=== PATIENT | female | born 1970 | race Caucasian/White ===

== ENCOUNTER → 2018-02-01 07:29 | Outpatient (CLI) | payer OTHER, SELFPAY ==
--- NOTE | 2018-02-01 07:37 | CT_ITS ---
STUDY: CT ABDOMEN AND PELVIS WITHOUT CONTRAST REASON FOR EXAM: Female, 47 years old. Right lower quadrant pain RADIATION DOSAGE (If Supplied By Facility): CTDIvol = ( 16.83 ) mGy, DLP = ( 862.06 ) mGycm TECHNIQUE: Transaxial images were obtained from the dome of the diaphragm to the symphysis pubis without oral contrast, and without intravenous contrast. Sagittal and coronal images were reconstructed. # of Images: 456 Individualized dose optimization techniques were used for this CT. COMPARISON: None. FINDINGS: The visualized lung bases are unremarkable. The visualized portions of the heart are within normal limits. Normal liver. Normal gallbladder and extrahepatic biliary system. Normal spleen. Normal pancreas. Normal bilateral adrenal glands. Bilateral kidney stones are noted the largest measures 7 mm. There is no hydronephrosis. Normal visualized stomach. Normal small intestine. Normal colon. There is non-visualization of the appendix. Normal abdominal aorta. Normal inferior vena cava. Normal retroperitoneum. Normal urinary bladder. Normal visualized uterus and ovaries. An IUD is seen in good position. There is a small umbilical hernia containing fat. Normal osseous structures. CT/Abdomen/Pelvis without Cont IMPRESSION: Bilateral kidney stones are noted the largest measures 7 mm. There is no hydronephrosis. There is a small umbilical hernia containing fat. Electronically Signed: Sandro Baca MD at 16:38 EDT Tel , Service support ,
== END ==
PROVIDERS: Family Provider Family Medicine; PCP Family Medicine; Referring Provider Urology; Visit Provider Urology
DX: N20.0 Calculus of kidney (principal); R10.31 Right lower quadrant pain
CPT/HCPCS: 74176

== ENCOUNTER 2018-03-12 07:54 | Day surgery (SDC) | payer OTHER, SELFPAY ==
[2018-03-12 08:12] VITALS: BP 108/65; PULSE 68; RESP 14; TEMP 36.8; O2SAT 95; BMI 26.9
[2018-03-12 08:31] LABS: Internal QC Validated? YES +Cl - CLEAR BKGD
[2018-03-12 08:32] LABS: Pregnancy, Urine Negative Negative
[2018-03-12] MEDS: Cefazolin 2 GM in 0.9% Normal Saline 100 ML IV (09:49)
--- NOTE | 2018-03-12 11:31 | OP.PN_ITS ---
Immediate Post-Op Note Date of Procedure: 03/12/18 Primary Surgeon/Physician: Aliya Green MD children's tutor nursery: Aliya Green Pre-Operative Diagnosis: left renal calculi, right flank pain Post-Operative Diagnosis: same Surgery/Procedure Performed:: cystoscopy, right retrograde pyelogram, left ureteroscopy, laser lithotripsy, left ureteral stent insertion. Description of Surgical Findings:: multiple left renal stones, hard. Estimated Blood Loss: 5cc Specimen's removed: none Type of Anesthesia:: General - Admit VTE Documentation VTE Present on Admission: Yes VTE Mechan Device Prophylaxis: SCD's VTE Pharm Prophylaxis ordered?: No Reason prophylaxis not ordered:: Treatment Not Indicated
--- NOTE | 2018-03-12 11:33 | DCINST_ITS ---
Discharge Diet: No Restrictions Discharge Activity: May not drive while taking narcotic pain medications., May Shower Call your doctor if your incision/area has: Increased Pain/ Swelling Call your doctor if you observe: Fever of 101 or Higher, Inability to urinate, Inability to have a bowel movement, Chest pain, Calf discomfort, Uncontrolled pain Allergies/Adverse Reactions: Allergies codeine Allergy (Verified 03/05/18 11:41) Other HALLUCINATION Gadolinium-MRI Contrast Medium [DYE] Allergy (Verified 03/05/18 11:41) Anaphylaxis shellfish derived Allergy (Verified 03/05/18 11:41) Anaphylaxis Medications to take at Discharge Cephalexin [Keflex] 500 mg PO Q12 3 Days #6 cap 03/12/18 Oxycodone HCl/Acetaminophen [Percocet 5/325] 1 - 2 tab PO Q6H PRN PRN 7 Days #30 tab 03/12/18 Phenazopyridine HCl [Pyridium] 200 mg PO TID PRN PRN 7 Days #30 tab 03/12/18 The following prescriptions were given: Oxycodone HCl/Acetaminophen [Percocet 5/325] 1 - 2 tab PO Q6H PRN PRN 7 Days #30 tab PRN Reason: Pain Cephalexin [Keflex] 500 mg PO Q12 3 Days #6 cap Phenazopyridine HCl [Pyridium] 200 mg PO TID PRN PRN 7 Days #30 tab PRN Reason: Bladder Spasms Primary Care Physician: Scottie Matthew MD [Primary Care Provider] - Test Results: Test results from this visit will be discussed in further detail at your follow- up appointment, if applicable. Please Follow Up With: Aliya Green MD When: 2 weeks for stent removal, call for appt Proposed Discharge Date: 03/12/18
[2018-03-12 11:40] VITALS: BP 108/65; BP 113/69; PULSE 54; RESP 18; TEMP 36.4; O2SAT 96
[2018-03-12 11:45] VITALS: BP 108/65; BP 97/46; PULSE 58; RESP 18; O2SAT 98
--- NOTE | 2018-03-12 11:53 | OP.PCM_ITS ---
Problem List (1) Renal calculus, left Status: Acute (2) Right flank pain Status: Acute Report of Operation Date of Procedure: 03/12/18 Pre-Operative Diagnosis: left renal calculi, right flank pain Post-Operative Diagnosis: same Surgery/Procedure Performed:: cystoscopy, right retrograde pyelogram, left ureteroscopy, laser lithotripsy, left ureteral stent insertion. Description of Surgical Findings:: multiple left renal stones, hard. log buncher: Aliya Green Type of Anesthesia:: General Specimen's removed: none Estimated Blood Loss (mL): 5cc Description of Procedure: The patient is a 47-year-old female with a few left renal calculi the largest being approximately 8 mm in size. She has previously failed extracorporal shockwave lithotripsy. After discussing all the risks benefits and alternatives, she agreed to proceed with ureteroscopy and laser lithotripsy with stent insertion. She is also having right flank discomfort. We decided to perform a retrograde pyelogram to rule out ureteral calculi as a source of her discomfort. Patient was taken to the operating room and placed on the operating room table. Anesthesia monitored the head, neck, airway, IV access, vital signs throughout the case. Once anesthesia was a probably administered the patient was placed in dorsal lithotomy position was prepped and draped in usual sterile fashion. A cystourethroscopy revealed no abnormalities. At this time the right ureteral orifice was intubated with a open ended ureteral catheter. A retrograde pyelogram was performed under fluoroscopic visualization and revealed no evidence of filling defect, obstruction and no hydronephrosis. The calyces were sharp and normal. Attention was then turned toward the left ureteral orifice were two 0.035 Glidewire were passed into the renal pelvis without difficulty. One was left as a safety wire and the other was used for passage of a ureteral re-access sheath. This was done under fluoroscopic visualization. The ureteroscope was then inserted through the sheath and the stones were identified in the middle pole calyces and were shocked into multiple small fragments too small to basket retrieved. The stone was very hard and difficult to break and I had to increase both the power and hertz settings. Following fragmentation of stones as much as possible, the ureteral access sheath was removed under direct visualization with the ureteroscope. A 6 Frisian 24 cm double-J stent was passed over the safety wire and positioning was confirmed with fluoroscopy. The bladder was then emptied and the patient was awakened and taken to the recovery room in good condition. Grafts/Implants Used: 6fr 24 cm ureteral stent - Complications none - Admit VTE Documentation VTE Present on Admission: Yes VTE Mechan Device Prophylaxis: SCD's VTE Pharm Prophylaxis ordered?: No Reason prophylaxis not ordered:: Treatment Not Indicated
[2018-03-12 12:00] VITALS: BP 108/65; BP 96/57; PULSE 57; RESP 18; O2SAT 98
[2018-03-12 12:17] VITALS: BP 107/79; BP 108/65; PULSE 53; RESP 18; TEMP 37.1; O2SAT 97
[2018-03-12 12:52] VITALS: BP 108/65; BP 110/72; PULSE 60; RESP 16; TEMP 36.9; O2SAT 98
--- OUTSIDE RECORDS SUMMARY | 2018-04-23 20:26 | XMS RPT_ITS ---
:1970 Author Organization OHIP Care Team Providers Name Role Phone Aliya Green Attending Unavailable Scottie Mosher Primary Care Unavailable Aliya Green Referring Unavailable Aliya Green Attending Unavailable Aliya Green Referring Unavailable Scottie Mosher Primary Care Unavailable Aliya Green Attending Unavailable Aliya Green Referring Unavailable Scottie Mosher Primary Care Unavailable SCOTTIE MOSHER Admitting Unavailable SCOTTIE MOSHER Attending Unavailable ANMOL MARIE JR Consulting Unavailable ANMOL MARIE JR Attending Unavailable SCOTTIE MOSHER Referring Unavailable ANMOL MARIE JR Admitting Unavailable ANMOL MARIE JR Attending Unavailable ANMOL MARIE JR Attending Unavailable SCOTTIE MOSHER Referring Unavailable MANUEL PAVON Referring Unavailable MANUEL PAVON Referring Unavailable RANCHO WAGGONER III Attending Unavailable MANUEL PAVON Attending Unavailable MANUEL PAVON Referring Unavailable MANUEL PAVON Attending Unavailable MANUEL PAVON Referring Unavailable MANUEL PAVON Attending Unavailable ANMOL MARIE Attending Unavailable SCOTTIE MOSHER Referring Unavailable [facility] Primary Care Unavailable ANMOL MARIE Admitting Unavailable ANMOL MARIE Attending Unavailable SCOTTIE MOSHER Primary Care Unavailable ANMOL MARIE Attending Unavailable SCOTTIE MOSHER Referring Unavailable SCOTTIE MOSHER Primary Care Unavailable ANMOL MARIE Attending Unavailable SCOTTIE MOSHER Referring Unavailable SCOTTIE MOSHER Primary Care Unavailable PROBLEMS PROBLEMS DATE TYPE CONDITION / CODE ATTENDING STATUS SOURCE 03/21/2018 Unknown N20.0 - Calculus Aliya Green Active [facility] N20.0(ICD-10) Hospital Repository 03/15/2018 Active Constipation, DAISY III, Active [facility] unspecified / RANCHO F Other [place] K59.00(ICD-10) Repository 10/18/2017 Active Encounter for NA Active [facility] screening Other [place] mammogram for Repository malignant neoplasm of breast / Z12.31(ICD-10) 10/18/2017 Active Unspecified NA Active [facility] ovarian cyst, Other [place] left side / Repository N83.202(ICD-10) 08/30/2017 Active Calculus of GANDALE JR, Active [facility] kidney / ANMOL GENE Other [place] N20.0(ICD-10) Repository 08/30/2017 Active Unspecified GANGEL JR, Active [facility] abdominal pain / ANMOL GENE Other [place] R10.9(ICD-10) Repository 08/30/2017 Admitting Unknown / ANMOL MARIE Active [facility] UNK(Unknown) [facility] System Repository 08/28/2017 Active Calculus of NA Active [facility] ureter / Other [place] N20.1(ICD-10) Repository 08/28/2017 Active Urinary tract NA Active [facility] infection, site Other [place] not specified / Repository N39.0(ICD-10) 07/03/2017 Active Unknown / MANUEL PAVON Active [facility] UNK(Unknown) J Main [place] Repository PROCEDURES PROCEDURES No Procedure Records FoundRESULTS RESULTS ABDOMEN SINGLE VIEW Observed: 03/21/2018 Status: F Source: [place] 3:39 PM [facility] REPOSITORY [facility] Imaging Services [address] [place] [address] Abdomen Single View MR#: [id number] Acct: [id number] Name: LYNN NIETO Rep #: [id number] : 1970 F 47 From: Dean Mccall MD PCP: Scottie Mosher MD Status: REG CLI Study: Abdomen Single View Date of Exam: 03/21/18 Exam# [id number] Ordering Dr: Aliya Green MD STUDY: X-RAY - ABDOMEN/PELVIS REASON FOR EXAM: Female, 47 years old. Left-sided stent. Urinary stone. TECHNIQUE: Single AP view of the abdomen / pelvis. COMPARISON: CT February 01, 2018 FINDINGS: Normal visualized lung bases. There is an unremarkable bowel gas pattern. There is no demonstrated free abdominal air. There is stent extending from the left renal pelvis to the urinary bladder. There are small, 0.1 to 0.2 cm, stones in the region of the kidneys. There is IUD in the pelvis. Normal visualized osseous structures. RAD/Abdomen Single View IMPRESSION: Left renal stones. Left sided stent. Electronically Signed: Dean Mccall MD at 15:43 EST , Service support , CC: Aliya Green MD; Scottie Mosher MD House Fellow: Signed ED NOTE Observed: 03/15/2018 Status: COMPLETED Source: [place] 9:05 AM [facility] REPOSITORY HNO ID: [id number] Author: Klauida Shaver) AL[place] DELIA Clements Service: (none) Author Type: Registered Nurse Type: ED Notes Filed: 03/15/2018 9:11 AM Note Text: Patient had a large bm after fleets-does not feel she needs mag citrate. XR ACUTE ABD SERIES Observed: 03/15/2018 Status: F Source: [place] 2V ABD+CXR 7:59 AM [facility] OTHER CAMPUS REPOSITORY * * *Final Report* * * DATE OF EXAM: Mar 15 2018 7:59AM MDX [id number] - XR ACUTE ABD SERIES 2V ABD+CXR / PROCEDURE REASON: Nausea, vomiting * * * * Physician Interpretation * * * * EXAMINATION / TECHNIQUE: XR ACUTE ABD SERIES 2V ABD+CXR HISTORY: NAUSEA \EandE\ VOMITING Nausea, vomiting . COMPARISON: 08/21/2017 RESULT: Cardiac silhouette normal in size. No focal consolidation, pleural effusion, or pneumothorax. Left ureteral stent is noted. Moderate diffuse colonic stool burden is identified. Nonobstructive bowel gas pattern. No evidence of free intraperitoneal air. Intrauterine device again noted. IMPRESSION: Moderate diffuse colonic stool burden. Nonobstructive bowel gas pattern. House Fellow: LYNDA Transcribe Date/Time: Mar 15 2018 8:02A Dictated by : SEBASTIAN CHAIREZ MD This examination was interpreted and the report reviewed and electronically signed by: SEBASTIAN CHAIREZ MD on Mar 15 2018 8:05AM EST [id number] ED PROV NOTE Observed: 03/15/2018 Status: COMPLETED Source: [place] 7:50 AM [facility] OTHER CAMPUS REPOSITORY HNO ID: [id number] Author: Rancho Waggoner III, MD Service: (none) Author Type: Physician Type: ED Provider Notes Filed: 03/15/2018 3:50 PM Note Text: ED Provider Note Patient Name: Lynn Nieto SERVICE DATE: 03/15/18 History Patient presents with: Constipation Abdominal Pain This is a 47-year-old female that presents emergency Department with complaint of constipation nausea and vomiting. She states she recently had ureteral stents placed on Sunday in the pain from her kidney stones is now improved though she now feels constipated. She states her last bowel movement was approximately 4 days ago she feels as if she has an urge to have a bowel movement but is unable to. She has not had a fever. She complains of dull cramping pain. She denies chest pain she denies fever. She has no difficulty urinating. PAST MEDICAL HISTORY Diagnosis Date - IUD (intrauterine device) in place 10/02/2017 Mirena- her 3rd - Kidney stone PAST SURGICAL HISTORY Procedure Laterality Date - APPENDECTOMY HX - LAPAROSCOPIC APPENDECTOMY during first - TOOTH EXTRACTION x4 wisdom teeth FAMILY HISTORY Problem Relation Age of Onset - No Family History No Family History female/colon/prostate/pancreatic CA Social History Social History Main Topics - Smoking status: Never Smoker - Smokeless tobacco: Never Used - Alcohol use No - Drug use: No - Sexual activity: Yes Partners: Male control/ protection: IUD ALLERGIES Allergen Reactions - Codeine Mental Status Change - Shellfish Containin* Hives Review of Systems Constitutional: Negative for chills, fatigue and fever. HENT: Negative for congestion, drooling, ear discharge, rhinorrhea, sneezing, sore throat and trouble swallowing. Eyes: Negative for pain and discharge. Respiratory: Negative for apnea, cough, shortness of breath, wheezing and stridor. Cardiovascular: Negative for chest pain and palpitations. Gastrointestinal: Positive for abdominal pain, constipation, nausea and vomiting. Negative for abdominal distention, blood in stool and diarrhea. Genitourinary: Negative for difficulty urinating, dysuria and hematuria. Musculoskeletal: Negative for arthralgias, back pain, myalgias, neck pain and neck stiffness. Skin: Negative for pallor, rash and wound. Neurological: Negative for dizziness, seizures, speech difficulty, light-headedness and numbness. Hematological: Negative for adenopathy. Psychiatric/Behavioral: Negative for agitation and confusion. Physical Exam BP 118/65 Pulse 96 Temp (Src) 98.2 (Oral) Resp 16 Wt 160 lb (72.6kg) SpO2 96% Physical Exam Constitutional: She appears well-developed and well-nourished. No distress. HENT: Head: Normocephalic and atraumatic. Mouth/Throat: No oropharyngeal exudate. Eyes: Pupils are equal, round, and reactive to light. Conjunctivae are normal. Right eye exhibits no discharge. Left eye exhibits no discharge. Neck: Normal range of motion. No JVD present. No tracheal deviation present. Cardiovascular: Normal rate, regular rhythm and normal heart sounds. Exam reveals no gallop and no friction rub. No murmur heard. Pulmonary/Chest: Effort normal. No stridor. No respiratory distress. She has no wheezes. She has no rales. Abdominal: Soft. Bowel sounds are normal. She exhibits no distension and no mass. There is no tenderness. There is no rebound and no guarding. Genitourinary: Rectum normal. Rectal exam shows no fissure. Musculoskeletal: Normal range of motion. She exhibits no edema or tenderness. Neurological: She is alert. No cranial nerve deficit. She exhibits normal muscle tone. Coordination normal. Skin: No rash noted. She is not diaphoretic. No erythema. No pallor. Psychiatric: She has a normal mood and affect. Her behavior is normal. Judgment and thought content normal. Nursing note and vitals reviewed. Diagnostic Testing ED Labs Ordered and Reviewed CBC + DIFF - Abnormal; Notable for the following: Result Value Ref Range Abs Neut (ANC) 8.13 (*) 1.45 - 7.50 k/uL All other components within normal limits MAGNESIUM BLD LIPASE BLD COMP METABOLIC PANEL Procedures ED Course / Clinical Impression Clinical Impressions as of Mar 15 1550 Constipation, unspecified constipation type MDM / Disposition / Plan CBC is unremarkable CMP reveals some mild hyperglycemia acute abdominal series reveals moderate diffuse colonic stool burden. The patient was given a fleets enema in emergency department with improvement after a large bowel movement. She states her pain has resolved she will be discharged home. The patient was DISCHARGED: Counseled patient regarding lab results AND radiology results AND suspected diagnosis AND need for follow- up. Discharged home with verbal and written instructions. They were instructed to return as needed for persistent or worsening symptoms or any new concerns. Condition at time of disposition: stable SIGNATURE: MD Rancho Burrows III, MD 03/15/181549 ED NOTE Observed: 03/15/2018 Status: COMPLETED Source: [place] 7:48 AM [facility] OTHER CAMPUS REPOSITORY HNO ID: [id number] Author: Klaudia (Rn) AL[place] DELIA Clements Service: (none) Author Type: Registered Nurse Type: ED Notes Filed: 03/15/2018 7:49 AM Note Text: Patient transported to [facility] with [facility]. CBC AND DIFFERENTIAL Collected: 03/15/2018 Status: F Source: [place] 7:10 AM CLINIC OTHER CAMPUS REPOSITORY TYPE CODE TESTS RESULT OUT OF REFERENCE UNITS RANGE LAB WBC 3.70-11.00 k/uL WBC 10.51 LAB RBC 3.90-5.20 m/uL RBC 4.33 LAB HGB 11.5-15.5 g/dL Hemoglobin 13.8 LAB HCT 36.0-46.0 % Hematocrit 41.5 LAB MCV 80.0-100.0 fL MCV 95.8 LAB MCH 26.0-34.0 pG MCH 31.9 LAB MCHC 30.5-36.0 g/dL MCHC 33.3 LAB RDWCV 11.5-15.0 % RDW-CV 12.5 LAB PLTCT 150-400 k/uL Platelet Count 205 LAB MPV 9.0-12.7 fL MPV 10.9 LAB ANEUT % Neut% 77.3 LAB AANEUT 1.45-7.50 k/uL Abs Neut High 8.13 LAB ALYMP % Lymph% 15.5 LAB AALYMP 1.00-4.00 k/uL Abs Lymph 1.63 LAB AMONO % Barren% 6.2 LAB AAMONO <0.87 k/uL Abs Barren 0.65 LAB AEOS % Eosin% 0.7 LAB AAEOS <0.46 k/uL Abs Eosin 0.07 LAB ABASO % Baso% 0.3 LAB AABASO <0.11 k/uL Abs Baso 0.03 Performed By: #### CBCDIF, LIPA, MG1 #### [facility] [address] [place] [phone] LIPASE Collected: 03/15/2018 Status: F Source: [place] 7:10 AM [facility] OTHER [place] REPOSITORY TYPE CODE TESTS RESULT OUT OF REFERENCE UNITS RANGE LAB LIPA 16-61 U/L Lipase 19 Performed By: #### CBCDIF, LIPA, MG1 #### [facility] [address] [phone] MAGNESIUM Collected: 03/15/2018 Status: F Source: [place] 7:10 AM [facility] OTHER [place] REPOSITORY TYPE CODE TESTS RESULT OUT OF REFERENCE UNITS RANGE LAB MG 1.7-2.3 mg/dL Magnesium 1.8 Performed By: #### CBCDIF, LIPA, MG1 #### [facility] [address] [place] [phone] COMP METABOLIC PANEL Collected: 03/15/2018 Status: F Source: [place] 7:10 AM [facility] OTHER [place] REPOSITORY TYPE CODE TESTS RESULT OUT OF REFERENCE UNITS RANGE LAB TP 6.3-8.0 g/dL Protein, Total 6.9 LAB ALB 3.9-4.9 g/dL Albumin 4.2 LAB CA 8.5-10.2 mg/dL Calcium, Total 9.3 LAB TBIL 0.2-1.3 mg/dL Bilirubin, Total 0.8 LAB ALKP 34-123 U/L Alkaline Phosphatase 45 LAB AST 13-35 U/L AST 14 LAB GLU 74-99 mg/dL Glucose High 107 Result Comment: The [place] [employer] Association (ADA) provides guidance for cutoff values for fasting glucose and random glucose. The ADA defines fasting as no caloric intake for at least 8 hours. Fas ting plasma glucose results between 100 to 125 mg/dL indicate increased risk for diabetes (prediabetes). Fasting plasma glucose results greater than or equal to 126 mg/dL meet the criteria for diagnosis of diabetes. In the absence of unequivocal hyperglycemia, results should be confirmed by repeat testing. In a patient with classic symptoms of hyperglycemia or hyperglycemic crisis, random plasma glucose results greater than or equal to 200 mg/dL meet the criteria for diagnosis of diabetes. Reference: Standards of Medical Care in Diabetes 2016, [place] [employer] Association. Diabetes Care. 2016.39(Suppl 1). LAB BUN 7-21 mg/dL BUN 15 LAB CRET 0.58-0.96 mg/dL Creatinine 0.77 LAB NA 136-144 mmol/L Sodium 139 LAB K 3.7-5.1 mmol/L Potassium 4.0 LAB CL 97-105 mmol/L Chloride 102 LAB CO2 22-30 mmol/L CO2 26 LAB AGAP 9-18 mmol/L Anion Gap 11 LAB ALT 7-38 U/L ALT 14 LAB GFRAA eGFR- Amer. >60 LAB GFRNAA . eGFR-All Other Races >60 Result Comment: eGFR (Estimated GFR) Units of measure: mL/min/1.73 meters squared eGFR is derived from the reexpressed MDRD Study equation using the following parameters: serum creatinine, age, gender and race. The creatinine assay has been calibrated to be traceable to IDMS. An eGFR <60 mL/min/1.73m2 for >3 months is consistent with chronic kidney disease. Refer to KDOQI guidelines for clinical interpretation. In patients with unstable renal function, e.g. those with acute kidney injury, the eGFR may not accurately reflect actual GFR. Performed By: #### [facility] #### [facility] [address] [facility] [phone] ED NOTE Observed: 03/15/2018 Status: COMPLETED Source: [place] 6:52 AM CLINIC OTHER CAMPUS REPOSITORY O ID: [id number] Author: Aj (Rn) ALMA DELIA More Service: (none) Author Type: Registered Nurse Type: ED Notes Filed: 03/15/2018 6:53 AM Note Text: Pt presents to ED after having stents for kidney stones placed on Sunday. Last BM was before the procedure. Pt sts increased ABD pain and urge to stool, but feels like body parts are coming out when she tries to push. OPERATIVE REPORT Observed: 03/12/2018 Status: F Source: [place] 11:53 AM [facility] REPOSITORY [facility] Medical Records Department [address] [place] [address] Operative Report 03/12/18 1147 MR#: [id number] Acct: [id number] Name: LYNN NIETO Rep #: [id number] : 1970 47 From: Aliya Green MD PCP: Scottie Mosher MD Status: REG [facility] Location: [place] [address] Problem List (1) Renal calculus, left Status: Acute (2) Right flank pain Status: Acute Report of Operation Date of Procedure: 03/12/18 Pre-Operative Diagnosis: left renal calculi, right flank pain Post-Operative Diagnosis: same Surgery/Procedure Performed:: cystoscopy, right retrograde pyelogram, left ureteroscopy, laser lithotripsy, left ureteral stent insertion. Description of Surgical Findings:: multiple left renal stones, hard. contact printer dry film: Aliya Green Type of Anesthesia:: General Specimen's removed: none Estimated Blood Loss (mL): 5cc Description of Procedure: The patient is a 47-year-old female with a few left renal calculi the largest being approximately 8 mm in size. She has previously failed extracorporal shockwave lithotripsy. After discussing all the risks benefits and alternatives, she agreed to proceed with ureteroscopy and laser lithotripsy with stent insertion. She is also having right flank discomfort. We decided to perform a retrograde pyelogram to rule out ureteral calculi as a source of her discomfort. Patient was taken to the operating room and placed on the operating room table. Anesthesia monitored the head, neck, airway, IV access, vital signs throughout the case. Once anesthesia was a probably administered the patient was placed in dorsal lithotomy position was prepped and draped in usual sterile fashion. A cystourethroscopy revealed no abnormalities. At this time the right ureteral orifice was intubated with a open ended ureteral catheter. A retrograde pyelogram was performed under fluoroscopic visualization and revealed no evidence of filling defect, obstruction and no hydronephrosis. The calyces were sharp and normal. Attention was then turned toward the left ureteral orifice were two 0.035 Glidewire were passed into the renal pelvis without difficulty. One was left as a safety wire and the other was used for passage of a ureteral re-access sheath. This was done under fluoroscopic visualization. The ureteroscope was then inserted through the sheath and the stones were identified in the middle pole calyces and were shocked into multiple small fragments too small to basket retrieved. The stone was very hard and difficult to break and I had to increase both the power and hertz settings. Following fragmentation of stones as much as possible, the ureteral access sheath was removed under direct visualization with the ureteroscope. A 6 Faroese 24 cm double-J stent was passed over the safety wire and positioning was confirmed with fluoroscopy. The bladder was then emptied and the patient was awakened and taken to the recovery room in good condition. Grafts/Implants Used: 6fr 24 cm ureteral stent - Complications none - Admit VTE Documentation VTE Present on Admission: Yes VTE Mechan Device Prophylaxis: SCD's VTE Pharm Prophylaxis ordered?: No Reason prophylaxis not ordered:: Treatment Not Indicated 03/12/18 1153 <Electronically signed by Aliya Green MD> Date Aliya Green MD CC: Aliya Green MD; Scottie Mosher MD Signed DISCHARGE INSTRUCTION Observed: 03/12/2018 Status: F Source: BHARGAV 11:33 AM [facility] REPOSITORY [facility] Medical Records Department [address] [place] [address] Instructions for Home/Discharge Instructions 03/12/18 1131 MR#: [id number] Acct: [id number] Name: LYNN NIETO Rep #: [id number] : 1970 47 From: Aliya Green MD PCP: Scottie Mosher MD Status: REG NEC Discharge Diet: No Restrictions Discharge Activity: May not drive while taking narcotic pain medications., May Shower Call your doctor if your incision/area has: Increased Pain/ Swelling Call your doctor if you observe: Fever of 101 or Higher, Inability to urinate, Inability to have a bowel movement, Chest pain, Calf discomfort, Uncontrolled pain Allergies/Adverse Reactions: Allergies codeine Allergy (Verified 03/05/18 11:41) Other HALLUCINATION Gadolinium-MRI Contrast Medium [DYE] Allergy (Verified 03/05/18 11:41) Anaphylaxis shellfish derived Allergy (Verified 03/05/18 11:41) Anaphylaxis Medications to take at Discharge Cephalexin [Keflex] 500 mg PO Q12 3 Days #6 cap 03/12/18 Oxycodone HCl/Acetaminophen [Percocet 5/325] 1 - 2 tab PO Q6H PRN PRN 7 Days #30 tab 03/12/18 Phenazopyridine HCl [Pyridium] 200 mg PO TID PRN PRN 7 Days #30 tab 03/12/18 The following prescriptions were given: Oxycodone HCl/Acetaminophen [Percocet 5/325] 1 - 2 tab PO Q6H PRN PRN 7 Days #30 tab PRN Reason: Pain Cephalexin [Keflex] 500 mg PO Q12 3 Days #6 cap Phenazopyridine HCl [Pyridium] 200 mg PO TID PRN PRN 7 Days #30 tab PRN Reason: Bladder Spasms Primary Care Physician: Scottie Mosher MD [Primary Care Provider] - Test Results: Test results from this visit will be discussed in further detail at your follow-up appointment, if applicable. Please Follow Up With: Aliya Green MD When: 2 weeks for stent removal, call for appt Proposed Discharge Date: 03/12/18 03/12/18 1133 <Electronically signed by Aliya Green MD> Date Aliya Green MD CC: Scottie Mosher MD ,URINE Collected: 03/12/2018 Status: F Source: BHARGAV 8:05 AM [facility] REPOSITORY TYPE CODE TESTS RESULT OUT OF REFERENCE UNITS RANGE LAB L400.8000 Negative Normal HCGUQUAL Negative Result Comment: Very dilute urine specimens, as indicated by a low specific gravity, may not contain cash applications representative levels of hCG. If is still suspected, a first morning urine specimen should be collected 48 hours later and tested. Performed By: #### [id number] #### [facility] [address] [place] [place], [address] ABDOMEN/PELVIS WITHOUT Observed: 02/01/2018 Status: F Source: BHARGAV CONT 7:38 AM [facility] REPOSITORY [facility] Imaging Services [address] [place] [address] Abdomen/Pelvis without Cont MR#: [id number] Acct: [id number] Name: LYNN NIETO Rep #: [id number] : 1970 F 47 From: Sandro Baca MD PCP: Scottie Mosher MD Status: REG CLI Study: Abdomen/Pelvis without Cont Date of Exam: 02/01/18 Exam# [id number] Ordering Dr: Aliya Green MD STUDY: CT ABDOMEN AND PELVIS WITHOUT CONTRAST REASON FOR EXAM: Female, 47 years old. Right lower quadrant pain RADIATION DOSAGE (If Supplied By Facility): CTDIvol = ( 16.83 ) mGy, DLP = ( 862.06 ) mGycm TECHNIQUE: Transaxial images were obtained from the dome of the diaphragm to the symphysis pubis without oral contrast, and without intravenous contrast. Sagittal and coronal images were reconstructed. # of Images: 456 Individualized dose optimization techniques were used for this CT. COMPARISON: None. FINDINGS: The visualized lung bases are unremarkable. The visualized portions of the heart are within normal limits. Normal liver. Normal gallbladder and extrahepatic biliary system. Normal spleen. Normal pancreas. Normal bilateral adrenal glands. Bilateral kidney stones are noted the largest measures 7 mm. There is no hydronephrosis. Normal visualized stomach. Normal small intestine. Normal colon. There is non-visualization of the appendix. Normal abdominal aorta. Normal inferior vena cava. Normal retroperitoneum. Normal urinary bladder. Normal visualized uterus and ovaries. An IUD is seen in good position. There is a small umbilical hernia containing fat. Normal osseous structures. CT/Abdomen/Pelvis without Cont IMPRESSION: Bilateral kidney stones are noted the largest measures 7 mm. There is no hydronephrosis. There is a small umbilical hernia containing fat. Electronically Signed: Sandro Baca MD at 16:38 EDT Tel , Service support , CC: Aliya Green MD; Scottie Mosher MD House Fellow: Signed PROGRESS Observed: 10/30/2017 Status: COMPLETED Source: [place] 10:29 AM [facility] REPOSITORY HNO ID: [id number] Author: Manuel Pavon MD Service: (none) Author Type: Physician Type: Progress Notes Filed: 10/31/2017 11:59 AM Note Text: Lynn Nieto presents today for IUD check. She had a Mirena placed on 10/02/17. She has had no complications since placement. Hasn't had sex; did try checking for strings- wasn't able to feel them. REVIEW OF SYSTEMS: GI: No nausea, vomiting, diarrhea or constipation : No history of dysuria, frequency or incontinence PHYSICAL EXAMINATION: BP 110/70 ABDOMEN:soft, non-tender, no masses, no hepatosplenomegaly and no lymphadenopathy EXTERNAL GENITALIA: Normal genitalia and Bartholins, Urethra, Sken'e normal CERVIX: multiparous and smooth, no lesions. IUD strings visible. UTERUS: normal size, mid-plane, regular, non-tender and freely mobile ADNEXA: negative for tenderness or masses IMPRESSION/PLAN: IUD correctly positioned. Patient counseled regarding monthly string check. Follow up for annual exam or sooner if needed. Manuel Pavon MD CNOV Observed: 10/30/2017 Status: COMPLETED Source: [place] 9:30 AM [facility] REPOSIT[facility] Office Visit (OBGMEM) LYNN NIETO ([id number]) 1970 F Date Time Provider Department 10/30/17 9:30 AM MANUEL PAVON [facility] During your visit today, we recorded the following information about you: Blood pressure 110/70 Manuel Pavon MD, MD 10/31/2017 11:59 AM Signed Lynn Nieto presents today for IUD check. She had a Mirena placed on 10/02/17. She has had no complications since placement. Hasn't had sex; did try checking for strings- wasn't able to feel them. REVIEW OF SYSTEMS: GI: No nausea, vomiting, diarrhea or constipation : No history of dysuria, frequency or incontinence PHYSICAL EXAMINATION: BP 110/70 ABDOMEN:soft, non-tender, no masses, no hepatosplenomegaly and no lymphadenopathy EXTERNAL GENITALIA: Normal genitalia and Bartholins, Urethra, Sken'e normal CERVIX: multiparous and smooth, no lesions. IUD strings visible. UTERUS: normal size, mid-plane, regular, non-tender and freely mobile ADNEXA: negative for tenderness or masses IMPRESSION/PLAN: IUD correctly positioned. Patient counseled regarding monthly string check. Follow up for annual exam or sooner if needed. Manuel Pavon MD Referring Provider: SELF [[id number]] Allergies As of Date: 10/30/2017 Noted Allergy Reaction CODEINE 11/21/2011 1 - Mental Status Change SHELLFISH CONTAINING PRODUCTS 08/21/2017 4 - Hives Date Reviewed: 10/30/2017 Reviewed by: Manuel Pavon MD - Fully Assessed Reason for Visit: Follow Up [171] Cmt: String Check Primary Visit Diagnosis:Surveillance of previously prescribed intrauterine contraceptive device [Z30.431] Prescriptions as of 10/30/2017 Sig: MIRENA INTRAUTERINE by INTRAUTERINE route. DUEXIS 800 MG-26.6 MG TABLET Problem List As Of Date 10/30/2017 Noted Resolved Pre-procedural examination [Z01.818] INVALID FOR*07/08/2012 IUD (intrauterine device) in place [Z97.5] More... Kidney stone on right side [N20.0] INVALID FOR* Renal stone [N20.0] INVALID FOR* More... Right flank pain [R10.9] INVALID FOR* Disposition: Return in 1 year (on 10/30/2018) for Annual Exam. Follow-up and Disposition History Recorded Encounter Status:Closed by MANUEL PAVON MD on 10/31/17 CNCO Observed: 10/19/2017 Status: COMPLETED Source: [place] 9:28 AM [facility] REPOSITORY HNO ID: [id number] Author: Mammography Coordinator Service: (none) Author Type: Physician Type: Letter Filed: 10/22/2017 11:32 PM Note Text: October 19, 2017 PID: [id number] Lynn Nieto [address] [place] [address] Dear Ms. Nieto, Your recent breast imaging examination performed on 10/18/2017 showed an area that we believe is probably benign (not cancer). You must have a referral/prescription from your physician when calling to schedule your appointment. A six month follow-up is recommended to ensure your breast health. Please call to schedule an appointment for these tests if you have not already done so. Your mammogram demonstrates that you have dense breast tissue, which could hide abnormalities. Dense breast tissue, in and of itself, is a relatively common condition. Therefore, this information is not provided to cause undue concern; rather, it is to raise your awareness and promote discussion with your health care provider regarding the presence of dense breast tissue in addition to other risk factors. Early detection of cancer is very important. We also understand recommendations regarding breast cancer screening are controversial. Please discuss with your primary care provider which strategy is best for you and whether a mammogram is right for you. Your breast images and report will be kept on file here as part of your permanent medical record and are available for your continuing care. Thank you for allowing us to help in meeting your health care needs. Sincerely, Dr. Ramey Interpreting Radiologist [facility] (# mo Follow-up) IMMANUEL SCREENING W JUNAID Observed: 10/18/2017 Status: F Source: [place] 3:18 PM [facility] REPOSITORY * * *Final Report* * * DATE OF EXAM: Oct 18 2017 3:18PM JUAN ANTONIO 0582 - [facility] SCREENING W JUNAID / PROCEDURE REASON: Z12.31-Encounter for screening mammogram for malignant neoplasm of breast * * * * Physician Interpretation * * * * #[id number] - [facility] SCREENING W JUNAID BILATERAL DIGITAL SCREENING MAMMOGRAM TOMOSYNTHESIS WITH CAD: 10/18/2017 HISTORY: Z12.31-Encounter For Screening Mammogram For Malignant Neoplasm Of Breast. RESULT: TECHNIQUE: The study was acquired using full field digital technology and interpreted from soft copy. Digital Breast Tomosynthesis (DBT) images were obtained and used to assist in the interpretation of this examination. Current study was also evaluated with a Computer Aided Detection (CAD). Comparison is made to exam dated: 08/06/2014 mammogram - [facility]. The tissue of both breasts is extremely dense, which lowers the sensitivity of mammography. There is a cluster of calcifications in the left breast at 11 o'clock anterior depth. Finding is seen only on tomography. There also is a cluster of calcifications in the left breast at 12 o'clock in the retroareolar region. Finding is seen only on tomography. No other significant masses, calcifications, or other findings are seen in either breast. IMPRESSION: PROBABLY BENIGN - SHORT TERM INTERVAL FOLLOW-UP RECOMMENDED The cluster of calcifications in the left breast at 11 o'clock anterior depth is probably benign. The cluster of calcifications in the left breast at 12 o'clock in the retroareolar region is probably benign. A follow-up left mammogram in 6 months is recommended to demonstrate stability. Juno jean/genia:10/19/2017 09:28:28 Cash Grain Farmer: Davida CASTRO)(Rohith), [facility] letter sent: # Mo FU Mammogram BI-RADS: 3 Probably benign finding - short term interval follow-up recommended House Fellow: [facility] Transcribe Date/Time: Oct 18 2017 3:07P Dictated by : JUNO RAMEY DO This examination was interpreted and the report reviewed and electronically signed by: JUNO RAMEY DO on Oct 19 2017 9:28AM EST [id number] US DOPPLER COMPLETE Observed: 10/18/2017 Status: F Source: [place] 3:13 PM [facility] OTHER [facility] REPOSITORY * * *Final Report* * * DATE OF EXAM: Oct 18 2017 3:13PM U 1033 - US DOPPLER COMPLETE / PROCEDURE REASON: N83.202-Unspecified ovarian cyst, left side * * * * Physician Interpretation * * * * EXAMINATION: TRANSVAGINAL AND LIMITED TRANSABDOMINAL PELVIC ULTRASOUND CLINICAL HISTORY: Unspecified ovarian cyst, left side TECHNIQUE: Sonography of the pelvis was performed by transvaginal and transabdominal (limited) techniques. Images were obtained and stored in a permanent archive. Duplex and color flow of the ovaries was performed. It was unremarkable. MQ: UFP_1 COMPARISON: None RESULT: Uterus size: 9.5 x 4.5 5.3 cm. IUD is noted. Position is unremarkable. -Orientation: Anteverted -Myometrium: Normal sonographic appearance. -Endometrial echo complex: 0.4 cm -Cervix: normal Right ovary: 2.5 x 1.4 x 1.7 cm Left ovary: 2.5 x 1.5 x 1.9 cm cm 2 cysts in the RIGHT ovary measuring 17 and 10 mm respectively. Pelvis free fluid: None. IMPRESSION: 1. IUD is noted. Position is unremarkable. 2. There are 2 simple cysts in the LEFT ovary House Fellow[facility] Transcribe Date/Time: Oct 19 2017 12:46P Dictated by : JUNO RAMEY DO This examination was interpreted and the report reviewed and electronically signed by: JUNO RAMEY DO on Oct 19 2017 12:49PM EST [id number] US FEMALE PELVIS Observed: 10/18/2017 Status: F Source: [place] TRANSVAG 3:13 PM [facility] OTHER [facility] REPOSITORY * * *Final Report* * * DATE OF EXAM: Oct 18 2017 3:13PM MDU 1060 - US FEMALE PELVIS TRANSVAG / PROCEDURE REASON: N83.202-Unspecified ovarian cyst, left side * * * * Physician Interpretation * * * * EXAMINATION: TRANSVAGINAL AND LIMITED TRANSABDOMINAL PELVIC ULTRASOUND CLINICAL HISTORY: Unspecified ovarian cyst, left side TECHNIQUE: Sonography of the pelvis was performed by transvaginal and transabdominal (limited) techniques. Images were obtained and stored in a permanent archive. Duplex and color flow of the ovaries was performed. It was unremarkable. MQ: UFP_1 COMPARISON: None RESULT: Uterus size: 9.5 x 4.5 5.3 cm. IUD is noted. Position is unremarkable. -Orientation: Anteverted -Myometrium: Normal sonographic appearance. -Endometrial echo complex: 0.4 cm -Cervix: normal Right ovary: 2.5 x 1.4 x 1.7 cm Left ovary: 2.5 x 1.5 x 1.9 cm cm 2 cysts in the RIGHT ovary measuring 17 and 10 mm respectively. Pelvis free fluid: None. IMPRESSION: 1. IUD is noted. Position is unremarkable. 2. There are 2 simple cysts in the LEFT ovary House Fellow: [facility] Transcribe Date/Time: Oct 19 2017 12:46P Dictated by : JUNO RAMEY DO This examination was interpreted and the report reviewed and electronically signed by: JUNO RAMEY DO on Oct 19 2017 12:49PM EST [id number] PROGRESS Observed: 10/02/2017 Status: COMPLETED Source: [place] 2:19 PM [facility] REPOSITORY HNO ID: [id number] Author: Manuel Pavon MD Service: (none) Author Type: Physician Type: Progress Notes Filed: 10/02/2017 11:34 PM Note Text: Lynn Nieto presents today for removal of IUD due to course of therapy completed; to be immediately followed by IUD insertion for contraception, dysmenorrhea, menstrual dysfunction. No LMP recorded. Patient is not currently having periods (Reason: IUD). Additionally she has been in the hospital recently for kidney stones - had CT's 08/20 AND 08/28- the first noted a ~5cm left ovarian cyst, the 2nd noted 'unremarkable pelvis'- will get U/S to ensure resolution GC/chlamydia: Not done: no risk factors and/or patient declines screening test: negative Side effects including irregular bleeding were discussed with the patient. She understands that it should be removed in 5 years or sooner if she desires a . IUD source: office provided IUD lot #: [id number] Exp date: 03/05 UNIVERSAL PROTOCOL / SAFETY CHECKLIST Procedure to be performed: Mirena removal AND reinsertion Sign in Communication: Completed Time Out: Team Confirms the Correct Patient, Correct Procedure, Correct Site and Site Marking, Correct Position (if applicable), Prep and Dry Time (if applicable). Time: 1410 Affirmation of Time Out: YES Sign Out Discussion: Completed Manuel Pavon MD Speculum placed in vagina, IUD string visualized and grasped with ring forceps. Removed intact without difficulty. The uterus sounded to 9 cm and the uterus is Midposition.. After prepping the cervix with betadine and using sterile technique, the Mirena IUD was inserted without difficulty and the string was cut to ~2-3cm from the external os of the cervix. Patient tolerated procedure well. PLAN: Patient was advised to observe for signs and symptoms of infection including but not limited to fever, malodorous vaginal discharge and/or pain. She was told to check the string monthly for accurate placement. Bleeding expectations were reviewed. Follow up in one month. Additionally get U/S to assess ovarian cyst Manuel Pavon MD CNOV Observed: 10/02/2017 Status: COMPLETED Source: [place] 1:30 PM [facility] REPOSITORY Office Visit (OBGMEM) LYNN NIETO ([id number]) 1970 F Date Time Provider Department 10/02/17 1:30 PM [facility] During your visit today, we recorded the following information about you: Blood pressure Weight 92/64 74.3 kg Florida Harrington MA 10/02/2017 1:43 PM Signed Patient presents with: IUD: Mirena replc [place] Pavon MD, MD 10/02/2017 11:34 PM Signed Lynn Nieto presents today for removal of IUD due to course of therapy completed; to be immediately followed by IUD insertion for contraception, dysmenorrhea, menstrual dysfunction. No LMP recorded. Patient is not currently having periods (Reason: IUD). Additionally she has been in the hospital recently for kidney stones - had CT's 08/20 AND 08/28- the first noted a ~5cm left ovarian cyst, the 2nd noted 'unremarkable pelvis'- will get U/S to ensure resolution GC/chlamydia: Not done: no risk factors and/or patient declines screening test: negative Side effects including irregular bleeding were discussed with the patient. She understands that it should be removed in 5 years or sooner if she desires a . IUD source: office provided IUD lot #: [id number] Exp date: 03/05 UNIVERSAL PROTOCOL / SAFETY CHECKLIST Procedure to be performed: Mirena removal AND reinsertion Sign in Communication: Completed Time Out: Team Confirms the Correct Patient, Correct Procedure, Correct Site and Site Marking, Correct Position (if applicable), Prep and Dry Time (if applicable). Time: 1410 Affirmation of Time Out: YES Sign Out Discussion: Completed Manuel Pavon MD Speculum placed in vagina, IUD string visualized and grasped with ring forceps. Removed intact without difficulty. The uterus sounded to 9 cm and the uterus is Midposition.. After prepping the cervix with betadine and using sterile technique, the Mirena IUD was inserted without difficulty and the string was cut to ~2-3cm from the external os of the cervix. Patient tolerated procedure well. PLAN: Patient was advised to observe for signs and symptoms of infection including but not limited to fever, malodorous vaginal discharge and/or pain. She was told to check the string monthly for accurate placement. Bleeding expectations were reviewed. Follow up in one month. Additionally get U/S to assess ovarian cyst MD Manuel Unger MD, 10/02/2017 2:19 PM Signed POST IUD INSTRUCTIONS You may have irregular bleeding during the first 3 months of use. You may have mild-severe cramping for the next 48 hours. You may use over the counter medication (Motrin, Tylenol) as needed. Your IUD must be removed or replaced in 3 years if you have a Shari, 5 years if you have a Mirena or Kyleena and 10 years if you have a Paragard. Call my office for signs/symptoms of infection such as severe cramping, fever, or unusual bleeding. Check for string placement as instructed by your doctor. If you have any additional questions, please contact the office. Referring Provider: MANUEL PAVON [[id number]] Allergies As of Date: 10/02/2017 Noted Allergy Reaction CODEINE 11/21/2011 1 - Mental Status Change SHELLFISH CONTAINING PRODUCTS 08/21/2017 4 - Hives Date Reviewed: 10/02/2017 Reviewed by: Manuel Pavon MD - Fully Assessed Reason for Visit: IUD [60] Cmt: Mirena replc Insertion Of IUD [291] IUD Removal [1950] Reason For Visit History Recorded Primary Visit Diagnosis:Encounter for IUD insertion [Z30.430] Other Visit Diagnoses: examination or test, unconfirmed [Z32.00] Encounter for IUD removal [Z30.432] Ovarian cyst, left [N83.202] Order(s):HCG QUAL UR B/O [[id number]] Order #: [id number] INSERT INTRAUTERINE DEVICE [[id number]] Order #: [id number] REMOVE INTRAUTERINE DEVICE [[id number]] Order #: [id number] [] levonorgestrel 20 mcg/24 hr (5 years) 1 Each intrauterine device (MIRENA)Disp: Rfl: US FEMALE PELVIS TRANSVAG [[id number]] Order #: [id number] FUTURE Problem List As Of Date 10/02/2017 Noted Resolved Pre-procedural examination [Z01.818] INVALID FOR*07/08/2012 IUD (intrauterine device) in place [Z97.5] More... Kidney stone on right side [N20.0] INVALID FOR* Renal stone [N20.0] INVALID FOR* More... Right flank pain [R10.9] INVALID FOR* Other instructions from your clinician: POST IUD INSTRUCTIONS You may have irregular bleeding during the first 3 months of use. You may have mild-severe cramping for the next 48 hours. You may use over the counter medication (Motrin, Tylenol) as needed. Your IUD must be removed or replaced in 3 years if you have a Shari, 5 years if you have a Mirena or Kyleena and 10 years if you have a Paragard. Call my office for signs/symptoms of infection such as severe cramping, fever, or unusual bleeding. Check for string placement as instructed by your doctor. If you have any additional questions, please contact the office. Visit Notes: >> [place] Miranda Oct 02, 2017 1:43 PM Status: Signed Patient presents with: IUD: Mirena replc [place] Harrington MA Prescriptions ordered this encounter Disp Refills Start End LEVONORGESTREL 20 MCG/24 HR (5 YEARS* 10/02/2017 10/02/2017 Route: INTRAUTERINE Medications Discontinued During This Encounter tamsulosin ER (FLOMAX) 0.4 mg cp24 7 ca* 0 08/28/2017 10/02/2017 Class: Print RX Route: ORAL Sig: Take 1 capsule by mouth daily at bedtime for 7 days. Disc: Course of therapy completed levonorgestrel (MIRENA) 20 mcg/24 ho* 1 Ea* 0 07/08/2012 10/02/2017 Class: In Office Sig: Use as directed after in office placement. Disc: Course of therapy completed Disposition: Return in 1 month (on 11/01/2017), or if symptoms worsen or fail to improve, for string check. Follow-up and Disposition History Recorded Encounter Status:Closed by MANUEL PAVON MD on 10/02/17 PROCEDURE Observed: 09/06/2017 Status: COMPLETED Source: [place] 9:33 AM [facility] OTHER [facility] REPOSITORY HNO ID: [id number] Author: Anmol Marie Jr. Service: (none) Author Type: Physician Type: Procedures Filed: 09/06/2017 9:34 AM Note Text: CYSTOSCOPY PROCEDURE NOTE: Lynn Nieto is a 47 year old female who presents with right side ureteral stent for a cystoscopy, right side ureteral stent removal Sp r eswl with take back for obstructing distal fragment Pt ID verified with patient: Yes Fire risk assessment done Procedure verified with patient: Yes Procedure confirmed with physician and supportive employment case manager: Yes Sign In: History and Physical Exam reviewed and is unchanged. Primary Diagnosis: Kidney Stones Informed Consent Discussed: Yes. Risks, benefits, alternatives and personnel discussed with patient who consents to proceed. Sign in Communication: Completed Time Out: Team Confirms the Correct Patient, Correct Procedure; cystoscopy right side ureteral stent removal Correct Site and Site Marking, Correct Position (if applicable). Fire Safety Check List Reviewed: Yes Affirmation of Time Out: Yes Sign Out: Sign Out Discussion: Completed Physician: Anmol Marie Jr, MD Pre procedure dx: right ureteral calculus Post procedure dx: same A urinalysis was performed revealing no evidence of infection. The benefits, risks, alternatives of the cystoscopy procedure and personnel were discussed with the patient. The verbal consent was obtained and the patient agrees to proceed. Female staff present for entire exam/procedure. Procedure: The patient was placed on the procedure table in the supine position and prepped and draped in the usual sterile fashion. 2% Lidocaine Jelly was placed per urethra as an anesthetic in the standard fashion. Once adequate local anesthesia was achieved, the tip of the flexible cystoscope was carefully placed into the urethra under direct visual guidance. The scope was negotiated per urethra with no evidence of stricture into the bladder. Careful long endoscopy was carried out. The posterior, superior and lateral carter and dome of the bladder were all well visualized and the scope was retroflexed upon itself. The findings were consistent with no evidence of bladder mucosal pathology. The right side ureteral stent was grabbed with graspers, the stent and the scope were removed from the patient. Female nurse present The patient tolerated the procedure without complications. Patient was given standard post-procedure instructions, and was directed to complete the course of oral antibiotics and increase oral fluid intake as directed. ASSESSMENT/PLAN: 6 months kub and 24 hour urine prior Stone prevention Anmol Marie Jr, MD CNOV Observed: 09/06/2017 Status: COMPLETED Source: [place] 8:30 AM [facility] OTHER [place] REPOSITORY Office Visit (AKURFL) LYNN NIETO ([id number]) 1970 F Date Time Provider Department 09/06/17 8:30 AM ANMOL MARIE JR [facility] During your visit today, we recorded the following information about you: Weight Height 70.8 kg 1.676 m Noelle Ara [facility] 09/06/2017 9:02 AM Signed Lynn Nieto has been off all blood thinners for 5 days. Allergies are ALLERGIES Allergen Reactions - Codeine Mental Status Change - Shellfish Containin* Hives Allergy to amoxicillin, betadine, cipro, latex or lidocaine? No Meds given prior to procedure: None Noelle Bullock [facility] Anmol Marie Jr, MD 09/06/2017 9:34 AM Signed CYSTOSCOPY PROCEDURE NOTE: Lynn Nieto is a 47 year old female who presents with right side ureteral stent for a cystoscopy, right side ureteral stent removal Sp r eswl with take back for obstructing distal fragment Pt ID verified with patient: Yes Fire risk assessment done Procedure verified with patient: Yes Procedure confirmed with physician and supportive employment case manager: Yes Sign In: History and Physical Exam reviewed and is unchanged. Primary Diagnosis: Kidney Stones Informed Consent Discussed: Yes. Risks, benefits, alternatives and personnel discussed with patient who consents to proceed. Sign in Communication: Completed Time Out: Team Confirms the Correct Patient, Correct Procedure; cystoscopy right side ureteral stent removal Correct Site and Site Marking, Correct Position (if applicable). Fire Safety Check List Reviewed: Yes Affirmation of Time Out: Yes Sign Out: Sign Out Discussion: Completed Physician: Anmol Marie Jr, MD Pre procedure dx: right ureteral calculus Post procedure dx: same A urinalysis was performed revealing no evidence of infection. The benefits, risks, alternatives of the cystoscopy procedure and personnel were discussed with the patient. The verbal consent was obtained and the patient agrees to proceed. Female staff present for entire exam/procedure. Procedure: The patient was placed on the procedure table in the supine position and prepped and draped in the usual sterile fashion. 2% Lidocaine Jelly was placed per urethra as an anesthetic in the standard fashion. Once adequate local anesthesia was achieved, the tip of the flexible cystoscope was carefully placed into the urethra under direct visual guidance. The scope was negotiated per urethra with no evidence of stricture into the bladder. Careful long endoscopy was carried out. The posterior, superior and lateral carter and dome of the bladder were all well visualized and the scope was retroflexed upon itself. The findings were consistent with no evidence of bladder mucosal pathology. The right side ureteral stent was grabbed with graspers, the stent and the scope were removed from the patient. Female nurse present The patient tolerated the procedure without complications. Patient was given standard post-procedure instructions, and was directed to complete the course of oral antibiotics and increase oral fluid intake as directed. ASSESSMENT/PLAN: 6 months kub and 24 hour urine prior Stone prevention MD Anmol Sher Jr, Jr, MD 09/06/2017 9:34 AM Signed Counseled patient on increasing fluids, avoiding salt, avoiding caffeine, avoiding large portions of animal fat/meats at one time and increasing citrates in diet. Referring Provider: SCOTTIE MOSHER [[id number]] Allergies As of Date: 09/06/2017 Noted Allergy Reaction CODEINE 11/21/2011 1 - Mental Status Change SHELLFISH CONTAINING PRODUCTS 08/21/2017 4 - Hives Date Reviewed: 09/06/2017 Reviewed by: Anmol Marie Jr. - Fully Assessed Reason for Visit: Stent Extraction [372] Primary Visit Diagnosis:Kidney stone on right side [N20.0] Order(s):UA DIP B/O [[id number]] Order #: [id number] CALCIUM 24 HR URINE [SQUCALCD] Order #: [id number] FUTURE MAGNESIUM 24 HOUR UR [SQUMAGD] Order #: [id number] FUTURE PHOSPHORUS 24 HR UR [SQUPHOSD] Order #: [id number] FUTURE URIC ACID 24 HR UR [SQUURICD] Order #: [id number] FUTURE POTASSIUM 24 HR UR [SQUKD] Order #: [id number] FUTURE CREATININE 24 HR UR [SQUCRD] Order #: [id number] FUTURE SODIUM 24 HR URINE [SQUNAD] Order #: [id number] FUTURE OXALATE 24 HR URINE [SQUOXALD] Order #: [id number] FUTURE CITRATE 24 HR URINE [SQUCITD] Order #: [id number] FUTURE XR ABDOMEN 1V SUPINE [[id number]] Order #: [id number] FUTURE Prescriptions as of 09/06/2017 Sig: TAMSULOSIN 0.4 MG CAPSULE Take 1 capsule by mouth daily* LEVONORGESTREL 20 MCG/24 HR (* Use as directed after in offi* Problem List As Of Date 09/06/2017 Noted Resolved Pre-procedural examination [Z01.818] INVALID FOR*07/08/2012 IUD (intrauterine device) in place [Z97.5] More... Kidney stone on right side [N20.0] INVALID FOR* Renal stone [N20.0] INVALID FOR* More... Right flank pain [R10.9] INVALID FOR* Other instructions from your clinician: Counseled patient on increasing fluids, avoiding salt, avoiding caffeine, avoiding large portions of animal fat/meats at one time and increasing citrates in diet. Visit Notes: >> Noelle Bullock CMA Gita September 06, 2017 8:44 AM Status: Signed Lynnrodolfo Nieto has been off all blood thinners for 5 days. Allergies are ALLERGIES Allergen Reactions - Codeine Mental Status Change - Shellfish Containin* Hives Allergy to amoxicillin, betadine, cipro, latex or lidocaine? No Meds given prior to procedure: None Noelle Bullock CMA Disposition: Return in about 6 months (around 03/09/2018). Follow-up and Disposition History Recorded Encounter Status:Closed by ANMOL MARIE MD on 09/06/17 ANES POST Observed: 08/31/2017 Status: COMPLETED Source: [place] 5:40 PM [facility] REPOSITORY HNO ID: [id number] Author: Carlos Coffman Service: Anesthesiology Author Type: Physician Type: Anesthesia PostOp Filed: 08/31/2017 6:03 PM Note Text: POST ANESTHESIA EVALUATION NOTE SERVICE DATE: 08/31/2017 SERVICE TIME: 6:03 PM : 1970 Vitals: 08/31/17 0759 08/31/17 1436 08/31/17 1545 08/31/17 1615 Temp: 36.2 ?C (97.2 ?F) 36.4 ?C (97.5 ?F) 36.5 ?C (97.7 ?F) 36.7 ?C (98.1 ?F) 08/31/17 1436 08/31/17 1545 08/31/17 1600 08/31/17 1615 BP: 114/67 111/68 117/57 117/67 08/31/17 1600 08/31/17 1615 08/31/17 1625 08/31/17 1630 Pulse: 72 83 76 70 08/31/17 1600 08/31/17 1615 08/31/17 1625 08/31/17 1630 Resp: 13 13 13 13 08/31/17 1600 08/31/17 1615 08/31/17 1625 08/31/17 1630 SpO2: 100% 100% 100% 100% Validated Vital Signs: Yes POST ANES STATUS: No apparent anesthetic complications. The patient is appropriately hydrated with stable respiratory and cardiovascular status. Patient has safe and adequate airway control. The patient has appropriate pain relief and no significant post operative nausea or vomiting. The patient has achieved baseline mental status. Further assessment by Anesthesia Service: None Other Remarks: SIGNATURE: Carlos Coffman MD PATIENT NAME: Lynn Nieto DATE: August 31, 2017 TIME: 6:03 PM PAGER/CONTACT #: [phone] NURSING PROG Observed: 08/31/2017 Status: COMPLETED Source: [place] 4:35 PM [facility] REPOSITORY HNO ID: [id number] Author: Dakota TaverasRn) ALMA DELIA Valero Service: (none) Author Type: Registered Nurse Type: Nursing Progress Note Filed: 08/31/2017 4:35 PM Note Text: Voided, minimal blood- back into bed off monitors NURSING PROG Observed: 08/31/2017 Status: COMPLETED Source: [place] 4:33 PM [facility] OTHER CAMPUS REPOSITORY HNO ID: [id number] Author: Dakota TaverasRn) ALMA DELIA Valero Service: (none) Author Type: Registered Nurse Type: Nursing Progress Note Filed: 08/31/2017 4:33 PM Note Text: Pt ambulated to the bathroom, steady gait NURSING PROG Observed: 08/31/2017 Status: COMPLETED Source: [place] 4:23 PM [facility] REPOSITORY HNO ID: [id number] Author: Dakota (Rn) ALMA DELIA Valero Service: (none) Author Type: Registered Nurse Type: Nursing Progress Note Filed: 08/31/2017 4:28 PM Note Text: Attempt report, RN not available CALCULI ANALYSIS Collected: 08/31/2017 Status: F Source: [facility] 3:45 PM HEALTH SYSTEM REPOSITORY TYPE CODE TESTS RESULT OUT OF REFERENCE UNITS RANGE LAB CALTX(LOINC ) Calculus Type Right renal LAB STO1X(LOINC ) Calculi SEE BELOW Analysis Result Comment: Calculus Type RIGHT RENAL Note (NOTE) Calculus Color: DARK BROWN Calculus Size & Weight: MULTIPLE PIECES, 0.0423 GRAMS Composition: CALCIUM OXALATE MONOHYDRATE - 70% CALCIUM OXALATE DIHYDRATE - 20% MINOR COMPONENTS - 10% This test was developed and its performance characteristics determined by the [facility] [place] ([facility]). It has not been cleared or approved by the FDA. [facility] is regulated under CLIA as qualified to perform high-complexity testing. This test is used for clinical purposes. It should not be regarded as investigational or for research. Performing Laboratory: [facility] [address] [place] [address] Performed By: #### STONX #### [address] [address] OPERATIVE NO Observed: 08/31/2017 Status: COMPLETED Source: [place] 3:42 PM [facility] REPOSITORY HNO ID: [id number] Author: Jigar Woodall Service: Urology Author Type: Resident Type: Operative Report Filed: 08/31/2017 3:44 PM Note Text: Attestation signed by Anmol Marie Jr. at 09/03/2017 8:11 AM ?I was present for the critical and gillespie portions of the surgery and I was immediately available to provide assistance Anmol Marie Jr, MD UROLOGY OPERATIVE REPORT PATIENT NAME: Lynn Nieto DATE OF : 1970 TODAY'S DATE: 08/31/2017 PreOp Dx right ureteral calculus PostOp Dx Same Operation Cystoscopy, retrograde pyelogram, Rightureteroscopy, laser lithotripsy, stone basket extraction ureteral stent placement Surgeon Anmol Marie MD Assist Jigar Woodall MD EBL Minimal Drains Right and 6fr X 24cmJJ Navas none Specimen right ureteral calculus Condition To PACU Lynn Nieto is a 47 year old female who presents with a Right calculus. After having a discussion on treatment options, risks and benefits, the patient wishes to proceed forward with surgical intervention Patient was brought to the operating room. A thorough time out was performed and everyone present was in agreement. Patient was placed on OR table. Anesthesia and lines were maintained by the anesthesia team. Patient was placed in the dorsal lithotomy position. Prepped and draped in usual fashion. Pressure points were padded. A cystourethroscope was inserted through the urethra and the bladder was inspected. A guide wire was advanced to the level of the kidney, confirmed on fluoroscopy. The 6.9fr semirigid ureteroscope was advanced alongside the wire. Care was taken to minimize injury to the ureteral orifice. The stone was able to be visualized. It was laser lithotripsied into numerous small passable fragments. Escape basket was used to extract all fragments from the ureter. One final pass of the ureteroscope did confirm there was no significant stone burden remaining. A Right and 6fr X 24cmJJ was advanced over the wire through the cystoscope under fluoroscopic visualization. Once in position the wire was removed. A good curl was noted in the kidney and the bladder. The bladder was emptied and patient awoken from anesthesia and transported to PACU in stable condition. Jigar Woodall MD 08/31/17 3:42 PM ABDOMEN 1 VIEW (IN Observed: 08/31/2017 Status: F Source: [facility]) 3:22 PM HEALTH SYSTEM REPOSITORY Performed at [facility] APPROVED BY: SHARONDA BURTON MD INTRAOPERATIVE FLUOROSCOPIC EXAMINATION; RETROGRADE UROGRAPHY DATE: 08/31/2017 15:09 COMPARISON: Abdominal x-ray examination performed on 08/30/2017. HISTORY: Calculus of kidney ENCOUNTER: Not applicable TECHNIQUE: Images from fluoroscopic examination of the right urinary collecting system during retrograde urography were submitted for interpretation. Fluoroscopy time: 2.4 minutes Fluoroscopy dose: 0.8 mGy RESULT: Examination is limited due to fluoroscopic technique. 2 separate fluoroscopic images were submitted for interpretation. Initial fluoroscopic image demonstrates placement of cystoscope overlying the region the bladder. Subsequent image demonstrates placement of a double-J right ureteral stent, the proximal aspect of the stent overlies expected region of the right renal pelvis. The distal aspect of the stent overlies expected region of the urinary bladder. No discrete opacification of the collecting system noted on the provided images. Again demonstrated is intrauterine device. IMPRESSION: Placement of right double-J ureteral stent, as described. Please refer to procedure notes for full details. ANES PREOP Observed: 08/31/2017 Status: COMPLETED Source: [place] 2:51 PM [facility] OTHER CAMPUS REPOSITORY O ID: [id number] Author: Nicola Mtz Service: Anesthesiology Author Type: Physician Type: Anesthesia PreOp Filed: 08/31/2017 2:54 PM Note Text: ANESTHESIOLOGY DAY OF SURGERY NOTE SERVICE DATE: 08/31/2017 SERVICE TIME: 2:51 PM : 1970 Procedure(s) (LRB): LASER CYSTOURETHROSCOPY W/ URETEROSCOPY AND/OR PYELOSCOPY W/ LITHOTRIPSY HOLMIUM (Right) Surgeon(s): Kevyn Priest Estimated body mass index is 25.18 kg/m? as calculated from the following: Height as of this encounter: 167.6 cm (5' 6). Weight as of this encounter: 70.8 kg (156 lb). Most recent hematocrit and potassium results: Hematocrit 41.1 08/30/2017 Potassium 4.2 08/30/2017 ANES DOS/PREOP NOTE: Vitals: 08/31/17 0000 08/31/17 0252 08/31/17 0759 08/31/17 1436 BP: 106/58 107/59 104/58 114/67 Pulse: 61 72 66 63 Resp: Temp: 36.3 ?C (97.3 ?F) 36.1 ?C (97 ?F) 36.2 ?C (97.2 ?F) 36.4 ?C (97.5 ?F) TempSrc: Temporal Artery Temporal Artery Temporal Artery Temporal Artery SpO2: 97% 98% 98% 98% Weight: Height: ACTIVE PROBLEM LIST IUD (Intrauterine Device) in Place Kidney Stone On Right Side Renal Stone Right Flank Pain PAST MEDICAL HISTORY Diagnosis Date - IUD (intrauterine device) in place 07/08/12 Mirena - Kidney stone PAST SURGICAL HISTORY Procedure Laterality Date - APPENDECTOMY HX - LAPAROSCOPIC APPENDECTOMY during first - TOOTH EXTRACTION x4 wisdom teeth FAMILY HISTORY Problem Relation Age of Onset - No Family History No Family History female/colon/prostate/pancreatic CA Social History: Social History Substance Use Topics - Smoking status: Never Smoker - Smokeless tobacco: Never Used - Alcohol use No No current facility-administered medications on file prior to encounter. Current Outpatient Prescriptions on File Prior to Encounter: ketorolac (TORADOL) 10 mg tablet Take 1 tablet by mouth every 6 hours as needed. cephALEXin (KEFLEX) 500 mg capsule Take 1 capsule by mouth twice daily for 7 days. tamsulosin ER (FLOMAX) 0.4 mg cp24 Take 1 capsule by mouth daily at bedtime for 7 days. oxyCODONE-acetaminophen (PERCOCET) 5-325 mg tablet Take 1 tablet by mouth every 6 hours as needed for Pain for up to 3 days. levonorgestrel (MIRENA) 20 mcg/24 hour (5 years) IUD Use as directed after in office placement. Current Facility-Administered Medications: [MAR Hold due to Transfer] NaCl 0.9% iv infusion 125 mL/hr INTRAVENOUS CONTINUOUS Cary (Res) Nabila Last Rate: 125 mL/hr at 08/30/172328 125 mL/hr at 08/30/172328 [MAR Hold due to Transfer] HYDROcodone 5 mg - acetaminophen 325 mg tablet (NORCO) 1-2 tablet ORAL q 6 H PRN Cary (Res) Nabila [MAR Hold due to Transfer] morphine 1-2 mg injection 1-2 mg INTRAVENOUS q 3 H PRN [place] (Res) Nabila [MAR Hold due to Transfer] ondansetron (PF) 4 mg injection (ZOFRAN) 4 mg INTRAVENOUS q 6 H PRN [place] (Res) Nabila [MAR Hold due to Transfer] docusate sodium 100 mg cap(s) (COLACE) 100 mg ORAL BID Cary (Res) [place] 100 mg at 08/30/172035 [MAR Hold due to Transfer] ketorolac 15 mg injection (TORADOL) 15 mg INTRAVENOUS q 6 H [place] (Res) [place] 15 mg at 08/31/17 1316 [MAR Hold due to Transfer] polyethylene glycol 3350 17 g packet (MIRALAX, GLYCOLAX) 17 g ORAL DAILY Cary (Res) [place]abil[place] 17 g at 08/30/17 1724 [MAR Hold due to Transfer] tamsulosin ER 0.4 mg cap(s) (FLOMAX) 0.4 mg ORAL DAILY Cary (Res) [place] 0.4 mg at 08/30/17 1725 Allergies: ALLERGIES Allergen Reactions - Codeine Mental Status Change - Shellfish Containin* Hives DOS EXAM: Adequate NPO Status: Yes Anesthetic Risks, Benefits, Alternatives, Personnel and Consent Discussed: Yes Patient agrees to proceed: Yes Previous Anesthesia: PONV, no PONV during lithotripsy on 08/20/2017 Airway Assessment: MP 2; Neck ROM: Full ROM without neurologic symptoms; Airway Evaluation: No significant abnormalities Symptoms of Sleep Apnea: None Dentition: Teeth intact Additional Physical Exam: Lungs: Patient health status unchanged since recent history and physical. See history and physical for exam findings. Cardiac: Patient health status unchanged since recent history and physical. See history and physical for exam findings. Additional Pertinent Findings: N/A Blood Products: Not anticipated for this procedure Anesthetic Plan: General Anesthetic Monitoring: Standard ASA Monitors Pain Management Plan: Parenteral or Oral ASA Class: 2 Other Medical Problems: Kidney stones Chronic Beta Safia medication administered within 24 hours: N/A I have interviewed and examined the patient. I have reviewed the medical record and/or the pre-anesthesia evaluation, pertinent labs, and test results. Significant changes in the patient's condition since the History and Physical, not otherwise documented in primary service progress notes: No This contains updated information obtained within 48 hours of Surgery/Procedure. 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 yes Advance Directive: Health Literacy: 1. How often do you need to have someone help you when you read instructions, pamphlets, or other written material from your doctor or pharmacy? Never - 1 2. How confident are you filling out medical forms by yourself? Quite a bit - 2 If Patient scores > 3 on either question, the following interventions were put into place: Patient did not score > 3 FUNCTIONAL AND COGNITIVE/BEHAVIORAL PRIOR TO ADMISSION: Baseline Mental Status: Alert AND Oriented, Person, Place , Time and Situation Functional Status: Independent Does Patient Currently Receive Any Community Services or Home Care? None Equipment Prior to Admission: None Has the Patient Been in a Residential Facility in the Past 30 days? No SOCIAL: Living Arrangement: Home Lives With: Spouse Financial Resources: Employed: Primary Contact: Extended Emergency Contact Information Primary Emergency Contact: GenaroKirby nuñez Address: [address] [place], [place] [id number] [facility] Mobile Relation: Spouse Supportive: Yes Other Important Patient Contacts: None Caregiver Assessment: Caregiver is ready, willing and able to meet the patient's needs as recommended by the inter-professional team? Yes Patient's transition needs and plan for meeting these needs: to be determined Does the patient have an acute stroke diagnosis, or has the patient had a stroke during this admission? No Medication Adherence: I am convinced of the importance of my prescription medication: Agree completely - 0 I worry that my prescription medication will do more harm than good to me Disagree completely - 0 I feel financially burdened by my [id number] expenses for my prescription medication: Disagree completely - 0 Patient is categorized as low risk < 2 Are you interested in bedside delivery of your medications? No Food Concerns: In the Last Month, Have You had Trouble Getting Food? No trouble getting food During the Last Month, Have You Worried Whether Your Food Would Run Out Before You Had Enough Money to Buy More? No Is the Patient Psychosocially Complex? No ASSESSMENT AND PLAN: Medical Needs: 2 or more chronic diseases Psychosocial Needs: None FREEDOM OF CHOICE EXPLAINED: N/A POTENTIAL TRANSITION PLANS Home Patient independent [employer] from home with spouse. +PCP. +Rx coverage. No DME. No AD - declines at this time. Anticipate d/c home when medically stable. SIGNATURE: Alisia Murphy RN PATIENT NAME: Lynn Nieto DATE: August 31, 2017 TIME: 1:29 PM PAGER/CONTACT #: [phone] ALLIED HEALTH Observed: 08/31/2017 Status: COMPLETED Source: [place] 11:02 AM CLINIC OTHER CAMPUS REPOSITORY HNO ID: [id number] Author: Opal TaverasRoad Gang SupervisorChaplain Hayder Service: Spiritual Care Author Type: Road Gang Supervisor Type: Allied Health Filed: 08/31/2017 11:03 AM Note Text: Spiritual Care Record ? Anointing/Matthews PATIENT NAME: Lynn Nieto DATE: August 31, 2017 NOTE: Patient was blessed by Fr. Lopez from N/A blum on (date): 08/31/17. Signature: Chaplain Elena Question? Please contact the Spiritual Care Department for assistance. This is an electronically created document. IF PRINTED, PLEASE DO NOT REMOVE FROM THE CHART OR MODIFY PRINTED COPY. PROGRESS Observed: 08/31/2017 Status: COMPLETED Source: [place] 7:23 AM CLINIC OTHER CAMPUS REPOSITORY HNO ID: [id number] Author: Cary Dahl Service: Urology Author Type: Resident Type: Progress Notes Filed: 08/31/2017 7:47 AM Note Text: Attestation signed by Anmol Marie Jr. at 08/31/2017 3:15 PM I saw and evaluated the patient. Discussed with the resident and agree with resident's findings and plan as documented in the resident's note. Anmol Marie Jr, MD UROLOGY PROGRESS NOTE PATIENT NAME: Lynn Nieto DATE OF : 1970 ADMISSION DATE: 08/30/2017 3:46 PM Subjective No acute events overnight. Pain controlled - given scheduled toradol afebrile Objective VS: BP 107/59 Pulse 72 Temp 36.1 ?C (97 ?F) (Temporal Artery) Resp 18 Ht 167.6 cm (5' 6) Wt 70.8 kg (156 lb) SpO2 98% BMI 25.18 kg/m? I AND O - 24hr: Intake/Output Summary (Last 24 hours) at 08/31/17 0193 Last data filed at 08/30/17 194 Gross per 24 hour Intake 360 ml Output 100 ml Net 260 ml Physical Exam: General: Neck: Resp: Abdomen: No acute distress Supple Normal effort Soft, non-tender, nondistended : No navas Labs and Imaging Studies LABS: BMP: Glucose (mg/dL) Date Value 08/30/2017 84 Potassium (mEq/L) Date Value 08/30/2017 4.2 Sodium (mEq/L) Date Value 08/30/2017 137 Chloride (mEq/L) Date Value 08/30/2017 107 CO2 (mEq/L) Date Value 08/30/2017 25 Creatinine (mg/dL) Date Value 08/30/2017 0.74 BUN (mg/dL) Date Value 08/30/2017 9 Anion Gap (no units) Date Value 08/30/2017 9 Calcium (mg/dL) Date Value 08/30/2017 8.8 CBC: Hemoglobin (g/dL) Date Value 08/28/2017 13.6 HGB (g/dL) Date Value 08/30/2017 13.6 Hematocrit (%) Date Value 08/30/2017 41.1 WBC (thou/cmm) Date Value 08/30/2017 7.90 Platelet Count (thou/cmm) Date Value 08/30/2017 250 Urinalysis: Specific [place], Ur Date Value Ref Range Status 08/30/2017 1.015 1.005 - 1.030 Final Glucose, Urine Date Value Ref Range Status 08/30/2017 NEGATIVE Negative mg/dL Final Bilirubin, Urine Date Value Ref Range Status 08/30/2017 NEGATIVE Negative Final Ketones, Urine Date Value Ref Range Status 08/30/2017 NEGATIVE Negative mg/dL Final Hemoglobin/Blood,Ur Date Value Ref Range Status 08/28/2017 Large (A) Negative Final Protein, Urine Date Value Ref Range Status 08/30/2017 NEGATIVE Negative mg/dL Final Urobilinogen, Urine Date Value Ref Range Status 08/30/2017 1.0 0.0 - 1.0 EU/dL Final Nitrites Date Value Ref Range Status 08/28/2017 Negative Negative Final Nitrites Urine Date Value Ref Range Status 08/30/2017 NEGATIVE Negative Final WBC, Urine Date Value Ref Range Status 08/30/2017 3.6 0.0 - 5.0 /hpf Final Urine Culture: No results found for: URCUL RADIOLOGY: Assessment and Plan ASSESSMENT: 47 year old female with bilateral renal stones, distal right ureteral calculi s/p ESWL PLAN: 1) continue NPO/ IVF 2) miralax 3) flomax 4) plan for OR this afternoon Cary Dahl MD Observed: 08/30/2017 Status: F Source: [facility] CULT URINE 8:41 PM HEALTH SYSTEM REPOSITORY Test performed at [facility] <10,000 CFU/ml gram negative bacilli cultured. No further identification or susceptibility testing will be performed. Plates will be held for 5 days. Performed By: #### C_URI #### [facility] [address] [address] URINALYSIS ROUTINE Collected: 08/30/2017 Status: F Source: [facility] 5:30 PM HEALTH SYSTEM REPOSITORY TYPE CODE TESTS RESULT OUT OF RANGE REFERENCE UNITS LAB COLOR(LOIN C) Urine Color YELLOW LAB APPUR(LOIN C) Urine Appearance CLEAR LAB GLUUR(LOIN Negative mg/dL C) Glucose Urine NEGATIVE LAB KETON(LOIN Negative mg/dL C) Ketone Urine NEGATIVE LAB HGBUR(LOIN Negative C) Abnormal Hemoglobin,Urin LARGE e LAB PROTU(LOIN Negative mg/dL C) Protein Urine NEGATIVE LAB NITRI(LOIN Negative C) Nitrites Urine NEGATIVE LAB BILIU(LOIN Negative C) Bilirubin Urine NEGATIVE LAB SPG(LOINC) 1.005-1.030 Specific 1.015 [place], Ur LAB PHUR(LOINC 5.0-8.0 ) pH,Urine 6.5 LAB UROBI(LOIN 0.0-1.0 EU/dL C) Urobilinogen,Ur 1.0 LAB LEUKO(LOIN Negative C) Abnormal Leukocytes TRACE Esterase LAB MUCUS(LOIN None C) Mucus Abnormal Threads FEW LAB RBCU1(LOIN 0.0-5.0 /hpf C) High RBC,Urine 31.0 LAB WBCU1(LOIN 0.0-5.0 /hpf C) WBC, Urine 3.6 LAB EPIT1(LOIN 0.0-5.0 /hpf C) Ep Cells Urine 3.3 LAB BACT1(LOIN None C) Bacteria Urine NONE LAB HYCA1(LOIN 0.0-1.0 /lpf C) Hyaline Cast 0.4 Performed By: #### URIN2 #### [facility] [address] [address] ABDOMEN 1 VIEW Observed: 08/30/2017 Status: F Source: [facility] 5:20 PM HEALTH SYSTEM REPOSITORY Performed at [facility] APPROVED BY: Everardo Larry MD EXAMINATION: ABDOMINAL X-RAY EXAM DATE: 08/30/2017 17:16 TECHNIQUE: Portable supine AP view was obtained. HISTORY: Left renal calculus. COMPARISON: CT abdomen/pelvis 08/20/2017 (via Epic). FINDINGS: Bowel gas pattern is nonobstructive. This exam does not evaluate for free air. Both kidneys are somewhat obscured. A 5 mm calculus projects at the inferior aspect of the left kidney. At le ast 5 renal calculi are seen at the mid aspect of the right kidney, the largest measuring approximately 4 mm. No definite additional calculi are seen. Multiple calcifications in the pelvis presumably reflect phleboliths. An intrauterine device is present. No acute osseous abnormality. IMPRESSION: Bilateral nephrolithiasis. HEMOGRAM Collected: 08/30/2017 Status: F Source: [facility] 5:00 PM HEALTH SYSTEM REPOSITORY TYPE CODE TESTS RESULT OUT OF REFERENCE UNITS RANGE LAB WBC(LOINC) 3.98-10.04 thou/cmm WBC 7.90 LAB RBC(LOINC) 3.93-5.22 mil/cmm RBC 4.21 LAB HGB(LOINC) 11.2-15.7 g/dL Hgb 13.6 LAB HCT(LOINC) 34.1-44.9 % Hct 41.1 LAB MCV(LOINC) 79.4-94.8 fl High MCV 97.6 LAB MCH(LOINC) 25.6-32.2 pg High MCH 32.3 LAB MCHC(LOINC) 31.6-34.8 % MCHC 33.1 LAB RDW(LOINC) 11.7-14.4 % RDW 12.5 LAB RDWSD(LOINC 36.4-46.3 fl ) RDW SD 45.2 LAB PLT(LOINC) 182-369 thou/cmm Platelet 250 LAB MPV(LOINC) 9.4-12.3 fl MPV 10.9 Performed By: #### CBC1 #### [place] [address] BASIC PANEL Collected: 08/30/2017 Status: F Source: [facility] 5:00 HEALTH SYSTEM REPOSITORY TYPE CODE TESTS RESULT OUT OF REFERENCE UNITS RANGE LAB NA(LOINC) 136-145 mEq/L Sodium Blood 137 LAB K(LOINC) 3.5-5.1 mEq/L Potassium Blood 4.2 LAB CL(LOINC) 98-107 mEq/L Chloride Blood 107 LAB CO2(LOINC) 21-32 mEq/L CO2 Blood 25 LAB GLU(LOINC) 70-99 mg/dL Glucose Blood 84 LAB BUN(LOINC) 7-18 mg/dL BUN Blood 9 LAB CREA(LOINC 0.51-0.95 mg/dL ) Creatinine Blood 0.74 LAB CA(LOINC) 8.5-10.1 mg/dL Calcium Blood 8.8 LAB ANGAP(LOIN 8-16 C) Anion Gap 9 Performed By: #### P8 #### [place] [id number] MDRD GFR Collected: 08/30/2017 Status: F Source: [facility] 5:00 [facility] SYSTEM REPOSITORY TYPE CODE TESTS RESULT OUT OF RANGE REFERENCE UNITS LAB GFRFN(LOINC >60mL/min/1.73m ) 2 eGFR >60 Result Comment: If the patient is , multiply the result by 1.210. Performed By: #### GFR #### [facility] [address] [place] [id number] HISTORY PHYSICAL Observed: 08/30/2017 Status: COMPLETED Source: [facility] 4:38 PM CLINIC OTHER CAMPUS REPOSITORY HNO ID: [id number] Author: Cary Dahl Service: Urology Author Type: Resident Type: HANDP Filed: 08/30/2017 4:46 PM Note Text: Attestation signed by Anmol Marie Jr. at 08/31/2017 3:15 PM I saw and evaluated the patient. Discussed with the resident and agree with resident's findings and plan as documented in the resident's note. Anmol Marie Jr, MD Urology History and Physical Date: 08/30/2017 Patient Name: Lynn Nieto Date of : 1970 Admit Date: 08/30/2017 Age: [age] year old PCP: Scottie Mosher MD Narrative: The patient is a 47 year old female with history of right ESWL 08/21/17. She started having ++ right flank pain this Sunday and it persisted. She saw Dr. Marie yesterday with plans for intervention next week but given her persistent pain, was direct admitted. She has had no fever/chills. She had gross hematuria after the procedure but it has improved. 08/28 she went to the ED and had a CT showing possible right distal stones. PAST MEDICAL HISTORY Diagnosis Date - IUD (intrauterine device) in place 3/25/13 Mirena - Kidney stone PAST SURGICAL HISTORY Procedure Laterality Date - APPENDECTOMY HX - LAPAROSCOPIC APPENDECTOMY during first - TOOTH EXTRACTION x4 wisdom teeth Family History Problem Relation Age of Onset - No Family History No Family History female/colon/prostate/pancreatic CA Outpatient Prescriptions Marked as Taking for the 08/30/17 encounter (Hospital Encounter): ketorolac (TORADOL) 10 mg tablet Take 1 tablet by mouth every 6 hours as needed. Disp: 25 tablet Rfl: 0 cephALEXin (KEFLEX) 500 mg capsule Take 1 capsule by mouth twice daily for 7 days. Disp: 14 capsule Rfl: 0 tamsulosin ER (FLOMAX) 0.4 mg cp24 Take 1 capsule by mouth daily at bedtime for 7 days. Disp: 7 capsule Rfl: 0 oxyCODONE-acetaminophen (PERCOCET) 5-325 mg tablet Take 1 tablet by mouth every 6 hours as needed for Pain for up to 3 days. Disp: 12 tablet Rfl: 0 levonorgestrel (MIRENA) 20 mcg/24 hour (5 years) IUD Use as directed after in office placement. Disp: 1 Each Rfl: 0 Medications NaCl 0.9% iv infusion (not administered) HYDROcodone 5 mg - acetaminophen 325 mg tablet (NORCO) (not administered) morphine 1-2 mg injection (not administered) ondansetron (PF) 4 mg injection (ZOFRAN) (not administered) docusate sodium 100 mg cap(s) (COLACE) (not administered) ketorolac 15 mg injection (TORADOL) (not administered) polyethylene glycol 3350 17 g packet (MIRALAX, GLYCOLAX) (not administered) tamsulosin ER 0.4 mg cap(s) (FLOMAX) (not administered) ALLERGIES Allergen Reactions - Codeine Mental Status Change - Shellfish Containin* Hives Social History: Social History Marital status: Spouse name: Years of education: Number of children: Social History Main Topics Smoking status: Never Smoker Smokeless tobacco: Never Used Alcohol use: No Drug use: No Sexual activity: Yes Partners with: Male control/protection: IUD ROS: Constitutional: negative for chills and fevers Respiratory: negative for hemoptysis and shortness of breath Cardiovascular: negative for dyspnea and syncope Gastrointestinal: negative for jaundice, nausea and vomiting Genitourinary:negative for dysuria and hematuria, +flank pain Hematologic/lymphatic: negative for bleeding and lymphadenopathy Integumentary: no new bruises or lesions Musculoskeletal:negative for muscle weakness or pain Neurological: negative for coordination problems and seizures All other systems negative Physical Exam: 08/30/17 1546 08/30/17 1550 08/30/17 1551 BP: 111/68 Pulse: 70 Resp: Temp: 36.7 ?C (98.1 ?F) TempSrc: Oral SpO2: 100% Weight: 70.8 kg (156 lb) Height: 167.6 cm (5' 6) General: Alert, in no acute distress Head: Normocephalic, atraumatic Neck: supple, trachea is midline, no obvious masses Respiratory: normal effort, no audible wheezes Cardiovascular: regular pulse and no cyanosis Musculoskeletal: moving all extremities, normal tone Skin: warm and dry Psych: normal mood and affect, oriented Abdomen: soft, non distended, non tender, no organomegaly, no hernias Labs: CBC: Recent Labs 08/28/17 1345 WBC 7.78 HCT 40.6 MCV 96.4 RBC 4.21 PLT 248 BMP: Recent Labs 08/28/17 1345 NA 141 K 3.7 CO2 27 BUN 15 CA 9.3 Coagulation: No results found for: INR, APTT Lactic acid: No components found for: LACTA Radiology: CT abd/pelvis: IMPRESSION: 1. Multiple bilateral renal calculi. On the right, largest: 4 mm. On the left, largest: 7 mm. 2. ? Mild fullness of left central renal collecting system, similar prior exam. Left parapelvic cysts again noted, similar to prior exam. 3. ?In region of distal right ureter, to the right of L5-S1, a calcification is noted suggestive of distal right ureteral calculus: 5 x 4 mm (2:11). This is not observed previously. 4. ?New tiny hiatal hernia. 5. Tiny left inguinal hernia containing fat. Assessment and Plan: 47 year old female with bilateral renal stones, distal right ureteral calculi s/p ESWL PLAN: 1) NPO at midnight 2) toradol, pain control 3) miralax 4) flomax 5) strain all urine 6) add on for procedure tomorrow. Cary Dahl MD 08/30/2017 4:39 PM HOSP Observed: 08/30/2017 Status: COMPLETED Source: [facility] 12:00 AM CLINIC OTHER CAMPUS REPOSITORY Patient:Lynn Nieto MRN: <[id number]> Height:5' 6(1.676 m) Weight:156 lb (70.761 kg) Outpatient Medications as of 08/31/17: ketorolac (TORADOL) 10 mg tablet cephALEXin (KEFLEX) 500 mg capsule tamsulosin ER (FLOMAX) 0.4 mg cp24 oxyCODONE-acetaminophen (PERCOCET) 5-325 mg tablet levonorgestrel (MIRENA) 20 mcg/24 hour (5 years) IUD Admission/Clinic Administered Medications as of 08/31/17: lactated ringers infusion fentaNYL 50 mcg/mL 50 mcg injection (SUBLIMAZE) HYDROmorphone 0.5 mg injection (DILAUDID) oxyCODONE IR 5 mg tab(s) (ROXICODONE) ondansetron (PF) 4 mg injection (ZOFRAN) meperidine (PF) 12.5 mg injection (DEMEROL) NaCl 0.9% iv infusion HYDROcodone 5 mg - acetaminophen 325 mg tablet (NORCO) morphine 1-2 mg injection ondansetron (PF) 4 mg injection (ZOFRAN) docusate sodium 100 mg cap(s) (COLACE) ketorolac 15 mg injection (TORADOL) polyethylene glycol 3350 17 g packet (MIRALAX, GLYCOLAX) tamsulosin ER 0.4 mg cap(s) (FLOMAX) Problem List: IUD (intrauterine device) in place [Z97.5] Kidney stone on right side [N20.0] Renal stone [N20.0] Right flank pain [R10.9] Allergies: Codeine Shellfish Containing Products Date Verified: 08/31/17 Lab Values Lab Value Units Date High Low POTA* 4.2 mEq/L 08/30/2017 5.1 3.5 NANO* 41.1 % 08/30/2017 44.9 34.1 Progress Notes (): Cary Dahl MD 08/30/2017 4:46 PM Cosign Needed Urology History and Physical Date: 08/30/2017 Patient Name: Lynn Nieto Date of : 1970 Admit Date: 08/30/2017 Age: [age] year old PCP: Scottie Mosher MD Narrative: The patient is a 47 year old female with history of right ESWL 08/21/17. She started having ++ right flank pain this Sunday and it persisted. She saw Dr. Marie yesterday with plans for intervention next week but given her persistent pain, was direct admitted. She has had no fever/chills. She had gross hematuria after the procedure but it has improved. 08/28 she went to the ED and had a CT showing possible right distal stones. PAST MEDICAL HISTORY Diagnosis Date - IUD (intrauterine device) in place 07/08/12 Mirena - Kidney stone PAST SURGICAL HISTORY Procedure Laterality Date - APPENDECTOMY HX - LAPAROSCOPIC APPENDECTOMY during first - TOOTH EXTRACTION x4 wisdom teeth Family History Problem Relation Age of Onset - No Family History No Family History female/colon/prostate/pancreatic CA Outpatient Prescriptions Marked as Taking for the 08/30/17 encounter (Hospital Encounter): ketorolac (TORADOL) 10 mg tablet Take 1 tablet by mouth every 6 hours as needed. Disp: 25 tablet Rfl: 0 cephALEXin (KEFLEX) 500 mg capsule Take 1 capsule by mouth twice daily for 7 days. Disp: 14 capsule Rfl: 0 tamsulosin ER (FLOMAX) 0.4 mg cp24 Take 1 capsule by mouth daily at bedtime for 7 days. Disp: 7 capsule Rfl: 0 oxyCODONE-acetaminophen (PERCOCET) 5-325 mg tablet Take 1 tablet by mouth every 6 hours as needed for Pain for up to 3 days. Disp: 12 tablet Rfl: 0 levonorgestrel (MIRENA) 20 mcg/24 hour (5 years) IUD Use as directed after in office placement. Disp: 1 Each Rfl: 0 Medications NaCl 0.9% iv infusion (not administered) HYDROcodone 5 mg - acetaminophen 325 mg tablet (NORCO) (not administered) morphine 1-2 mg injection (not administered) ondansetron (PF) 4 mg injection (ZOFRAN) (not administered) docusate sodium 100 mg cap(s) (COLACE) (not administered) ketorolac 15 mg injection (TORADOL) (not administered) polyethylene glycol 3350 17 g packet (MIRALAX, GLYCOLAX) (not administered) tamsulosin ER 0.4 mg cap(s) (FLOMAX) (not administered) ALLERGIES Allergen Reactions - Codeine Mental Status Change - Shellfish Containin* Hives Social History: Social History Marital status: Spouse name: Years of education: Number of children: Social History Main Topics Smoking status: Never Smoker Smokeless tobacco: Never Used Alcohol use: No Drug use: No Sexual activity: Yes Partners with: Male control/protection: IUD ROS: Constitutional: negative for chills and fevers Respiratory: negative for hemoptysis and shortness of breath Cardiovascular: negative for dyspnea and syncope Gastrointestinal: negative for jaundice, nausea and vomiting Genitourinary:negative for dysuria and hematuria, +flank pain Hematologic/lymphatic: negative for bleeding and lymphadenopathy Integumentary: no new bruises or lesions Musculoskeletal:negative for muscle weakness or pain Neurological: negative for coordination problems and seizures All other systems negative Physical Exam: 08/30/17 1546 08/30/17 1550 08/30/17 1551 BP: 111/68 Pulse: 70 Resp: Temp: 36.7 ?C (98.1 ?F) TempSrc: Oral SpO2: 100% Weight: 70.8 kg (156 lb) Height: 167.6 cm (5' 6) General: Alert, in no acute distress Head: Normocephalic, atraumatic Neck: supple, trachea is midline, no obvious masses Respiratory: normal effort, no audible wheezes Cardiovascular: regular pulse and no cyanosis Musculoskeletal: moving all extremities, normal tone Skin: warm and dry Psych: normal mood and affect, oriented Abdomen: soft, non distended, non tender, no organomegaly, no hernias Labs: CBC: Recent Labs 08/28/17 1345 WBC 7.78 HCT 40.6 MCV 96.4 RBC 4.21 PLT 248 BMP: Recent Labs 08/28/17 1345 NA 141 K 3.7 CO2 27 BUN 15 CA 9.3 Coagulation: No results found for: INR, APTT Lactic acid: No components found for: LACTA Radiology: CT abd/pelvis: IMPRESSION: 1. Multiple bilateral renal calculi. On the right, largest: 4 mm. On the left, largest: 7 mm. 2. ? Mild fullness of left central renal collecting system, similar prior exam. Left parapelvic cysts again noted, similar to prior exam. 3. ?In region of distal right ureter, to the right of L5-S1, a calcification is noted suggestive of distal right ureteral calculus: 5 x 4 mm (2:11). This is not observed previously. 4. ?New tiny hiatal hernia. 5. Tiny left inguinal hernia containing fat. Assessment and Plan: 47 year old female with bilateral renal stones, distal right ureteral calculi s/p ESWL PLAN: 1) NPO at midnight 2) toradol, pain control 3) miralax 4) flomax 5) strain all urine 6) add on for procedure tomorrow. Cary Dahl MD 08/30/2017 4:39 PM Cary Dahl MD 08/31/2017 7:47 AM Cosign Needed UROLOGY PROGRESS NOTE PATIENT NAME: Lynn Nieto DATE OF : 1970 ADMISSION DATE: 08/30/2017 3:46 PM Subjective No acute events overnight. Pain controlled - given scheduled toradol afebrile Objective VS: BP 107/59 Pulse 72 Temp 36.1 ?C (97 ?F) (Temporal Artery) Resp 18 Ht 167.6 cm (5' 6) Wt 70.8 kg (156 lb) SpO2 98% BMI 25.18 kg/m? I AND O - 24hr: Intake/Output Summary (Last 24 hours) at 08/31/17 0723 Last data filed at 08/30/17 1948 Gross per 24 hour Intake 360 ml Output 100 ml Net 260 ml Physical Exam: General: Neck: Resp: Abdomen: No acute distress Supple Normal effort Soft, non-tender, nondistended : No navas Labs and Imaging Studies LABS: BMP: Glucose (mg/dL) Date Value 08/30/2017 84 Potassium (mEq/L) Date Value 08/30/2017 4.2 Sodium (mEq/L) Date Value 08/30/2017 137 Chloride (mEq/L) Date Value 08/30/2017 107 CO2 (mEq/L) Date Value 08/30/2017 25 Creatinine (mg/dL) Date Value 08/30/2017 0.74 BUN (mg/dL) Date Value 08/30/2017 9 Anion Gap (no units) Date Value 08/30/2017 9 Calcium (mg/dL) Date Value 08/30/2017 8.8 CBC: Hemoglobin (g/dL) Date Value 08/28/2017 13.6 HGB (g/dL) Date Value 08/30/2017 13.6 Hematocrit (%) Date Value 08/30/2017 41.1 WBC (thou/cmm) Date Value 08/30/2017 7.90 Platelet Count (thou/cmm) Date Value 08/30/2017 250 Urinalysis: Specific [place], Ur Date Value Ref Range Status 08/30/2017 1.015 1.005 - 1.030 Final Glucose, Urine Date Value Ref Range Status 08/30/2017 NEGATIVE Negative mg/dL Final Bilirubin, Urine Date Value Ref Range Status 08/30/2017 NEGATIVE Negative Final Ketones, Urine Date Value Ref Range Status 08/30/2017 NEGATIVE Negative mg/dL Final Hemoglobin/Blood,Ur Date Value Ref Range Status 08/28/2017 Large (A) Negative Final Protein, Urine Date Value Ref Range Status 08/30/2017 NEGATIVE Negative mg/dL Final Urobilinogen, Urine Date Value Ref Range Status 08/30/2017 1.0 0.0 - 1.0 EU/dL Final Nitrites Date Value Ref Range Status 08/28/2017 Negative Negative Final Nitrites Urine Date Value Ref Range Status 08/30/2017 NEGATIVE Negative Final WBC, Urine Date Value Ref Range Status 08/30/2017 3.6 0.0 - 5.0 /hpf Final Urine Culture: No results found for: URCUL RADIOLOGY: Assessment and Plan ASSESSMENT: 47 year old female with bilateral renal stones, distal right ureteral calculi s/p ESWL PLAN: 1) continue NPO/ IVF 2) miralax 3) flomax 4) plan for OR this afternoon Cary Dahl MD Previous Version Chaplain Parker Chaplain 08/31/2017 11:03 AM Signed Spiritual Care Record ? Anointing/[place] PATIENT NAME: Lynn Nieto DATE: August 31, 2017 NOTE: Patient was blessed by Fr. Lopez from [facility] [place] on (date): 08/31/17. Signature: Chaplain Elena Question? Please contact the Spiritual Care Department for assistance. This is an electronically created document. IF PRINTED, PLEASE DO NOT REMOVE FROM THE CHART OR MODIFY PRINTED COPY. 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 yes Advance Directive: Health Literacy: 1. How often do you need to have someone help you when you read instructions, pamphlets, or other written material from your doctor or pharmacy? Never - 1 2. How confident are you filling out medical forms by yourself? Quite a bit - 2 If Patient scores > 3 on either question, the following interventions were put into place: Patient did not score > 3 FUNCTIONAL AND COGNITIVE/BEHAVIORAL PRIOR TO ADMISSION: Baseline Mental Status: Alert AND Oriented, Person, Place , Time and Situation Functional Status: Independent Does Patient Currently Receive Any Community Services or Home Care? None Equipment Prior to Admission: None Has the Patient Been in a Residential Facility in the Past 30 days? No SOCIAL: Living Arrangement: Home Lives With: Spouse Financial Resources: Employed: Primary Contact: Extended Emergency Contact Information Primary Emergency Contact: Kirby Nieto Address: [address] [place] [id number] [place] Mobile Relation: Spouse Supportive: Yes Other Important Patient Contacts: None Caregiver Assessment: Caregiver is ready, willing and able to meet the patient's needs as recommended by the inter-professional team? Yes Patient's transition needs and plan for meeting these needs: to be determined Does the patient have an acute stroke diagnosis, or has the patient had a stroke during this admission? No Medication Adherence: I am convinced of the importance of my prescription medication: Agree completely - 0 I worry that my prescription medication will do more harm than good to me Disagree completely - 0 I feel financially burdened by my [id number] expenses for my prescription medication: Disagree completely - 0 Patient is categorized as low risk < 2 Are you interested in bedside delivery of your medications? No Food Concerns: In the Last Month, Have You had Trouble Getting Food? No trouble getting food During the Last Month, Have You Worried Whether Your Food Would Run Out Before You Had Enough Money to Buy More? No Is the Patient Psychosocially Complex? No ASSESSMENT AND PLAN: Medical Needs: 2 or more chronic diseases Psychosocial Needs: None FREEDOM OF CHOICE EXPLAINED: N/A POTENTIAL TRANSITION PLANS Home Patient independent [employer] from home with spouse. +PCP. +Rx coverage. No DME. No AD - declines at this time. Anticipate d/c home when medically stable. SIGNATURE: Alisia Murphy RN PATIENT NAME: Lynn Nieto DATE: August 31, 2017 TIME: 1:29 PM PAGER/CONTACT #: [phone] Nicola Mtz MD 08/31/2017 2:54 PM Signed ANESTHESIOLOGY DAY OF SURGERY NOTE SERVICE DATE: 08/31/2017 SERVICE TIME: 2:51 PM : 1970 Procedure(s) (LRB): LASER CYSTOURETHROSCOPY W/ URETEROSCOPY AND/OR PYELOSCOPY W/ LITHOTRIPSY HOLMIUM (Right) Surgeon(s): Kevyn Priest Estimated body mass index is 25.18 kg/m? as calculated from the following: Height as of this encounter: 167.6 cm (5' 6). Weight as of this encounter: 70.8 kg (156 lb). Most recent hematocrit and potassium results: Hematocrit 41.1 08/30/2017 Potassium 4.2 08/30/2017 ANES DOS/PREOP NOTE: Vitals: 08/31/17 0000 08/31/17 0252 08/31/17 0759 08/31/17 1436 BP: 106/58 107/59 104/58 114/67 Pulse: 61 72 66 63 Resp: Temp: 36.3 ?C (97.3 ?F) 36.1 ?C (97 ?F) 36.2 ?C (97.2 ?F) 36.4 ?C (97.5 ?F) TempSrc: Temporal Artery Temporal Artery Temporal Artery Temporal Artery SpO2: 97% 98% 98% 98% Weight: Height: ACTIVE PROBLEM LIST IUD (Intrauterine Device) in Place Kidney Stone On Right Side Renal Stone Right Flank Pain PAST MEDICAL HISTORY Diagnosis Date - IUD (intrauterine device) in place 07/08/12 Mirena - Kidney stone PAST SURGICAL HISTORY Procedure Laterality Date - APPENDECTOMY HX - LAPAROSCOPIC APPENDECTOMY during first - TOOTH EXTRACTION x4 wisdom teeth FAMILY HISTORY Problem Relation Age of Onset - No Family History No Family History female/colon/prostate/pancreatic CA Social History: Social History Substance Use Topics - Smoking status: Never Smoker - Smokeless tobacco: Never Used - Alcohol use No No current facility-administered medications on file prior to encounter. Current Outpatient Prescriptions on File Prior to Encounter: ketorolac (TORADOL) 10 mg tablet Take 1 tablet by mouth every 6 hours as needed. cephALEXin (KEFLEX) 500 mg capsule Take 1 capsule by mouth twice daily for 7 days. tamsulosin ER (FLOMAX) 0.4 mg cp24 Take 1 capsule by mouth daily at bedtime for 7 days. oxyCODONE-acetaminophen (PERCOCET) 5-325 mg tablet Take 1 tablet by mouth every 6 hours as needed for Pain for up to 3 days. levonorgestrel (MIRENA) 20 mcg/24 hour (5 years) IUD Use as directed after in office placement. Current Facility-Administered Medications: [MAR Hold due to Transfer] NaCl 0.9% iv infusion 125 mL/hr INTRAVENOUS CONTINUOUS Cary (Res) [place] Last Rate: 125 mL/hr at 08/30/172328 125 mL/hr at 08/30/172328 [MAR Hold due to Transfer] HYDROcodone 5 mg - acetaminophen 325 mg tablet (NORCO) 1-2 tablet ORAL q 6 H PRN Cary (Res) [place] [MAR Hold due to Transfer] morphine 1-2 mg injection 1-2 mg INTRAVENOUS q 3 H PRN Cary (Res) [place] [MAR Hold due to Transfer] ondansetron (PF) 4 mg injection (ZOFRAN) 4 mg INTRAVENOUS q 6 H PRN Cary (Res) [place] [MAR Hold due to Transfer] docusate sodium 100 mg cap(s) (COLACE) 100 mg ORAL BID Cary (Res) [place] 100 mg at 08/30/17 2036 [MAR Hold due to Transfer] ketorolac 15 mg injection (TORADOL) 15 mg INTRAVENOUS q 6 H Cary (Res) [place] 15 mg at 08/31/17 1316 [MAR Hold due to Transfer] polyethylene glycol 3350 17 g packet (MIRALAX, GLYCOLAX) 17 g ORAL DAILY Cary (Res) [place] 17 g at 08/30/17 1724 [MAR Hold due to Transfer] tamsulosin ER 0.4 mg cap(s) (FLOMAX) 0.4 mg ORAL DAILY Cary (Res) [place] 0.4 mg at 08/30/17 1725 Allergies: ALLERGIES Allergen Reactions - Codeine Mental Status Change - Shellfish Containin* Hives DOS EXAM: Adequate NPO Status: Yes Anesthetic Risks, Benefits, Alternatives, Personnel and Consent Discussed: Yes Patient agrees to proceed: Yes Previous Anesthesia: PONV, no PONV during lithotripsy on 08/20/2017 Airway Assessment: MP 2; Neck ROM: Full ROM without neurologic symptoms; Airway Evaluation: No significant abnormalities Symptoms of Sleep Apnea: None Dentition: Teeth intact Additional Physical Exam: Lungs: Patient health status unchanged since recent history and physical. See history and physical for exam findings. Cardiac: Patient health status unchanged since recent history and physical. See history and physical for exam findings. Additional Pertinent Findings: N/A Blood Products: Not anticipated for this procedure Anesthetic Plan: General Anesthetic Monitoring: Standard ASA Monitors Pain Management Plan: Parenteral or Oral ASA Class: 2 Other Medical Problems: Kidney stones Chronic Beta Safia medication administered within 24 hours: N/A I have interviewed and examined the patient. I have reviewed the medical record and/or the pre-anesthesia evaluation, pertinent labs, and test results. Significant changes in the patient's condition since the History and Physical, not otherwise documented in primary service progress notes: No This contains updated information obtained within 48 hours of Surgery/Procedure. SIGNATURE: Nicola Mtz MD PATIENT NAME: Lynn Nieto DATE: August 31, 2017 TIME: 2:51 PM CSN: [id number] Progress Notes ([facility]): Anmol Marie Jr, MD 08/29/2017 5:01 PM Signed NEW PATIENT HISTORY AND PHYSICAL EXAM PATIENT INFO: Lynn Nieto 47 year old REFERRING PROVIDER: SCOTTIE MOSHER PCP: Scottie Mosher MD HPI Lynn Nieto is a 47 year old female sp r eswl. Distal fragment 4-5mm. significatn pain. No fever. Review of Systems Constitutional: Negative. Respiratory: Negative. Cardiovascular: Negative. Gastrointestinal: Negative. Genitourinary: Negative. Skin: Negative. Neurological: Negative. Psychiatric/Behavioral: Negative. LAB: Creatinine Date Value Ref Range Status 08/28/2017 0.86 0.58 - 0.96 mg/dL Final No results found for: PSA Glucose, Urine (mg/dL) Date Value 08/28/2017 Negative Bilirubin, Urine (no units) Date Value 08/28/2017 Negative Ketones, Urine (no units) Date Value 08/28/2017 Negative Specific [place], Ur (no units) Date Value 08/28/2017 1.020 Hemoglobin/Blood,Ur ( ) Date Value 08/28/2017 Large pH, Urine (no units) Date Value 08/28/2017 6.0 Protein, Urine (mg/dL) Date Value 08/28/2017 Trace Nitrites (no units) Date Value 08/28/2017 Negative WBC, Urine (/HPF) Date Value 08/28/2017 5-10 MEDICATIONS: ketorolac (TORADOL) 10 mg tablet Take 1 tablet by mouth every 6 hours as needed. cephALEXin (KEFLEX) 500 mg capsule Take 1 capsule by mouth twice daily for 7 days. tamsulosin ER (FLOMAX) 0.4 mg cp24 Take 1 capsule by mouth daily at bedtime for 7 days. oxyCODONE-acetaminophen (PERCOCET) 5-325 mg tablet Take 1 tablet by mouth every 6 hours as needed for Pain for up to 3 days. levonorgestrel (MIRENA) 20 mcg/24 hour (5 years) IUD Use as directed after in office placement. HISTORIES PAST MEDICAL HISTORY Diagnosis Date - IUD (intrauterine device) in place 07/08/12 Mirena - Kidney stone FAMILY HISTORY Problem Relation Age of Onset - No Family History No Family History female/colon/prostate/pancreatic CA SOCIAL HISTORY Social History Substance Use Topics - Smoking status: Never Smoker - Smokeless tobacco: Never Used - Alcohol use No PHYSICAL EXAMINATION Ht 167.6 cm (5' 6) Wt 70.8 kg (156 lb) BMI 25.18 kg/m? General appearance: Well appearing, alert, in no acute distress, well-hydrated, well nourished Skin: Skin color, texture, turgor normal, no suspicious rashes or lesions Respiratory:+ effort Cardiovascular: Not examined GI: Normal abdominal exam, Abdomen soft, non-tender. No masses, organomegaly Musculoskeletal: normal ROM Neuro: No gross neurologic defecits Genitourinary: not examined ASSESSMENT: (N20.0) Kidney stone on right side (primary encounter diagnosis) PLAN: Cystoscopy, pyelogram, right laser lithotripsy, right ureteral stent placement All r/b/a of surgery discussed, infection, bleeding, damage to nearby structures, repeat surgery, stent pain/symptoms, , heart attack, stroke, deep vein thrombosis, pulmonary embolus. Patient verbalized understanding and agrees to proceed. Anmol Marie Jr, MD PROGRESS Observed: 08/29/2017 Status: COMPLETED Source: [place] 4:36 PM [facility]IN[facility] OTHER CAMPUS REPOSITORY HNO ID: [id number] Author: Anmol Marie Jr. Service: (none) Author Type: Physician Type: Progress Notes Filed: 08/29/2017 5:01 PM Note Text: NEW PATIENT HISTORY AND PHYSICAL EXAM PATIENT INFO: Lynn Nieto 47 year old REFERRING PROVIDER: SCOTTIE MOSHER PCP: Scottie Mosher MD HPI Lynn Nieto is a 47 year old female sp r eswl. Distal fragment 4-5mm. significatn pain. No fever. Review of Systems Constitutional: Negative. Respiratory: Negative. Cardiovascular: Negative. Gastrointestinal: Negative. Genitourinary: Negative. Skin: Negative. Neurological: Negative. Psychiatric/Behavioral: Negative. LAB: Creatinine Date Value Ref Range Status 08/28/2017 0.86 0.58 - 0.96 mg/dL Final No results found for: PSA Glucose, Urine (mg/dL) Date Value 08/28/2017 Negative Bilirubin, Urine (no units) Date Value 08/28/2017 Negative Ketones, Urine (no units) Date Value 08/28/2017 Negative Specific [place], Ur (no units) Date Value 08/28/2017 1.020 Hemoglobin/Blood,Ur ( ) Date Value 08/28/2017 Large pH, Urine (no units) Date Value 08/28/2017 6.0 Protein, Urine (mg/dL) Date Value 08/28/2017 Trace Nitrites (no units) Date Value 08/28/2017 Negative WBC, Urine (/HPF) Date Value 08/28/2017 5-10 MEDICATIONS: ketorolac (TORADOL) 10 mg tablet Take 1 tablet by mouth every 6 hours as needed. cephALEXin (KEFLEX) 500 mg capsule Take 1 capsule by mouth twice daily for 7 days. tamsulosin ER (FLOMAX) 0.4 mg cp24 Take 1 capsule by mouth daily at bedtime for 7 days. oxyCODONE-acetaminophen (PERCOCET) 5-325 mg tablet Take 1 tablet by mouth every 6 hours as needed for Pain for up to 3 days. levonorgestrel (MIRENA) 20 mcg/24 hour (5 years) IUD Use as directed after in office placement. HISTORIES PAST MEDICAL HISTORY Diagnosis Date - IUD (intrauterine device) in place 07/08/12 Mirena - Kidney stone FAMILY HISTORY Problem Relation Age of Onset - No Family History No Family History female/colon/prostate/pancreatic CA SOCIAL HISTORY Social History Substance Use Topics - Smoking status: Never Smoker - Smokeless tobacco: Never Used - Alcohol use No PHYSICAL EXAMINATION Ht 167.6 cm (5' 6) Wt 70.8 kg (156 lb) BMI 25.18 kg/m? General appearance: Well appearing, alert, in no acute distress, well-hydrated, well nourished Skin: Skin color, texture, turgor normal, no suspicious rashes or lesions Respiratory:+ effort Cardiovascular: Not examined GI: Normal abdominal exam, Abdomen soft, non-tender. No masses, organomegaly Musculoskeletal: normal ROM Neuro: No gross neurologic defecits Genitourinary: not examined ASSESSMENT: (N20.0) Kidney stone on right side (primary encounter diagnosis) PLAN: Cystoscopy, pyelogram, right laser lithotripsy, right ureteral stent placement All r/b/a of surgery discussed, infection, bleeding, damage to nearby structures, repeat surgery, stent pain/symptoms, , heart attack, stroke, deep vein thrombosis, pulmonary embolus. Patient verbalized understanding and agrees to proceed. Anmol Marie Jr, MD CNOV Observed: 08/29/2017 Status: COMPLETED Source: [place] 3:45 PM [facility] OTHER CAMPUS REPOSITORY Office Visit (AKURFL) LYNN NIETO ([id number]) 1970 F Date Time Provider Department 08/29/17 3:45 PM ANMOL MARIE JR AKMARGARITO During your visit today, we recorded the following information about you: Weight Height 70.8 kg 1.676 m Anmol Marie Jr, MD 08/29/2017 5:01 PM Signed NEW PATIENT HISTORY AND PHYSICAL EXAM PATIENT INFO: Lynn Lamjoaquin 47 year old REFERRING PROVIDER: SCOTTIE MOSHER PCP: Scottie Mosher MD HPI Lynn Nieto is a 47 year old female sp r eswl. Distal fragment 4-5mm. significatn pain. No fever. Review of Systems Constitutional: Negative. Respiratory: Negative. Cardiovascular: Negative. Gastrointestinal: Negative. Genitourinary: Negative. Skin: Negative. Neurological: Negative. Psychiatric/Behavioral: Negative. LAB: Creatinine Date Value Ref Range Status 08/28/2017 0.86 0.58 - 0.96 mg/dL Final No results found for: PSA Glucose, Urine (mg/dL) Date Value 08/28/2017 Negative Bilirubin, Urine (no units) Date Value 08/28/2017 Negative Ketones, Urine (no units) Date Value 08/28/2017 Negative Specific [place], Ur (no units) Date Value 08/28/2017 1.020 Hemoglobin/Blood,Ur ( ) Date Value 08/28/2017 Large pH, Urine (no units) Date Value 08/28/2017 6.0 Protein, Urine (mg/dL) Date Value 08/28/2017 Trace Nitrites (no units) Date Value 08/28/2017 Negative WBC, Urine (/HPF) Date Value 08/28/2017 5-10 MEDICATIONS: ketorolac (TORADOL) 10 mg tablet Take 1 tablet by mouth every 6 hours as needed. cephALEXin (KEFLEX) 500 mg capsule Take 1 capsule by mouth twice daily for 7 days. tamsulosin ER (FLOMAX) 0.4 mg cp24 Take 1 capsule by mouth daily at bedtime for 7 days. oxyCODONE-acetaminophen (PERCOCET) 5-325 mg tablet Take 1 tablet by mouth every 6 hours as needed for Pain for up to 3 days. levonorgestrel (MIRENA) 20 mcg/24 hour (5 years) IUD Use as directed after in office placement. HISTORIES PAST MEDICAL HISTORY Diagnosis Date - IUD (intrauterine device) in place 07/08/12 Mirena - Kidney stone FAMILY HISTORY Problem Relation Age of Onset - No Family History No Family History female/colon/prostate/pancreatic CA SOCIAL HISTORY Social History Substance Use Topics - Smoking status: Never Smoker - Smokeless tobacco: Never Used - Alcohol use No PHYSICAL EXAMINATION Ht 167.6 cm (5' 6) Wt 70.8 kg (156 lb) BMI 25.18 kg/m? General appearance: Well appearing, alert, in no acute distress, well-hydrated, well nourished Skin: Skin color, texture, turgor normal, no suspicious rashes or lesions Respiratory:+ effort Cardiovascular: Not examined GI: Normal abdominal exam, Abdomen soft, non-tender. No masses, organomegaly Musculoskeletal: normal ROM Neuro: No gross neurologic defecits Genitourinary: not examined ASSESSMENT: (N20.0) Kidney stone on right side (primary encounter diagnosis) PLAN: Cystoscopy, pyelogram, right laser lithotripsy, right ureteral stent placement All r/b/a of surgery discussed, infection, bleeding, damage to nearby structures, repeat surgery, stent pain/symptoms, , heart attack, stroke, deep vein thrombosis, pulmonary embolus. Patient verbalized understanding and agrees to proceed. Anmol Marie Jr, MD Referring Provider: SCOTTIE MOSHER [[id number]] Allergies As of Date: 08/29/2017 Noted Allergy Reaction CODEINE 11/21/2011 1 - Mental Status Change SHELLFISH CONTAINING PRODUCTS 08/21/2017 4 - Hives Date Reviewed: 08/29/2017 Reviewed by: Anmol Marie Jr. - Fully Assessed Reason for Visit: Kidney Stones [52107] Cmt: right sided flank pain Primary Visit Diagnosis:Kidney stone on right side [N20.0] Order(s): DIP B/O [[id number]] Order #: [id number] ketorolac (TORADOL) 10 mg tabletTake 1 tablet by mouth every 6 hours as needed.Disp: 25 tabletRfl: 0 Prescriptions as of 08/29/2017 Sig: KETOROLAC 10 MG TABLET Take 1 tablet by mouth every * CEPHALEXIN 500 MG CAPSULE Take 1 capsule by mouth twice* TAMSULOSIN 0.4 MG CAPSULE Take 1 capsule by mouth daily* OXYCODONE-ACETAMINOPHEN 5 MG-* Take 1 tablet by mouth every * LEVONORGESTREL 20 MCG/24 HR (* Use as directed after in offi* Problem List As Of Date 08/29/2017 Noted Resolved Pre-procedural examination [Z01.818] INVALID FOR*07/08/2012 IUD (intrauterine device) in place [Z97.5] More... Kidney stone on right side [N20.0] INVALID FOR* Prescriptions ordered this encounter Disp Refills Start End KETOROLAC 10 MG TABLET 25 t* 0 08/29/2017 09/28/2017 Route: ORAL Sig: Take 1 tablet by mouth every 6 hours as needed. Disposition: Return in about 1 week (around 09/05/2017). Follow-up and Disposition History Recorded Encounter Status:Closed by ANMOL MARIE MD on 08/29/17 ED NOTE Observed: 08/28/2017 Status: COMPLETED Source: [place] 4:08 PM [facility] REPOSITORY HNO ID: [id number] Author: Radha (Rn) ALMA DELIA Villasenor Service: (none) Author Type: Registered Nurse Type: ED Notes Filed: 08/28/2017 4:09 PM Note Text: Discharge instructions reviewed, verbalized understanding. Patient discharged with all belongings. CT FLANK WO IVCON Observed: 08/28/2017 Status: F Source: [place] 2:43 PM [facility] REPOSITORY * * *Final Report* * * DATE OF EXAM: Aug 28 2017 2:43PM [facility] 0529 - CT FLANK WO IVCON / PROCEDURE REASON: Flank pain, stone disease suspected * * * * Physician Interpretation * * * * EXAMINATION: CT ABDOMEN AND PELVIS WITHOUT IV CONTRAST (Renal stone protocol): 08-28-17 CLINICAL HISTORY: 37-year-old female with flank pain. Hematuria. History given of lithotripsy last week. TECHNIQUE: Non-contrast imaging of the abdomen and pelvis was performed through the urinary tract. Study performed without intravenous or oral contrast to evaluate for urinary tract calculus. MQ: [id number] Contrast: IV contrast: None Oral contrast: None CT Radiation dose: Integrated dose-length product (DLP) for this visit = 505 mGy*cm. CT Dose Reduction Employed: mAs-kVp adjusted based on patient size-age COMPARISON: Abdomen: 08-21-17 CT abdomen/pelvis without IV contrast: 08-20-17 RESULTS: Limitations: None. Lower thorax: Mild atelectasis within lung bases. No pleural fluid. Liver: Unremarkable. Biliary: Gallbladder unremarkable. No biliary ductal dilatation. Pancreas: Unremarkable. No pancreatic ductal dilatation. Spleen: Unremarkable. Spleen not enlarged. Adrenal glands: Unremarkable. Kidneys: Approximately four right renal calculi are noted within lower right kidney. Largest: 4 mm. Approximately six left renal calculi are noted. Largest within lateral mid left kidney: 7 x 3 mm. Mild fullness of left central renal collecting system, similar prior exam. Left parapelvic cysts again noted, similar to prior exam. No perinephric stranding or fluid. Distal ureters difficult to trace. No ureteral dilatation. In region of distal right ureter, to the right L5-S1, a calcification is noted suggestive of distal right ureteral calculus: 5 x 4 mm (2:11). This is not observed previously. Phleboliths within both sides of pelvis again noted, which appears separate from horse of distal ureters. Vasculature: Vascular calcifications noted. No aneurysm of abdominal aorta. Lymph nodes: No enlarged lymph nodes noted on this unenhanced exam. Pelvis: Bladder unremarkable and without wall thickening or calculi. IUD again noted within central uterine body. Otherwise, uterus and adnexa unremarkable. GI tract: New tiny hiatal hernia. Bowel and appendix unremarkable. No significant bowel dilatation or inflammatory change. Mesentery/Peritoneum: No free fluid or free air. No extraluminal fluid or gas collections. Bones/Soft Tissues: Degenerative change of spine, without focal skeletal abnormality. Tiny left inguinal hernia containing fat again noted. IMPRESSION: 1. Multiple bilateral renal calculi. On the right, largest: 4 mm. On the left, largest: 7 mm. 2. Mild fullness of left central renal collecting system, similar prior exam. Left parapelvic cysts again noted, similar to prior exam. 3. In region of distal right ureter, to the right of L5-S1, a calcification is noted suggestive of distal right ureteral calculus: 5 x 4 mm (2:11). This is not observed previously. 4. New tiny hiatal hernia. 5. Tiny left inguinal hernia containing fat. [facility] Transcribe Date/Time: Aug 28 2017 2:55P Dictated by : CHELSEA NEWMAN MD This examination was interpreted and the report reviewed and electronically signed by: CHELSEA NEWMAN MD on Aug 28 2017 3:13PM EST [id number] ED NOTE Observed: 08/28/2017 Status: COMPLETED Source: [place] 2:38 PM [facility]IN[facility] OTHER CAMPUS REPOSITORY HNO ID: [id number] Author: Katy (Rn) ALMA DELIA Barnes Service: (none) Author Type: Registered Nurse Type: ED Notes Filed: 08/28/2017 2:38 PM Note Text: Patient transported to tn with Tech. CBC AND DIFFERENTIAL Collected: 08/28/2017 Status: F Source: [place] 1:45 PM CLINIC OTHER CAMPUS REPOSITORY TYPE CODE TESTS RESULT OUT OF REFERENCE UNITS RANGE LAB WBC 3.70-11.00 k/uL WBC 7.78 LAB RBC 3.90-5.20 m/uL RBC 4.21 LAB HGB 11.5-15.5 g/dL Hemoglobin 13.6 LAB HCT 36.0-46.0 % Hematocrit 40.6 LAB MCV 80.0-100.0 fL MCV 96.4 LAB MCH 26.0-34.0 pG MCH 32.3 LAB MCHC 30.5-36.0 g/dL MCHC 33.5 LAB RDWCV 11.5-15.0 % RDW-CV 13.0 LAB PLTCT 150-400 k/uL Platelet Count 248 LAB MPV 9.0-12.7 fL MPV 11.1 LAB ANEUT % Neut% 70.9 LAB AANEUT 1.45-7.50 k/uL Abs Neut 5.52 LAB ALYMP % Lymph% 22.1 LAB AALYMP 1.00-4.00 k/uL Abs Lymph 1.72 LAB AMONO % Barren% 5.8 LAB AAMONO <0.87 k/uL Abs Barren 0.45 LAB AEOS % Eosin% 0.8 LAB AAEOS <0.46 k/uL Abs Eosin 0.06 LAB ABASO % Baso% 0.4 LAB AABASO <0.11 k/uL Abs Baso 0.03 Performed By: #### CBCDIF, CMP #### [facility] [address] [place] [address] COMP METABOLIC PANEL Collected: 08/28/2017 Status: F Source: [place] 1:45 PM [facility] OTHER CAMPUS REPOSITORY TYPE CODE TESTS RESULT OUT OF REFERENCE UNITS RANGE LAB TP 6.3-8.0 g/dL Protein, Total 7.2 LAB ALB 3.9-4.9 g/dL Albumin 4.3 LAB CA 8.5-10.2 mg/dL Calcium, Total 9.3 LAB TBIL 0.2-1.3 mg/dL Bilirubin, Total 0.6 LAB ALKP 32-117 U/L Alkaline Phosphatase 45 LAB AST 13-35 U/L Low AST 12 LAB GLU 74-99 mg/dL Glucose 93 Result Comment: The [place] [employer] (ADA) provides guidance for cutoff values for fasting glucose and random glucose. The ADA defines fasting as no caloric intake for at least 8 hours. Fas ting plasma glucose results between 100 to 125 mg/dL indicate increased risk for diabetes (prediabetes). Fasting plasma glucose results greater than or equal to 126 mg/dL meet the criteria for diagnosis of diabetes. In the absence of unequivocal hyperglycemia, results should be confirmed by repeat testing. In a patient with classic symptoms of hyperglycemia or hyperglycemic crisis, random plasma glucose results greater than or equal to 200 mg/dL meet the criteria for diagnosis of diabetes. Reference: Standards of Medical Care in Diabetes 2016, [place] [employer]. Diabetes Care. 2016.39(Suppl 1). LAB BUN 7-21 mg/dL BUN 15 LAB CRET 0.58-0.96 mg/dL Creatinine 0.86 LAB NA 136-144 mmol/L Sodium 141 LAB K 3.7-5.1 mmol/L Potassium 3.7 LAB CL 97-105 mmol/L Chloride 104 LAB CO2 22-30 mmol/L CO2 27 LAB AGAP 9-18 mmol/L Anion Gap 10 LAB ALT 7-38 U/L ALT 14 LAB GFRAA eGFR- Amer. >60 LAB GFRNAA . eGFR-All Other Races >60 Result Comment: eGFR (Estimated GFR) Units of measure: mL/min/1.73 meters squared eGFR is derived from the reexpressed MDRD Study equation using the following parameters: serum creatinine, age, gender and race. The creatinine assay has been calibrated to be traceable to IDMS. An eGFR <60 mL/min/1.73m2 for >3 months is consistent with chronic kidney disease. Refer to KDOQI guidelines for clinical interpretation. In patients with unstable renal function, e.g. those with acute kidney injury, the eGFR may not accurately reflect actual GFR. Performed By: #### CBCDIF, CMP #### [facility] [address] [place] [address] HCG QUAL, URINE Collected: 08/28/2017 Status: F Source: [place] 1:45 PM [facility] OTHER CAMPUS REPOSITORY TYPE CODE TESTS RESULT OUT OF REFERENCE UNITS RANGE LAB UHCG Negative HCG Qual, Negative Urine Result Comment: False positives and false negatives are rare but have been described. Clinical correlation of the findings is recommended. Performed By: #### UHCG #### [facility] [address] [place] [address] URINALYSIS Collected: 08/28/2017 Status: F Source: [place] 1:45 PM [facility] OTHER CAMPUS REPOSITORY TYPE CODE TESTS RESULT OUT OF RANGE REFERENCE UNITS LAB UCOL Yellow Color Yellow LAB [facility] Clear Clarity Abnormal Slightly Hazy Alert LAB UGLUC Negative mg/dL Glucose, Urine Negative LAB UBIL Negative Bilirubin, Urine Negative LAB UKET Negative Ketones, Urine Negative LAB USPG 1.001-1.029 Specific [place], Ur 1.020 LAB UHGB Negative Abnormal Hemoglobin/Blood, Large Alert Ur LAB UPH 5.0-8.0 pH 6.0 LAB UPROT Negative mg/dL Protein, Abnormal Urine Trace Alert LAB UUROB 0.2-1.0 Urobilinogen 0.2 LAB UNITR Negative Nitrites Negative LAB ULKEST Negative Leukest Abnormal Trace Alert Performed By: #### UA, UAMIC #### [facility] [address] [place] [address] URINE MICROSCOPIC Collected: 08/28/2017 Status: F Source: [place] (FOR LAB USE ONLY) 1:45 PM [facility] OTHER CAMPUS REPOSITORY TYPE CODE TESTS RESULT OUT OF RANGE REFERENCE UNITS LAB UWBC 0-5 /HPF Abnormal Alert WBC 5-10 LAB URBC 0-3 /HPF Abnormal Alert RBC 10-30 LAB UCAST 0 /LPF Cast SEE COMMENT Result Comment: 0 LAB UBACT 0 /HPF Abnormal Bacteria Alert Occasional LAB UEPI /HPF SEE Epithelial Cells COMMENT Result Comment: 5-10 Squamous Epithelial Cells Performed By: #### UA, UAMIC #### [facility] [address] [place] [address] Observed: 08/28/2017 Status: F Source: [place] URINE CULTURE 1:45 PM [facility] OTHER [place] REPOSITORY Sp. Request/Comment: - Specimen received in preservative Culture Result - 10,000 - <50,000 CFU/ml Three or more organisms, no one type predominant, suggesting contamination during collection. Recollect if clinically indicated. Performed By: #### URCUL #### [facility] [address] [facility] [phone] [facility] [address] [place] [address] ED PROV NOTE Observed: 08/28/2017 Status: COMPLETED Source: [place] 1:02 PM [facility]IN[facility] OTHER CAMPUS REPOSITORY HNO ID: [id number] Author: Betzaida Palacio) Renate Service: (none) Author Type: Physician Corporation Secretary Type: ED Provider Notes Filed: 08/28/2017 4:01 PM Note Text: ED Provider Note Patient Name: Lynn Nieto SERVICE DATE: 08/28/17 History Patient presents with: Flank Pain: R side Groin Pain Nausea 47-year-old female presents emergency department with right mid abdominal pain and right flank pain radiating down to the right following which started a pressing one hour prior to arrival. Patient states she had lithotripsy performed 1 week ago for right-sided kidney stones. She states she was doing well up until today. She has been urinating normally. There has been no fevers or chills. She denies nausea or vomiting. She states pain is colicky and sharp and stabbing. She is unable to pinpoint any aggravating or alleviating factors. She states urine is normal in color. PAST MEDICAL HISTORY Diagnosis Date - IUD (intrauterine device) in place 07/08/12 Mirena - Kidney stone PAST SURGICAL HISTORY Procedure Laterality Date - APPENDECTOMY HX - LAPAROSCOPIC APPENDECTOMY during first - TOOTH EXTRACTION x4 wisdom teeth FAMILY HISTORY Problem Relation Age of Onset - No Family History No Family History female/colon/prostate/pancreatic CA Social History Social History Main Topics - Smoking status: Never Smoker - Smokeless tobacco: Never Used - Alcohol use No - Drug use: No - Sexual activity: Yes Partners: Male control/ protection: IUD ALLERGIES Allergen Reactions - Codeine Mental Status Change - Shellfish Containin* Hives Review of Systems Constitutional: Negative. Respiratory: Negative. Negative for apnea, cough, choking, chest tightness, shortness of breath, wheezing and stridor. Cardiovascular: Negative. Negative for chest pain, palpitations and leg swelling. Gastrointestinal: Positive for abdominal pain. Negative for nausea and vomiting. Genitourinary: Positive for flank pain. Skin: Negative. All other systems reviewed and are negative. Physical Exam BP 121/62 Pulse 59 Resp 16 Ht 5' 6 (1.68m) Wt 156 lb (70.8kg) SpO2 98% BMI 25.19 kg/(m2). Physical Exam Constitutional: Vital signs are normal. She appears well-developed and well-nourished. She is cooperative. Non-toxic appearance. She does not have a sickly appearance. She does not appear ill. Cardiovascular: Normal rate, regular rhythm and normal heart sounds. Exam reveals no gallop and no friction rub. No murmur heard. Pulmonary/Chest: Effort normal and breath sounds normal. No respiratory distress. She has no wheezes. She has no rales. She exhibits no tenderness. Abdominal: Soft. Normal appearance and bowel sounds are normal. There is no hepatosplenomegaly. There is tenderness. There is CVA tenderness. There is no rigidity, no rebound, no guarding, no tenderness at McBurney's point and negative Cannon's sign. No hernia. Right-sided CVA tenderness appreciated no left CVA tenderness present. Skin: Skin is warm and dry. Capillary refill takes less than 2 seconds. Nursing note and vitals reviewed. Diagnostic Testing ED Labs Ordered and Reviewed - No data to display Results for orders placed or performed during the hospital encounter of 08/28/17 COMP METABOLIC PANEL Result Value Ref Range Protein, Total 7.2 6.3 - 8.0 g/dL Albumin 4.3 3.9 - 4.9 g/dL Calcium 9.3 8.5 - 10.2 mg/dL Bilirubin, Total 0.6 0.2 - 1.3 mg/dL Alkaline Phosphatase 45 32 - 117 U/L AST 12 (L) 13 - 35 U/L Glucose 93 74 - 99 mg/dL BUN 15 7 - 21 mg/dL Creatinine 0.86 0.58 - 0.96 mg/dL Sodium 141 136 - 144 mmol/L Potassium 3.7 3.7 - 5.1 mmol/L Chloride 104 97 - 105 mmol/L CO2 27 22 - 30 mmol/L Anion Gap 10 9 - 18 mmol/L ALT 14 7 - 38 U/L eGFR- >60 eGFR-All Other Races >60 . CBC + DIFF Result Value Ref Range WBC 7.78 3.70 - 11.00 k/uL RBC 4.21 3.90 - 5.20 m/uL Hemoglobin 13.6 11.5 - 15.5 g/dL Hematocrit 40.6 36.0 - 46.0 % MCV 96.4 80.0 - 100.0 fL MCH 32.3 26.0 - 34.0 pG MCHC 33.5 30.5 - 36.0 g/dL RDW-CV 13.0 11.5 - 15.0 % Platelet Count 248 150 - 400 k/uL MPV 11.1 9.0 - 12.7 fL Neut% 70.9 % Abs Neut (ANC) 5.52 1.45 - 7.50 k/uL Lymph% 22.1 % Abs Lymph 1.72 1.00 - 4.00 k/uL Barren% 5.8 % Abs Barren 0.45 <0.87 k/uL Eosin% 0.8 % Abs Eosin 0.06 <0.46 k/uL Baso% 0.4 % Abs Baso 0.03 <0.11 k/uL URINALYSIS Result Value Ref Range Color Yellow Yellow Appearance (U) Slightly Hazy (A) Clear Glucose, Urine Negative Negative mg/dL Bilirubin, Urine Negative Negative Ketones, Urine Negative Negative Specific [place], Ur 1.020 1.001 - 1.029 Hemoglobin/Blood,Ur Large (A) Negative pH, Urine 6.0 5.0 - 8.0 Protein, Urine Trace (A) Negative mg/dL Urobilinogen 0.2 0.2 - 1.0 Nitrites Negative Negative Leukest Trace (A) Negative HCG QUAL UR Result Value Ref Range HCG Qualitative, Urine Negative Negative URINE MICROSCOPIC Result Value Ref Range WBC, Urine 5-10 (A) 0 - 5 /HPF RBC, Urine 10-30 (A) 0 - 3 /HPF Cast SEE COMMENT 0 /LPF Bacteria Occasional (A) 0 /HPF Epithelial Cells SEE COMMENT /HPF CT FLANK WO IVCON Final Result IMPRESSION: 1. Multiple bilateral renal calculi. On the right, largest: 4 mm. On the left, largest: 7 mm. 2. Mild fullness of left central renal collecting system, similar prior exam. Left parapelvic cysts again noted, similar to prior exam. 3. In region of distal right ureter, to the right of L5- S1, a calcification is noted suggestive of distal right ureteral calculus: 5 x 4 mm (2:11). This is not observed previously. 4. New tiny hiatal hernia. 5. Tiny left inguinal hernia containing fat. House Fellow: LYNDA Transcribe Date/Time: Aug 28 2017 2:55P Dictated by : CHELSEA NEWMAN MD This examination was interpreted and the report reviewed and electronically signed by: CHELSEA NEWMAN MD on Aug 28 2017 3:13PM EST Procedures Medical Decision Making MDM An IV was started of normal saline and patient was given 1 L wide open. She was given Toradol 15 mg IV and noted complete resolution of the pain following the IV Toradol. CBC shows a normal white blood cell count of 7.7 and a hemoglobin is normal at 13.6 hematocrit normal 40.6 platelet count normal at 248 with a normal differential. CMP is within normal limits BUN is 15 and creatinine 0.86 with a normal sodium at 141 and normal potassium at 3.7. Urinalysis shows elevated white blood cells at 5-10 and 10-30 red blood cells with occasional bacteria. This appears consistent with urinary tract infection. Urine culture is pending. She was given Keflex by mouth to cover for possible UTI and culture results. Urine hCG is negative. CT flank without IV contrast was ordered and shows bilateral renal calculi with mild fullness of the left central collecting system which is similar to his prior exam. There is a distal right ureteral calculus measuring 5 x 4 mm. There is also a new tiny hiatal hernia and a tiny left inguinal hernia containing fat. Due to patient's recent lithotripsy, I contacted her urologist Dr. Marie and spoke with him regarding her results today. At this point I see no indication for admission. She is afebrile, with normal vital signs, normal white blood cell count and normal BUN and creatinine. We'll cover for UTI with Keflex pending culture results and Dr. Marie is agreeable to this plan and will follow her in the office this week for follow-up appointment. She was also prescribed Flomax and Percocet for pain. She remains pain-free following the Toradol and did not require any additional pain medication throughout her stay in the emergency department. I discussed possible admission but patient is agreeable to go home and will return if symptoms worsen in anyway or new symptoms develop. We discussed in detail signs and symptoms of pyelonephritis or worsening infection and she assures me she will return if any of these do occur. ED Course / Clinical Impression Clinical Impressions as of Aug 28 1554 Right ureteral stone Acute UTI Plan The patient was DISCHARGED: Counseled patient regarding lab results AND radiology results AND suspected diagnosis AND need for follow- up. Discharged home with verbal and written instructions. They were instructed to return as needed for persistent or worsening symptoms or any new concerns. Given a prescription for the following medication(s): keflex, percocet, flomax Condition at time of disposition: stable SIGNATURE: AIDEE Bell (Pa) 08/28/17 1601 ED NOTE Observed: 08/28/2017 Status: COMPLETED Source: [place] 12:45 PM CLINIC OTHER CAMPUS REPOSITORY [facility] ID: [id number] Author: Manuel (Rn) ALMA DELIA Hardin Service: Nursing Author Type: Registered Nurse Type: ED Notes Filed: 08/28/2017 12:49 PM Note Text: Pt presents to ED for c/o R flank pain. Started today at work. Lithotripsy performed 08/[address] Joshi on R side for kidney stones. CNDS Observed: 08/22/2017 Status: COMPLETED Source: [place] 2:37 PM [facility] OTHER [place] REPOSITORY HNO ID: [id number] Author: Scottie Mosher Service: Family Practice Author Type: Physician Type: Discharge Summaries Filed: 08/26/2017 8:21 AM Note Text: DISCHARGE SUMMARY PATIENT NAME: Lynn Nieto Admission Information Admission Information ADMIT DATE: 08/20/2017 DISCHARGE DATE: 08/22/2017 MY DOCTORS AND MEDICAL TEAM: My Main Hospital Doctor: Scottie Mosher Primary Care Provider: Scottie Mosher My Medical Team Members: Treatment Team: Attending Provider: Scottie Mosher Consulting: Anmol Marie Jr. MY CONDITION AT DISCHARGE: Stable REASON I WAS IN THE HOSPITAL: kidney stone SUMMARY OF WHAT HAPPENED WHILE I WAS IN THE HOSPITAL: You presented to the ER with a 9 mm kidney stone. You needed ESW, and now you are passing the stones. OTHER PROBLEMS/DIAGNOSIS: Active Problems: Kidney stone on right side OPERATIONS PERFORMED WHILE IN THE HOSPITAL: None IMPORTANT TEST/PROCEDURES: Extra corpral shock wave treatment TEST RESULTS NOT AVAILABLE AT THIS TIME: No pending results Discharge Disposition Discharge Disposition: Home With Self Care Activity When You Leave the Hospital Resume pre-hospital activity Diet Instructions Resume your pre-hospital diet Call Your Doctor If Your temperature is greater than 101F Follow Up Appointments Follow-Up Appointment When: In 1 week Patient/Parents to call for appointment?: Yes Scottie Mosher [phone] [address] PCP Requested Referral FOLLOW-UP APPOINTMENTS ALREADY SCHEDULED WITH A [facility] PROVIDER: Future Appointments Date Time Provider Department Center 09/11/2017 1:30 PM Manuel Pavon MD [facility] DISCHARGE MEDICATION: Discharge Medication List as of 08/22/2017 2:12 PM CONTINUE these medications which have NOT CHANGED levonorgestrel (MIRENA) 20 mcg/24 hour (5 years) IUD Use as directed after in office placement. In Office, Disp-1 Each, R-0 Dx: 1. Encounter for IUD insertion oxyCODONE-acetaminophen (PERCOCET) 5-325 mg tablet Take 1 tablet by mouth every 6 hours as needed for Pain for up to 5 days. Print RX, Disp-20 tablet, R-0 Dx: 1. Kidney stone TIME OF CARE: Discharge Management: I personally spent less than 30 minutes involved in the discharge management of this patient. SIGNATURE: Scottie Mosher MD PAGER/CONTACT #: DATE: August 26, 2017 TIME: 8:20 AM CASE MANAGEM Observed: 08/22/2017 Status: COMPLETED Source: [place] 12:43 PM CLINIC OTHER CAMPUS REPOSITORY [facility]NO ID: [id number] Author: Henrietta Tucker (Rn), RN Service: Case Management Author Type: Registered Nurse Type: Care Mgt Progress Note Filed: 08/22/2017 12:45 PM Note Text: CARE MANAGEMENT DISCHARGE NOTE SERVICE DATE: 08/22/2017 SERVICE TIME: 12:43 PM LOS: 1 day Admission Date: 08/20/2017 DISCHARGE ARRANGEMENT (list agency and phone number) Home CAREGIVER ASSESSMENT: Caregiver is ready, willing and able to meet the patient's needs as recommended by the inter-professional team? No Caregiver Needed Patient's transition needs and plan for meeting these needs: Home with self care. Does the patient have an acute stroke diagnosis, or has the patient had a stroke during this admission? No HANDOFF COMMUNICATION: Primary Care Physician: Scottie Mosher MD Summary of Care to Dr. Mosher TRANSPORTATION ARRANGEMENTS: Car via family ADDITIONAL CONTACT RESOURCES: N/A Needs Prior to Discharge: None;Ready for Discharge Discharge today to home with no skilled needs. Family to transport. SIGNATURE: Henrietta Tucker RN PATIENT NAME: Lynn Nieto DATE: August 22, 2017 TIME: 12:43 PM PAGER/CONTACT #: [phone] CONSULT PROG Observed: 08/22/2017 Status: COMPLETED Source: [place] 12:17 PM CLINIC OTHER CAMPUS REPOSITORY HNO ID: [id number] Author: Den Little V Service: Urology Author Type: Physician Type: Consult Progress Note Filed: 08/22/2017 12:18 PM Note Text: doing well post op. ok for discharge. followup with dr. marie PROGRESS Observed: 08/22/2017 Status: COMPLETED Source: [place] 8:07 AM [facility] OTHER [place] REPOSITORY HNO ID: [id number] Author: Scottie Mosher Service: Family Practice Author Type: Physician Type: Progress Notes Filed: 08/22/2017 8:08 AM Note Text: INPATIENT PROGRESS NOTES Patient Name: Lynn Nieto DATE of SERVICE: 08/22/2017 TIME of SERVICE: 8:07 AM PRIMARY SERVICE: Family Practice INTERVAL HPI: feels like she got kicked in the kidney, eating Blood in th urine ASSESSMENT AND PLAN: Urology to see Likely home today MEDICATIONS: Current hospital medications: morphine 4 mg injection 4 mg INTRAVENOUS q 3 H PRN ketorolac 30 mg injection (TORADOL) 30 mg INTRAVENOUS q 6 H PRN NaCl 0.9% iv infusion 100 mL/hr INTRAVENOUS CONTINUOUS aluminum-magnesium hydroxide-simethicone 200-200-20 mg/5 mL 30 mL (MAALOX,MYLANTA,MAG-AL PLUS) 30 mL ORAL q 6 H PRN ondansetron orally disintegrating 4 mg tab(s) (ZOFRAN ODT) 4 mg ORAL q 6 H PRN ondansetron (PF) 4 mg injection (ZOFRAN) 4 mg INTRAVENOUS q 6 H PRN magnesium hydroxide 400 mg/5 mL 30 mL (MOM) 30 mL ORAL DAILY PRN tamsulosin ER 0.4 mg cap(s) (FLOMAX) 0.4 mg ORAL BID Patient Vitals for the past 48 hrs: BP Temp Temp src Pulse Resp SpO2 Height Weight 08/22/17 0722 102/55 36.5 ?C (97.7 ?F) Oral 68 18 95 % - - 08/22/17 0349 90/51 36.9 ?C (98.4 ?F) Oral (!) 57 18 96 % - - 08/21/17 2338 97/52 36.9 ?C (98.4 ?F) Oral 60 18 95 % - - 08/21/17 1942 97/55 37.1 ?C (98.8 ?F) Oral (!) 57 18 95 % - - 08/21/17 1704 108/59 37.2 ?C (99 ?F) Oral 63 18 100 % - - 08/21/17 1654 106/55 37.2 ?C (99 ?F) Temporal Art 70 16 97 % - - 08/21/17 1645 100/55 - - 62 16 97 % - - 08/21/17 1630 104/56 - - (!) 55 16 96 % - - 08/21/17 1615 107/59 - - 60 16 98 % - - 08/21/17 1600 105/61 - - 62 16 97 % - - 08/21/17 1545 105/63 - - 76 16 98 % - - 08/21/17 1530 117/65 - - 71 14 95 % - - 08/21/17 1528 118/66 37.3 ?C (99.1 ?F) Temporal Art 60 14 95 % - - 08/21/17 1133 108/56 36.6 ?C (97.9 ?F) Oral (!) 56 18 100 % - - 08/21/17 0735 111/60 36.6 ?C (97.9 ?F) Oral (!) 53 18 100 % - - 08/21/17 0344 98/60 - - - - - - - 08/21/17 0329 91/59 36.3 ?C (97.3 ?F) Oral 70 16 97 % - - 08/21/17 0117 114/65 36.3 ?C (97.3 ?F) Oral (!) 50 18 100 % - - 08/21/17 0026 102/51 - - (!) 52 16 96 % - - 08/20/17 2309 102/55 - - 57 18 98 % - - 08/20/17 2214 125/61 - - 60 16 98 % - - 08/20/178 118/58 36.6 ?C (97.8 ?F) Oral 68 16 98 % 167.6 cm (5' 6) 70.3 kg (155 lb) PHYSICAL EXAM: GENERAL: alert, no distress, cooperative SKIN: No rashes or lesions. OROPHARYNX: Oropharynx normal. NECK: no jugulovenous distention, supple LUNGS: Lungs clear to auscultation. CARDIAC: normal S1 and S2; no rubs, murmurs, or gallops ABDOMEN: Abdomen soft, non-tender. BS normal. No masses or organomegaly. EXTREMETIES: No deformities, cyanosis, edema, clubbing or skin discoloration. NEURO: Alert, oriented X 3, Gait normal. Motor and Sensation grossly intact., DATA: CBC: Recent Labs 08/22/17 0516 WBC 9.85 RBC 4.11 HB 13.2 HCT 39.8 PLT 180 MCV 96.8 MCH 32.1 MPV 11.6 Coags: No results for input(s): INR, APTT in the last 24 hours. Invalid input(s): PT CMP: Recent Labs 08/22/17 0516 NA 139 K 4.4 CHLOR 105 CO2 23 BUN 14 CREAT 0.73 GLUC 117* TPROT 5.7* CA 8.3* TBILI 0.4 ALKPHOS 38 ALT 12 AST 15 ANION 11 Cardiac Enzymes: No results for input(s): CK, MB, CKMB, TROPT in the last 24 hours. Liver Function, Amylase, Lipase: Recent Labs 08/22/17 0516 TPROT 5.7* ALB 3.5* ALT 12 AST 15 ALKPHOS 38 TBILI 0.4 ABG's: No results for input(s): PH, PCO2, PO2, BE, HCO3, CO2CT, O2HB, COHB, MHGB, TEMP, PHTC, PCO2T, PO2T, O2AD in the last 24 hours. MG/PHOS: No results for input(s): MG, P in the last 24 hours. SIGNATURE: Scottie Mosher MD DATE: August 22, 2017 TIME: 8:07 AM CBC Collected: 08/22/2017 Status: F Source: [facility] [facility] 5:16 AM CLINIC OTHER CAMPUS REPOSITORY TYPE CODE TESTS RESULT OUT OF REFERENCE UNITS RANGE LAB WBC 3.70-11.00 k/uL WBC 9.85 LAB RBC 3.90-5.20 m/uL RBC 4.11 LAB HGB 11.5-15.5 g/dL Hemoglobin 13.2 LAB HCT 36.0-46.0 % Hematocrit 39.8 LAB MCV 80.0-100.0 fL MCV 96.8 LAB MCH 26.0-34.0 pG MCH 32.1 LAB MCHC 30.5-36.0 g/dL MCHC 33.2 LAB RDWCV 11.5-15.0 % RDW-CV 12.4 LAB PLTCT 150-400 k/uL Platelet Count 180 LAB MPV 9.0-12.7 fL MPV 11.6 Performed By: #### CBC, CMP #### [facility] [address] [facility] [phone] COMP METABOLIC PANEL Collected: 08/22/2017 Status: F Source: [place] 5:16 AM CLINIC OTHER CAMPUS REPOSITORY TYPE CODE TESTS RESULT OUT OF REFERENCE UNITS RANGE LAB TP 6.3-8.0 g/dL Low Protein, Total 5.7 LAB ALB 3.9-4.9 g/dL Low Albumin 3.5 LAB CA 8.5-10.2 mg/dL Low Calcium, Total 8.3 LAB TBIL 0.2-1.3 mg/dL Bilirubin, Total 0.4 LAB ALKP 32-117 U/L Alkaline Phosphatase 38 LAB AST 13-35 U/L AST 15 LAB GLU 74-99 mg/dL Glucose High 117 Result Comment: The [place] [employer] (ADA) provides guidance for cutoff values for fasting glucose and random glucose. The ADA defines fasting as no caloric intake for at least 8 hours. Fas ting plasma glucose results between 100 to 125 mg/dL indicate increased risk for diabetes (prediabetes). Fasting plasma glucose results greater than or equal to 126 mg/dL meet the criteria for diagnosis of diabetes. In the absence of unequivocal hyperglycemia, results should be confirmed by repeat testing. In a patient with classic symptoms of hyperglycemia or hyperglycemic crisis, random plasma glucose results greater than or equal to 200 mg/dL meet the criteria for diagnosis of diabetes. Reference: Standards of Medical Care in Diabetes 2016, [place] [employer] Association. Diabetes Care. 2016.39(Suppl 1). LAB BUN 7-21 mg/dL BUN 14 LAB CRET 0.58-0.96 mg/dL Creatinine 0.73 LAB NA 136-144 mmol/L Sodium 139 LAB K 3.7-5.1 mmol/L Potassium 4.4 LAB CL 97-105 mmol/L Chloride 105 LAB CO2 22-30 mmol/L CO2 23 LAB AGAP 9-18 mmol/L Anion Gap 11 LAB ALT 7-38 U/L ALT 12 LAB GFRAA eGFR- Amer. >60 LAB GFRNAA . eGFR-All Other Races >60 Result Comment: eGFR (Estimated GFR) Units of measure: mL/min/1.73 meters squared eGFR is derived from the reexpressed MDRD Study equation using the following parameters: serum creatinine, age, gender and race. The creatinine assay has been calibrated to be traceable to IDMS. An eGFR <60 mL/min/1.73m2 for >3 months is consistent with chronic kidney disease. Refer to KDOQI guidelines for clinical interpretation. In patients with unstable renal function, e.g. those with acute kidney injury, the eGFR may not accurately reflect actual GFR. Performed By: #### CBC, CMP #### [facility] [address] [place] [address] NURSING PROG Observed: 08/21/2017 Status: COMPLETED Source: [place] 7:00 PM CLINIC OTHER CAMPUS REPOSITORY [facility] ID: [id number] Author: Jasmin Dias (Rn), RN Service: (none) Author Type: Registered Nurse Type: Nursing Progress Note Filed: 08/22/2017 4:35 AM Note Text: Nursing Progress Note Patient Name: Lynn Nieto Patient Location: [place] [id number] Daily Note: 1900: Assumed pt care. Bedside report received from ALMA DELIA Russell. Pt sleeping comfortably in bed. Respirations even and unlabored. Safety measures maintained. 2000: Pt assessment completed. See NPR. Pt rates pain at a 2 on a 0-10 scale, stating it feels like someone kicked me in the kidney. Pain interventions declined. Administered evening dose of flomax. No further needs noted at this time. Safety maintained. 2100: Pt observed asleep in bed. Safety maintained. 2300: Pt observed asleep in bed. Safety maintained. 0120: Pt observed asleep in bed. Safety maintained. 0300: Pt observed asleep in bed. Safety maintained. 0416: New bag of IV fluids hung for pt. Pain assessed. Pt rated pain as a 0/10. No further needs noted. Safety maintained. This note was completed by: Jasmin Dias RN CASE MGT INIT Observed: 08/21/2017 Status: COMPLETED [facility] CLINIC OTHER CAMPUS REPOSITORY [facility] ID: [id number] Author: Leonora Del Cid (Rn), RN Service: Care Management Author Type: Registered Nurse Type: Care Mgt Initial Assessment Filed: 08/21/2017 4:44 PM Note Text: CARE MANAGEMENT: ASSESSMENT AND DISCHARGE PLAN SERVICE DATE: 08/21/2017 SERVICE TIME: 11:15 am PRIMARY CARE PHYSICIAN: Scottie Mosher - confirmed with patient. 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 No Advance Directive: Current Advance Directive: None Diamond Picker Assisted with AD Completion: No Unable to Assist Due To:: Other: See Comment (Pt declining to complete at this time, nor does she want any information about it.) Health Literacy: 1. How often do you need to have someone help you when you read instructions, pamphlets, or other written material from your doctor or pharmacy? Never - 1 2. How confident are you filling out medical forms by yourself? Extremely - 1 If Patient scores > 3 on either question, the following interventions were put into place: Patient did not score > 3 FUNCTIONAL AND COGNITIVE/BEHAVIORAL PRIOR TO ADMISSION: Baseline Mental Status: Alert AND Oriented, Person, Place , Time and Situation Functional Status: Independent Does Patient Currently Receive Any Community Services or Home Care? None Equipment Prior to Admission: None Has the Patient Been in a Residential Facility in the Past 30 days? 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 Yes Patient's transition needs and plan for meeting these needs: Returning to home with supportive family and follow-up appointment(s) with physician(s). Does the patient have an acute stroke diagnosis, or has the patient had a stroke during this admission? No Medication Adherence: I am convinced of the importance of my prescription medication: Agree completely - 0 I worry that my prescription medication will do more harm than good to me Disagree completely - 0 I feel financially burdened by my [id number] expenses for my prescription medication: Disagree completely - 0 Patient is categorized as low risk < 2 Are you interested in bedside delivery of your medications? Yes Food Concerns: In the Last Month, Have You had Trouble Getting Food? No trouble getting food During the Last Month, Have You Worried Whether Your Food Would Run Out Before You Had Enough Money to Buy More? No Is the Patient Psychosocially Complex? No ASSESSMENT AND PLAN: Medical Needs: None Psychosocial Needs: None FREEDOM OF CHOICE EXPLAINED: N/A POTENTIAL TRANSITION PLANS Home Reviewed Electronic Loving Record prior to meeting patient at bedside. Introduced self and explained role. Discussed discharge planning goals. Patient states she has had 12 - 13 other kidney stones in the past. She has been seen by the urologist today, and the lithotrypsy equipment is here today. She is planning to have the procedure today. Patient states goal is to return home with no skilled services anticipated, being transported by family. Please page CM should further needs arise. SIGNATURE: KANE Knowles, RN, ACM-RN PATIENT NAME: Lynn Nieto DATE: August 21, 2017 TIME: 4:39 PM PAGER/CONTACT #: [phone] ANES POST Observed: 08/21/2017 Status: COMPLETED Source: [place] 3:58 PM [facility] REPOSITORY HNO ID: [id number] Author: Scottie Madden Service: Anesthesiology Author Type: Anesthesiologist Type: Anesthesia PostOp Filed: 08/21/2017 3:58 PM Note Text: POST ANESTHESIA EVALUATION NOTE SERVICE DATE: 08/21/2017 SERVICE TIME: 15.38 : 1970 Vitals: 08/21/17 0329 08/21/17 0735 08/21/17 1133 08/21/17 1528 Temp: 36.3 ?C (97.3 ?F) 36.6 ?C (97.9 ?F) 36.6 ?C (97.9 ?F) 37.3 ?C (99.1 ?F) 08/21/17 1133 08/21/17 1528 08/21/17 1530 08/21/17 1545 BP: 108/56 118/66 117/65 105/63 08/21/17 1133 08/21/17 1528 08/21/17 1530 08/21/17 1545 Pulse: (!) 56 60 71 76 08/21/17 1133 08/21/17 1528 08/21/17 1530 08/21/17 1545 Resp: 18 14 14 16 08/21/17 1133 08/21/17 1528 08/21/17 1530 08/21/17 1545 SpO2: 100% 95% 95% 98% Validated Vital Signs: Yes POST ANES STATUS: No apparent anesthetic complications. The patient is appropriately hydrated with stable respiratory and cardiovascular status. Patient has safe and adequate airway control. The patient has appropriate pain relief and no significant post operative nausea or vomiting. The patient has achieved baseline mental status. Further assessment by Anesthesia Service: None Other Remarks: SIGNATURE: Scottie Madden MD PATIENT NAME: Lynn Nieto DATE: August 21, 2017 TIME: 3:58 PM PAGER/CONTACT #: anesthesia BRIEF OP NOT Observed: 08/21/2017 Status: COMPLETED Source: [place] 3:22 PM [facility] REPOSITORY [facility]NO ID: [id number] Author: Anmol Marie Jr. Service: (none) Author Type: Physician Type: Brief Op Note Filed: 08/21/2017 3:23 PM Note Text: BRIEF OPERATIVE / PROCEDURE NOTE LOG ID: * No surgery found * Surgery/Procedure Date: * No surgery found * Incision/Procedure Start Time: Incision Close/Procedure End Time: Surgeon(s)/Proceduralist(s) and Corporation Secretary(s): * Surgery not found * * Surgery not found * Procedure(s): r eswl Anesthesia: * No surgery found * Findings: as dx suggests Estimated Blood Loss: 0 ml Specimens: None Complications: None Pre-Op/Pre-Procedure Diagnosis: r renal calculus Post-Op/Post-Procedure Diagnosis: * No surgery found * same SIGNATURE: Anmol Marie Jr, MD PATIENT NAME: lynn nieto DATE: August 21, 2017 TIME: 330 PAGER/CONTACT #: [phone] ANES PREOP Observed: 08/21/2017 Status: COMPLETED Source: [place] 2:30 PM CLINIC OTHER CAMPUS REPOSITORY [facility] ID: [id number] Author: Jose Alberto Loredo Service: (none) Author Type: Nurse Assistant Corporate Controller Type: Anesthesia PreOp Filed: 08/21/2017 2:32 PM Note Text: ANESTHESIOLOGY PREOPERATIVE ASSESSMENT SERVICE DATE: 08/21/2017 SERVICE TIME: 2:31 PM : 1970 Surgeon(s): Anmol Marie Jr. Procedure(s) (LRB): EXTRACORPOREAL SHOCKWAVE LITHOTRIPSY UNILATERAL (Right) Estimated body mass index is 25.02 kg/m? as calculated from the following: Height as of this encounter: 167.6 cm (5' 6). Weight as of this encounter: 70.3 kg (155 lb). MOST RECENT HEMATOCRIT AND POTASSIUM RESULTS: Hematocrit 44.4 08/20/2017 Potassium 3.7 08/20/2017 ANES DOS/PREOP NOTE: Vitals: 08/21/17 0329 08/21/17 0344 08/21/17 0735 08/21/17 1133 BP: 91/59 98/60 111/60 108/56 Pulse: 70 (!) 53 (!) 56 Resp: Temp: 36.3 ?C (97.3 ?F) 36.6 ?C (97.9 ?F) 36.6 ?C (97.9 ?F) TempSrc: Oral Oral Oral SpO2: 97% 100% 100% Weight: Height: Active Problem List: Not available in Epic; refer to paper chart Past Medical/Surgical History: Not availble in Epic; refer to paper chart Family History: Not availble in Epic; refer to paper chart Social History: Not availble in Epic; refer to paper chart H AND P/Review of Systems: Not available in Epic; refer to paper chart No current facility-administered medications on file prior to encounter. Current Outpatient Prescriptions on File Prior to Encounter: levonorgestrel (MIRENA) 20 mcg/24 hour (5 years) IUD Use as directed after in office placement. Current Facility-Administered Medications: [MAR Hold due to Transfer] morphine 4 mg injection 4 mg INTRAVENOUS q 3 H PRN Scottie Mosher 4 mg at 08/21/17 0925 [MAR Hold due to Transfer] ketorolac 30 mg injection (TORADOL) 30 mg INTRAVENOUS q 6 H PRN Scottie Mosher [MAR Hold due to Transfer] NaCl 0.9% iv infusion 100 mL/hr INTRAVENOUS CONTINUOUS Scottie Mosher Last Rate: 100 mL/hr at 08/21/17 0216 100 mL/hr at 08/21/17 0216 [MAR Hold due to Transfer] aluminum-magnesium hydroxide-simethicone 200-200-20 mg/5 mL 30 mL (MAALOX,MYLANTA,MAG-AL PLUS) 30 mL ORAL q 6 H PRN Scottie Mosher [MAR Hold due to Transfer] ondansetron orally disintegrating 4 mg tab(s) (ZOFRAN ODT) 4 mg ORAL q 6 H PRN Scottie Mosher Or [MAR Hold due to Transfer] ondansetron (PF) 4 mg injection (ZOFRAN) 4 mg INTRAVENOUS q 6 H PRN Scottie Mosher 4 mg at 08/21/17 0804 [MAR Hold due to Transfer] magnesium hydroxide 400 mg/5 mL 30 mL (MOM) 30 mL ORAL DAILY PRN Scottie Mosher [MAR Hold due to Transfer] tamsulosin ER 0.4 mg cap(s) (FLOMAX) 0.4 mg ORAL BID Scottie Mosher Allergies: ALLERGIES Allergen Reactions - Codeine Mental Status Change - Shellfish Containin* Hives REVIEW OF SYSTEMS: Review of Systems: ASSET MANAGEMENT LEAD: no history of ASSET MANAGEMENT LEAD disease RESP: no history of pulmonary disease CARD: no history of cardiac disease GI: no history of GI disease RENAL: no history of renal disease ENDO: no history of endocrine disease HEME: no history of hematologic disease RHEUM: no history of rheumatologic disease PSYCHIATRIC: no history of psychiatric disease ANESTHESIOLOGY REVIEW: Airway Assessment: MP 2; Neck ROM: Full ROM without neurologic symptoms; Airway Evaluation: No significant abnormalities Symptoms of Sleep Apnea: None Intubation History: No previous history of difficult intubation Dentition: Teeth intact ADDITIONAL PHYSICAL EXAM: Lungs: Patient health status unchanged since recent history and physical. See history and physical for exam findings. Cardiac: Patient health status unchanged since recent history and physical. See history and physical for exam findings. Additional Pertinent Findings: N/A ADVERSE ANESTHESIA EVENT: No history of adverse event FAMILY HIISTORY OF ANESTHESIA: No known issues BLOOD PRODUCTS: Not anticipated for this procedure OTHER MEDICAL PROBLEMS: None I have interviewed and examined the patient. I have reviewed the medical record and/or the pre-anesthesia evaluation, pertinent labs, and test results. Significant changes in the patient's condition since the History and Physical, not otherwise documented in primary service progress notes: No Anesthetic risks, benefits, alternatives, personnel and consent discussed: Yes ANES REVIEW: This contains updated information obtained within 48 hours of Surgery/Procedure. SIGNATURE: Jose Alberto Loredo APRN.APPLICATION COORDINATOR PATIENT NAME: Lynn Nieto DATE: August 21, 2017 TIME: 2:31 PM PAGER/CONTACT #: [phone] NURSING PROG Observed: 08/21/2017 Status: COMPLETED Source: [place] 2:23 PM [facility] REPOSITORY HNO ID: [id number] Author: Celina DavisRn), RN Service: (none) Author Type: Registered Nurse Type: Nursing Progress Note Filed: 08/21/2017 2:29 PM Note Text: @ 1400 Pt received to [facility], via cart. in attendance. Side rails upAND call lehman in reach - warm blankets for comfort. @ 1412 C/o nausea - medicated with Zofran. NURSING PROG Observed: 08/21/2017 Status: COMPLETED Source: [place] 1:42 PM [facility] REPOSITORY HNO ID: [id number] Author: Yvonne CastRn), RN Service: (none) Author Type: Registered Nurse Type: Nursing Progress Note Filed: 08/21/2017 1:43 PM Note Text: Nursing Progress Note Patient Name: Lynn Nieto Patient Location: [facility] [place]-0203/[id number] Daily Note: 1340: Ambulatory called and stated being moved ahead for surgery. Pt made aware and requests security to come up and get jewlery. Pt states okay to update Kirby and both of her parents. Report Called to [facility] This note was completed by: Yvonne Cast RN XR ABDOMEN 1V SUPINE Observed: 08/21/2017 Status: F Source: [place] 8:54 AM [facility] REPOSITORY * * *Final Report* * * DATE OF EXAM: Aug 21 2017 8:54AM MDX [id number] - XR ABDOMEN 1V SUPINE / PROCEDURE REASON: Kidney stone * * * * Physician Interpretation * * * * ABDOMEN, 1 VIEW. CLINICAL INFORMATION: Nephrolithiasis TECHNIQUE: Supine abdomen, 2 image(s) COMPARISON: CT 08/20/2017 RESULT: Bilateral nephrolithiasis is present, largest a 7 mm RIGHT interpolar calculus. No definite ureteral calculi. Pelvic phleboliths are present. IUD in the pelvis. No dilated bowel loops or acute skeletal abnormalities. IMPRESSION: BILATERAL NEPHROLITHIASIS House Fellow: LYNDA Transcribe Date/Time: Aug 21 2017 8:58A Dictated by : JIGAR RIVERS MD This examination was interpreted and the report reviewed and electronically signed by: JIGAR RIVERS MD on Aug 21 2017 9:00AM EST [id number] CONSULT Observed: 08/21/2017 Status: COMPLETED Source: [place] 8:23 AM [facility] REPOSITORY HNO ID: [id number] Author: Anmol Marie Jr. Service: (none) Author Type: Physician Type: Consults Filed: 08/21/2017 8:26 AM Note Text: CONSULT PROGRESS NOTE SERVICE DATE: 08/21/2017 SERVICE TIME: 8:24 AM CONSULTING SERVICE: Urology ASSESSMENT 1. Right Renal Calculus PLAN 1. Right ESWL All r/b/a of surgery discussed, infection, bleeding, damage to nearby structures, repeat surgery, stent placement, steinstrasse, kidney damage, surgery failure, , heart attack, stroke, deep vein thrombosis, pulmonary embolus. Patient verbalized understanding and agrees to proceed. 2. Urine cx pending 3. kub pending SUBJECTIVE INTERVAL HPI: 47 yo F with history of urolithiasis. Presents with acute onset r flank pain and n/v. No fever. Ct scan showed 9mm r renal calculus obstructing R upper pole calyx. No ureteral stone identified. MEDICATIONS: Current hospital medications: morphine 4 mg injection 4 mg INTRAVENOUS q 3 H PRN ketorolac 30 mg injection (TORADOL) 30 mg INTRAVENOUS q 6 H PRN NaCl 0.9% iv infusion 100 mL/hr INTRAVENOUS CONTINUOUS aluminum-magnesium hydroxide-simethicone 200-200-20 mg/5 mL 30 mL (MAALOX,MYLANTA,MAG-AL PLUS) 30 mL ORAL q 6 H PRN ondansetron orally disintegrating 4 mg tab(s) (ZOFRAN ODT) 4 mg ORAL q 6 H PRN ondansetron (PF) 4 mg injection (ZOFRAN) 4 mg INTRAVENOUS q 6 H PRN magnesium hydroxide 400 mg/5 mL 30 mL (MOM) 30 mL ORAL DAILY PRN tamsulosin ER 0.4 mg cap(s) (FLOMAX) 0.4 mg ORAL BID OBJECTIVE PHYSICAL EXAM: Patient Vitals for the past 24 hrs: BP Temp Temp src Pulse Resp SpO2 Height Weight 08/21/17 0735 111/60 36.6 ?C (97.9 ?F) Oral (!) 53 18 100 % - - 08/21/17 0344 98/60 - - - - - - - 08/21/17 0329 91/59 36.3 ?C (97.3 ?F) Oral 70 16 97 % - - 08/21/17 0117 114/65 36.3 ?C (97.3 ?F) Oral (!) 50 18 100 % - - 08/21/17 0026 102/51 - - (!) 52 16 96 % - - 08/20/17 2309 102/55 - - 57 18 98 % - - 08/20/17 2214 125/61 - - 60 16 98 % - - 08/20/17 2138 118/58 36.6 ?C (97.8 ?F) Oral 68 16 98 % 167.6 cm (5' 6) 70.3 kg (155 lb) Body mass index is 25.02 kg/m?. GENERAL: Alert, no distress, cooperative ABDOMEN: Abdomen soft, non-tender. BS normal. No masses or organomegaly. GENITALIA FEMALE: no navas DATA: Diagnostic tests reviewed for today's visit: Most recent labs No results found for: PSA Glucose (mg/dL) Date Value 08/20/2017 86 BUN (mg/dL) Date Value 08/20/2017 21 Creatinine (mg/dL) Date Value 08/20/2017 0.84 Sodium (mmol/L) Date Value 08/20/2017 140 Potassium (mmol/L) Date Value 08/20/2017 3.7 Chloride (mmol/L) Date Value 08/20/2017 102 CO2 (mmol/L) Date Value 08/20/2017 26 Protein, Total (g/dL) Date Value 08/20/2017 7.7 Albumin (g/dL) Date Value 08/20/2017 4.6 Calcium (mg/dL) Date Value 08/20/2017 9.4 Alkaline Phosphatase (U/L) Date Value 08/20/2017 47 Bilirubin, Total (mg/dL) Date Value 08/20/2017 0.3 AST (U/L) Date Value 08/20/2017 14 ALT (U/L) Date Value 08/20/[address] a/p 1. ?There is focal obstruction in the upper pole of the right kidney secondary to a 9 mm calculus within the upper right kidney. 2. ?Bilateral nephrolithiasis. 3. ?Stable probable or pelvic cyst in the lower pole of the left kidney. SIGNATURE: Anmol Marie Jr, MD PATIENT NAME: Lynn Nieto DATE: August 21, 2017 TIME: 8:24 AM PAGER: [phone] HISTORY PHYSICAL Observed: 08/21/2017 Status: COMPLETED Source: [place] 6:33 AM [facility] OTHER CAMPUS REPOSITORY O ID: [id number] Author: Scottie Mosher Service: Family Practice Author Type: Physician Type: HANDP Filed: 08/21/2017 7:03 AM Note Text: HISTORY AND PHYSICAL EXAMINATION - INTERNAL MEDICINE PATIENT NAME: Lynn Nieto SERVICE DATE: 08/21/2017 SERVICE TIME: 6:33 AM PRIMARY CARE PHYSICIAN: Scottie Mosher ASSESSMENT AND PLAN Active Problems: Kidney stone on right side POA: Yes Assessment AND Plan: will have urology consult with 9mm stone For now iv pain meds and ivf with flowmax even though 9mm is likely not to pass SUBJECTIVE CHIEF COMPLAINT: Right flank pain HISTORY OF PRESENT ILLNESS: Ms. Nieto is a 47 year old female who presents with right-sided flank pain consistent with previous kidney stones. States that she had done quite a while without a kidney stone however she notes when she drinks a lot of tea she tends to have more of them. States she's been drinking more tea recently started developing right-sided flank pain. Denies any urinary symptoms but states her symptoms recently started. Denies any abdominal pain. States she's had some nausea without vomiting. Denies any diarrhea or constipation. HAS 9MM RIGHT SIDED stone. PAST MEDICAL HISTORY: PAST MEDICAL HISTORY Diagnosis Date - IUD (intrauterine device) in place 07/08/12 Mirena - Kidney stone PAST SURGICAL HISTORY: PAST SURGICAL HISTORY Procedure Laterality Date - APPENDECTOMY HX - LAPAROSCOPIC APPENDECTOMY during first - TOOTH EXTRACTION x4 wisdom teeth FAMILY HISTORY: FAMILY HISTORY Problem Relation Age of Onset - No Family History No Family History female/colon/prostate/pancreatic CA SOCIAL HISTORY: Social History Substance Use Topics - Smoking status: Never Smoker - Smokeless tobacco: Never Used - Alcohol use No MEDICATIONS: Prescriptions Prior to Admission: levonorgestrel (MIRENA) 20 mcg/24 hour (5 years) IUD Use as directed after in office placement. Disp: 1 Each Rfl: 0 ALLERGIES: ALLERGIES Allergen Reactions - Codeine Mental Status Change - Shellfish Containin* Hives COMPLETE REVIEW OF SYSTEMS: GENERAL: No weight loss, malaise or fevers HEENT: Negative for frequent or significant headaches, No changes in hearing or vision, no nose bleeds or other nasal problems NECK: Negative for lumps, goiter, pain and significant neck swelling RESPIRATORY: Negative for cough, wheezing or shortness of breath. CARDIOVASCULAR: Negative for chest pain, leg swelling or palpitations. GI: Negative for abdominal discomfort, blood in stools or black stools or change in bowel habits : No history of dysuria, frequency or incontinence, +flank pain MUSCULOSKELETAL: Negative for joint pain or swelling, back pain or muscle pain. SKIN: Negative for lesions, rash, and itching. PSYCH: Negative for sleep disturbance, mood disorder and recent psychosocial stressors. HEMATOLOGY/LYMPHOLOGY Negative for prolonged bleeding, bruising easily or swollen nodes. ENDOCRINE: Negative for cold or heat intolerance, polyuria, polydipsia and goiter. NEURO: No history of headaches, syncope, paralysis, seizures or tremors OBJECTIVE PHYSICAL EXAM: Patient Vitals for the past 24 hrs: BP Temp Temp src Pulse Resp SpO2 Height Weight 08/21/17 0344 98/60 - - - - - - - 08/21/17 0329 91/59 36.3 ?C (97.3 ?F) Oral 70 16 97 % - - 08/21/17 0117 114/65 36.3 ?C (97.3 ?F) Oral (!) 50 18 100 % - - 08/21/17 0026 102/51 - - (!) 52 16 96 % - - 08/20/17 2309 102/55 - - 57 18 98 % - - 08/20/17 2214 125/61 - - 60 16 98 % - - 08/20/17 2138 118/58 36.6 ?C (97.8 ?F) Oral 68 16 98 % 167.6 cm (5' 6) 70.3 kg (155 lb) Body mass index is 25.02 kg/m?. PHYSICAL EXAMINATION: General appearance: well appearing, alert, in no acute distress, well-hydrated, well nourished Skin: skin color, texture, turgor normal, no suspicious rashes or lesions Eyes: Anicteric sclera. Pupils are equally round and reactive to light. Extraocular movements are intact. Ears: external ears normal, canals clear, TM's normal Oropharynx: lips, mucosa, and tongue normal, teeth and gums normal, oropharynx normal Neck: Supple, no adenopathy; thyroid symmetric, normal size, no bruits Back: no pain to palpation over spine or costovertebral angles, Lungs: clear to auscultation, no wheezing or rhonchi Heart: RRR without murmur, gallop, or rubs. No ectopy Abdomen: Normal abdominal exam, Abdomen soft, non-tender. Bowel sounds normal. No masses, organomegaly Extremities: Extremities normal. No deformities, edema, or skin discoloration. Good capillary refill. Musculoskeletal: Spine range of motion normal. Muscular strength intact Peripheral pulses: Normal Neuro: Gait normal. Reflexes normal and symmetric. Sensation grossly intact. DATA: CBC, Coags, BMP, Mg, Phos Recent Labs 08/20/17 2135 WBC 10.38 HB 14.8 HCT 44.4 PLT 200 NA 140 K 3.7 CHLOR 102 CO2 26 BUN 21 CREAT 0.84 GLUC 86 CA 9.4 Liver Function, Amylase, AND Lipase Recent Labs 08/20/17 2135 TPROT 7.7 ALB 4.6 ALT 11 AST 14 ALKPHOS 47 TBILI 0.3 LIPASE 36 Cardiac Enzymes ABGs SIGNATURE: Scottie Mosher MD DATE: August 21, 2017 TIME: 6:33 AM NURSING PROG Observed: 08/21/2017 Status: COMPLETED Source: [place] 2:00 AM [facility] REPOSITORY HNO ID: [id number] Author: Anatoliy TorresRn), RN Service: Nursing Author Type: Registered Nurse Type: Nursing Progress Note Filed: 08/21/2017 2:01 AM Note Text: Nursing Progress Note Patient Name: Lynn Nieto Patient Location: [facility]/[id number] Mosher called r/t admission orders, new orders received, LIP aware of HR 50. This note was completed by: Anatoliy Torres RN ED NOTE Observed: 08/21/2017 Status: COMPLETED Source: [place] 12:28 AM [facility] REPOSITORY HNO ID: [id number] Author: Rupali Taylor (Rn), RN Service: (none) Author Type: Registered Nurse Type: ED Notes Filed: 08/21/2017 12:31 AM Note Text: ellyn Cheatham RN aware of bed assignment. OPERATIVE NO Observed: 08/21/2017 Status: COMPLETED Source: [place] 12:00 AM [facility] REPOSITORY HNO ID: [id number] Author: Anmol Marie Jr. Service: (none) Author Type: Physician Type: Operative Report Filed: 08/24/2017 8:11 AM Note Text: [facility]- Operative Report LYNN NIETO : 1970 AGE: 47 SEX: F ACCTNUM: [id number] [facility]: [facility] LOCATION: [facility] [place][note 2] ATTENDING PHYSICIAN: SCOTTIE MOSHER M.D. DATE OF PROCEDURE: 08/21/2017 SURGEON: Anmol Marie M.D. MORTGAGE LOAN PROCESSOR: NONE ANESTHESIA: General. PREOPERATIVE DIAGNOSIS(ES): Right renal calculus. POSTOPERATIVE DIAGNOSIS(ES): Same. NAME OF OPERATION: Right extracorporeal shockwave lithotripsy. INDICATIONS: The patient is a 47-year-old female with a history of urolithiasis, had right flank pain. CT scan showed a right 1-cm stone obstructing the right upper pole calyx. The patient was counseled for options for management. We elected for extracorporeal shock wave lithotripsy in the operating room. After being explained the risks, benefits, alternatives of procedure, the patient was correctly marked, correctly identified, taken to the operative suite, placed on the table in supine position. General anesthesia was induced. The Lithotripter was then advanced to the right flank of the patient. The stone was identified under fluoroscopy. A total of 2500 shocks was delivered to the right-sided stone, seemed to break up well. At this point, the patient was reversed from anesthesia having tolerated the procedure well and afterwards was taken to postoperative care unit for recovery. COMPLICATIONS: None. Anmol Marie M.D. Urology MG:[id number] CT ABD/PEL WO IVCON Observed: 08/20/2017 Status: F Source: [place] 10:47 PM [facility] OTHER CAMPUS REPOSITORY * * *Final Report* * * DATE OF EXAM: Aug 20 2017 10:47PM [facility] [place] 0531 - CT ABD/PEL WO IVCON / PROCEDURE REASON: Flank pain * * * * Physician Interpretation * * * * EXAMINATION: CT ABDOMEN AND PELVIS WITHOUT IV CONTRAST CLINICAL HISTORY: Flank pain TECHNIQUE: Non-IV contrast imaging of the abdomen and pelvis was performed using standard technique, scanning from just above the dome of the diaphragm to the symphysis pubis. Unenhanced imaging is limited for the evaluation of some intra-abdominal and pelvic pathology. MQ: [id number]_3 Contrast: IV: None Oral: None CT Radiation dose: Integrated Dose-length product (DLP) for this visit = 347.46 mGy*cm. CT Dose Reduction Employed: Automated exposure control(AEC) and iterative recon COMPARISON: None. RESULT: Abdomen / Pelvis: Liver: Unremarkable. Biliary: The gallbladder is unremarkable. No biliary duct dilatation. Spleen: No splenomegaly. Pancreas: Unremarkable. Adrenals: No mass. Kidneys: There are numerous bilateral nonobstructing renal calculus. The largest in the upper pole of the right kidney measures 9 mm in maximum dimension. This appears to be causing obstruction of the upper pole collecting system with dilation of the subtended calyces. The largest in the left kidney is seen in the lower pole measuring 6 mm. There is no evidence of hydronephrosis. There is a prominent parapelvic cyst in the lower pole of the left kidney. No renal masses are appreciated on this noncontrast study. GI Tract: No bowel dilation. The appendix is not identified. No inflammatory changes are seen adjacent to the cecum. No evidence of bowel obstruction or perforation. The stomach is mildly distended with ingested debris. Lymph Nodes: No lymphadenopathy. Mesentery/peritoneum: No ascites. Retroperitoneum: No mass. Vasculature: No abdominal aortic or iliac artery aneurysm. Pelvis: An IUD is seen within the uterus. There is a 3.8 x 4.9 cm well-circumscribed low-attenuation lesion in the left adnexa associated with the left ovary suggesting a left ovarian cystic lesion. No significant pelvic lymphadenopathy is appreciated. The urinary bladder is nondistended. There are numerous probable phlebolith type calcifications in the pelvis. Bones/Soft Tissues: No acute abnormality. Lower thorax: There is minimal dependent atelectasis in both lung bases. IMPRESSION: 1. There is focal obstruction in the upper pole of the right kidney secondary to a 9 mm calculus within the upper right kidney. 2. Bilateral nephrolithiasis. 3. Stable probable or pelvic cyst in the lower pole of the left kidney. 4. No evidence of hydroureter. 5. There is a 4.9 cm left ovarian cystic lesion. Recommend follow-up with pelvic ultrasound on a routine basis to ensure resolution. 6. An IUD is seen within the uterus. House Fellow: ZACHB Transcribe Date/Time: Aug 20 2017 11:31P Dictated by : JIGAR PIZANO MD This examination was interpreted and the report reviewed and electronically signed by: JIGAR PIZANO MD on Aug 20 2017 11:50PM EST [id number] ED PROV NOTE Observed: 08/20/2017 Status: COMPLETED Source: [place] 10:13 PM [facility] OTHER CAMPUS REPOSITORY HNO ID: [id number] Author: Ar Cassidy MD Service: (none) Author Type: Physician Type: ED Provider Notes Filed: 08/21/2017 1:41 AM Note Text: ED Provider Note Patient Name: Lynn Nieto SERVICE DATE: 08/20/17 History Patient presents with: Flank Pain Nausea 47-year-old female presents emergency Department with complaints of right-sided flank pain consistent with previous kidney stones. States that she had done quite a while without a kidney stone however she notes when she drinks a lot of tea she tends to have more of them. States she's been drinking more tea recently started developing right-sided flank pain. Denies any urinary symptoms but states her symptoms recently started. Denies any abdominal pain. States she's had some nausea without vomiting. Denies any diarrhea or constipation. 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: No PAST MEDICAL HISTORY Diagnosis Date - IUD (intrauterine device) in place 07/08/12 Mirena - Kidney stone PAST SURGICAL HISTORY Procedure Laterality Date - APPENDECTOMY HX - LAPAROSCOPIC APPENDECTOMY during first - TOOTH EXTRACTION x4 wisdom teeth FAMILY HISTORY Problem Relation Age of Onset - No Family History No Family History female/colon/prostate/pancreatic CA Social History Social History Main Topics - Smoking status: Never Smoker - Smokeless tobacco: Never Used - Alcohol use No - Drug use: No - Sexual activity: Yes Partners: Male control/ protection: IUD ALLERGIES Allergen Reactions - Codeine Mental Status Change Review of Systems Constitutional: Negative. HENT: Negative. Respiratory: Negative. Negative for cough, shortness of breath and wheezing. Cardiovascular: Negative. Gastrointestinal: Positive for nausea. Negative for abdominal pain, constipation, diarrhea and vomiting. Genitourinary: Positive for flank pain. Negative for dysuria, hematuria and pelvic pain. Skin: Negative. Negative for rash and wound. Neurological: Negative. Negative for dizziness, light-headedness and headaches. Psychiatric/Behavioral: Negative. Physical Exam BP 118/58 Pulse 68 Temp (Src) 97.8 (Oral) Resp 16 Ht 5' 6 (1.68m) Wt 155 lb (70.3kg) SpO2 98% BMI 25.03 kg/(m2). Physical Exam Constitutional: She is oriented to person, place, and time. She appears well-developed and well-nourished. No distress. HENT: Head: Atraumatic. Eyes: EOM are normal. Pupils are equal, round, and reactive to light. Neck: Normal range of motion. Cardiovascular: Normal rate and regular rhythm. Pulmonary/Chest: Effort normal and breath sounds normal. No respiratory distress. She has no wheezes. Abdominal: Soft. Normal appearance. There is no tenderness. There is CVA tenderness. There is no tenderness at McBurney's point and negative Cannon's sign. Musculoskeletal: Normal range of motion. Neurological: She is alert and oriented to person, place, and time. No cranial nerve deficit. Coordination normal. Skin: Skin is warm. Capillary refill takes less than 2 seconds. Psychiatric: She has a normal mood and affect. Her behavior is normal. Judgment and thought content normal. Nursing note and vitals reviewed. Diagnostic Testing ED Labs Ordered and Reviewed URINALYSIS - Abnormal; Notable for the following: Result Value Ref Range Specific [place], Ur >1.029 (*) 1.001 - 1.029 Hemoglobin/Blood,Ur Large (*) Negative Protein, Urine Trace (*) Negative mg/dL All other components within normal limits URINE MICROSCOPIC - Abnormal; Notable for the following: RBC, Urine 10-30 (*) 0 - 3 /HPF Bacteria Occasional (*) 0 /HPF All other components within normal limits COMP METABOLIC PANEL LIPASE BLD CBC + DIFF HCG QUAL UR CT ABD/PEL WO IVCON Final Result IMPRESSION: 1. There is focal obstruction in the upper pole of the right kidney secondary to a 9 mm calculus within the upper right kidney. 2. Bilateral nephrolithiasis. 3. Stable probable or pelvic cyst in the lower pole of the left kidney. 4. No evidence of hydroureter. 5. There is a 4.9 cm left ovarian cystic lesion. Recommend follow-up with pelvic ultrasound on a routine basis to ensure resolution. 6. An IUD is seen within the uterus. House Fellow: ZACHB Transcribe Date/Time: Aug 20 2017 11:31P Dictated by : JIGAR PIZANO MD This examination was interpreted and the report reviewed and electronically signed by: JIGAR PIZANO MD on Aug 20 2017 11:50PM EST Procedures Medical Decision Making MDM Clinically and hemodynamically stable while here in the emergency department. Pain was moderately controlled so more pain medication will be given. Patient has a large obstructing stone and will be admitted to the hospital and understands diagnosis and admission plan. ..Attending Note I have personally performed a face to face assessment of the patient and have reviewed the PA/SECONDS GRADER note. My gillespie findings include: patient presents with right flank pain, has a 9 mm calculus within the upper pole of the right kidney, causing focal obstruction. Will admit for pain control and urology consult for stent. Other additions or changes: None Signature: Ar Cassidy MD Date: 08/21/2017 Time: 1:39 AM ED Course / Clinical Impression Clinical Impressions as of August 21 0017 Kidney stone on right side Plan The Patient was ADMITTED TO: Regular nursing floor. Condition at time of disposition: stable SIGNATURE: AIDEE Giordano Brennan J (Kana) 08/21/17 0017 Raffi Car (Kana) 08/21/17 0018 Ar Cassidy MD 08/21/17 0141 HCG QUAL, URINE Collected: 08/20/2017 Status: F Source: [place] 9:46 PM CLINIC OTHER CAMPUS REPOSITORY TYPE CODE TESTS RESULT OUT OF REFERENCE UNITS RANGE LAB UHCG Negative HCG Qual, Negative Urine Result Comment: False positives and false negatives are rare but have been described. Clinical correlation of the findings is recommended. Performed By: #### UHCG, UA, UAMIC #### [facility] [address] [place] [address] URINALYSIS Collected: 08/20/2017 Status: F Source: [place] 9:46 PM [facility] OTHER CAMPUS REPOSITORY TYPE CODE TESTS RESULT OUT OF RANGE REFERENCE UNITS LAB UCOL Yellow Color Yellow LAB [facility] Clear Clarity Clear LAB UGLUC Negative mg/dL Glucose, Urine Negative LAB UBIL Negative Bilirubin, Urine Negative LAB UKET Negative Ketones, Urine Negative LAB USPG 1.001-1.029 High Specific [place], Ur >1.029 LAB UHGB Negative Abnormal Hemoglobin/Blood, Large Alert Ur LAB UPH 5.0-8.0 pH 6.0 LAB UPROT Negative mg/dL Protein, Abnormal Urine Trace Alert LAB UUROB 0.2-1.0 Urobilinogen 0.2 LAB UNITR Negative Nitrites Negative LAB ULKEST Negative Leukest Negative Performed By: #### UHCG, UA, UAMIC #### [facility] [address] [place] [address] URINE MICROSCOPIC (FOR Collected: 08/20/2017 Status: F Source: [place] LAB USE ONLY) 9:46 PM [facility] OTHER [facility] REPOSITORY TYPE CODE TESTS RESULT OUT OF RANGE REFERENCE UNITS LAB UWBC 0-5 /HPF WBC 0-5 LAB URBC 0-3 /HPF Abnormal Alert RBC 10-30 LAB UCAST 0 /LPF Cast SEE COMMENT Result Comment: 0 LAB UBACT 0 /HPF Abnormal Bacteria Alert Occasional LAB UEPI /HPF SEE Epithelial Cells COMMENT Result Comment: 5-10 Squamous Epithelial Cells Performed By: #### UHCG, UA, UAMIC #### [facility] [address] [place] [address] Observed: 08/20/2017 Status: F Source: [place] URINE CULTURE 9:46 PM [facility] REPOSITORY Sp. Request/Comment: - Specimen received in preservative Culture Result - <10,000 CFU/ml Enterococcus faecalis --> ABNORMAL ALERT Cephalosporins, clindamycin, and TMP-SMX are not effective for the treatment of enterococcal infections. --> ABNORMAL AL ERT Insignificant colony count. No further workup. --> ABNORMAL ALERT 10,000 - <50,000 CFU/ml Normal urogenital almaz Performed By: #### URCUL #### [facility] [address] [place] [address] [place] [address] ED NOTE Observed: 08/20/2017 Status: COMPLETED Source: [place] 9:44 PM [facility] REPOSITORY HNO ID: [id number] Author: Rupali Taylor (Rn), RN Service: (none) Author Type: Registered Nurse Type: ED Notes Filed: 08/20/2017 9:45 PM Note Text: Up to restroom to attempt void. ED NOTE Observed: 08/20/2017 Status: COMPLETED Source: [place] 9:40 PM [facility] OTHER CAMPUS REPOSITORY HNO ID: [id number] Author: Isabell Duran (Rn), RN Service: (none) Author Type: Registered Nurse Type: ED Notes Filed: 08/20/2017 9:40 PM Note Text: Pt presents with c/o right flank pain with nausea that began today. Pt has hx of kidney stones. CBC AND DIFFERENTIAL Collected: 08/20/2017 Status: F Source: [place] 9:35 PM [facility] OTHER CAMPUS REPOSITORY TYPE CODE TESTS RESULT OUT OF REFERENCE UNITS RANGE LAB WBC 3.70-11.00 k/uL WBC 10.38 LAB RBC 3.90-5.20 m/uL RBC 4.60 LAB HGB 11.5-15.5 g/dL Hemoglobin 14.8 LAB HCT 36.0-46.0 % Hematocrit 44.4 LAB MCV 80.0-100.0 fL MCV 96.5 LAB MCH 26.0-34.0 pG MCH 32.2 LAB MCHC 30.5-36.0 g/dL MCHC 33.3 LAB RDWCV 11.5-15.0 % RDW-CV 12.9 LAB PLTCT 150-400 k/uL Platelet Count 200 LAB MPV 9.0-12.7 fL MPV 11.2 LAB ANEUT % Neut% 71.9 LAB AANEUT 1.45-7.50 k/uL Abs Neut 7.47 LAB ALYMP % Lymph% 21.3 LAB AALYMP 1.00-4.00 k/uL Abs Lymph 2.21 LAB AMONO % Barren% 5.8 LAB AAMONO <0.87 k/uL Abs Barren 0.60 LAB AEOS % Eosin% 0.8 LAB AAEOS <0.46 k/uL Abs Eosin 0.08 LAB ABASO % Baso% 0.2 LAB AABASO <0.11 k/uL Abs Baso <0.03 Performed By: #### CBCDIF, CMP, LIPA #### [facility] [address] [facility] [phone] COMP METABOLIC PANEL Collected: 08/20/2017 Status: F Source: [place] 9:35 PM [facility] OTHER CAMPUS REPOSITORY TYPE CODE TESTS RESULT OUT OF REFERENCE UNITS RANGE LAB TP 6.3-8.0 g/dL Protein, Total 7.7 LAB ALB 3.9-4.9 g/dL Albumin 4.6 LAB CA 8.5-10.2 mg/dL Calcium, Total 9.4 LAB TBIL 0.2-1.3 mg/dL Bilirubin, Total 0.3 LAB ALKP 32-117 U/L Alkaline Phosphatase 47 LAB AST 13-35 U/L AST 14 LAB GLU 74-99 mg/dL Glucose 86 Result Comment: The [place] [employer] (ADA) provides guidance for cutoff values for fasting glucose and random glucose. The ADA defines fasting as no caloric intake for at least 8 hours. Fas ting plasma glucose results between 100 to 125 mg/dL indicate increased risk for diabetes (prediabetes). Fasting plasma glucose results greater than or equal to 126 mg/dL meet the criteria for diagnosis of diabetes. In the absence of unequivocal hyperglycemia, results should be confirmed by repeat testing. In a patient with classic symptoms of hyperglycemia or hyperglycemic crisis, random plasma glucose results greater than or equal to 200 mg/dL meet the criteria for diagnosis of diabetes. Reference: Standards of Medical Care in Diabetes 2016, [place] [employer]. Diabetes Care. 2016.39(Suppl 1). LAB BUN 7-21 mg/dL BUN 21 LAB CRET 0.58-0.96 mg/dL Creatinine 0.84 LAB NA 136-144 mmol/L Sodium 140 LAB K 3.7-5.1 mmol/L Potassium 3.7 LAB CL 97-105 mmol/L Chloride 102 LAB CO2 22-30 mmol/L CO2 26 LAB AGAP 9-18 mmol/L Anion Gap 12 LAB ALT 7-38 U/L ALT 11 LAB GFRAA eGFR- Amer. >60 LAB GFRNAA . eGFR-All Other Races >60 Result Comment: eGFR (Estimated GFR) Units of measure: mL/min/1.73 meters squared eGFR is derived from the reexpressed MDRD Study equation using the following parameters: serum creatinine, age, gender and race. The creatinine assay has been calibrated to be traceable to IDMS. An eGFR <60 mL/min/1.73m2 for >3 months is consistent with chronic kidney disease. Refer to KDOQI guidelines for clinical interpretation. In patients with unstable renal function, e.g. those with acute kidney injury, the eGFR may not accurately reflect actual GFR. Performed By: #### CBCDIF, CMP, LIPA #### [facility] [address] [facility] [phone] LIPASE Collected: 08/20/2017 Status: F Source: [place] 9:35 PM [facility] OTHER [place] REPOSITORY TYPE CODE TESTS RESULT OUT OF REFERENCE UNITS RANGE LAB LIPA 16-61 U/L Lipase 36 Performed By: #### CBCDIF, CMP, LIPA #### [facility] [address] [facility] [phone] HOSP Observed: 08/20/2017 Status: COMPLETED Source: [place] 12:00 AM [facility] OTHER [place] REPOSITORY Patient:Lynn Nieto MRN: <[id number]> Height:5' 6(1.676 m) Weight:155 lb (70.308 kg) Outpatient Medications as of 08/21/17: levonorgestrel (MIRENA) 20 mcg/24 hour (5 years) IUD Admission/Clinic Administered Medications as of 08/21/17: morphine 4 mg injection ketorolac 30 mg injection (TORADOL) NaCl 0.9% iv infusion aluminum-magnesium hydroxide-simethicone 200-200-20 mg/5 mL 30 mL (MAALOX,MYLANTA,MAG-AL PLUS) ondansetron orally disintegrating 4 mg tab(s) (ZOFRAN ODT) ondansetron (PF) 4 mg injection (ZOFRAN) magnesium hydroxide 400 mg/5 mL 30 mL (MOM) tamsulosin ER 0.4 mg cap(s) (FLOMAX) Problem List: IUD (intrauterine device) in place [Z97.5] Kidney stone on right side [N20.0] Allergies: Codeine Shellfish Containing Products Date Verified: 08/21/17 Lab Values Lab Value Units Date High Low POTA* 3.7 mmol/L 08/20/2017 5.1 3.7 NANO* 44.4 % 08/20/2017 46.0 36.0 Progress Notes (RADIO [facility]): Rena Chaparro (Ct), CT 08/20/2017 10:44 PM Sign at close encounter Radiology Service Progress Note PATIENT NAME: Lynn Nieto DATE OF SERVICE: August 20, 2017 TIME: 10:44 PM PATIENT IDENTITY VERIFICATION COMPLETED USING TWO (2) METHODS: Patient confirmed name verbally and ID band matches.. PATIENT GENDER DATA: Female. status: : No status: NO. PATIENT RELEVANT IMPLANT DATA REVIEWED: Not Applicable RADIOLOGY DEPARTMENT: CT; Exam(s) Completed: Abdomen/Pelvis PERIPHERAL IV DATA: Not applicable SIGNED BY: HARLAN Nichole August 20, 2017 10:44 PM PROGRESS Observed: 07/03/2017 Status: COMPLETED Source: [place] 3:41 PM [facility] REPOSITORY HNO ID: [id number] Author: Manuel Pavon MD Service: (none) Author Type: Physician Type: Progress Notes Filed: 07/04/2017 11:11 AM Note Text: Lynn Nieto is a 47 year old who presents for her annual gynecologic exam without complaints. Thorough past history obtained/updated/reviewed with today's visit. Pt states there are no significant changes to her past medical and surgical history. Menses: no menses - Mirena IUD. Contraception: IUD- doesn't feel for strings Last Pap: 2014 normal HPV: negative History of abnormal pap: Yes- colpo many years ago, spontaneously resolved Last mammogram: 2014normal Prior history of abnormal mammogram none. Sexually active: Yes History of STDS: None Obstetric History T3 L3 SAB0 TAB0 Ectopic0 Multiple0 Live Births3 PAST MEDICAL HISTORY Diagnosis Date - IUD (intrauterine device) in place 07/08/12 Mirena - Kidney stone PAST SURGICAL HISTORY Procedure Laterality Date - APPENDECTOMY HX - LAPAROSCOPIC APPENDECTOMY during first - TOOTH EXTRACTION x4 wisdom teeth FAMILY HISTORY Problem Relation Age of Onset - No Family History No Family History female/colon/prostate/pancreatic CA SOCIAL HISTORY Social History Substance Use Topics - Smoking status: Never Smoker - Smokeless tobacco: Never Used - Alcohol use No REVIEW OF SYSTEMS Abdomen: No abdominal pain, nausea, vomiting, diarrhea, or constipation. No bloating, early satiety, indigestion, or increased flatulence. Bladder: No dysuria, gross hematuria, urinary frequency, urinary urgency, or incontinence. Breast: No breast lumps, nipple d/c, overlying skin changes, redness or skin retraction and +/-SBE normal. Allergies and current medication updated:Yes EXAM: BP 102/60 Wt 166 lb 12.8 oz (75.7kg) GENERAL: pleasant, female in no apparent distress HEENT: Normocephalic, atraumatic, mucus membranes moist and no lesions NECK: Supple, full range of motion, no adenopathy and thyroid normal DERMATOLOGY: Normal, without lesions, non-icteric and non-hirsute BREAST: soft, non-tender, symmetric, no dominant mass, normal nipple-areolar complex, no lymphadenopathy and no nipple discharge CHEST: Clear to auscultation Normal inspiratory effort Regular rate and rhythm ABDOMEN: soft, non-tender and no masses PELVIC: external genitalia normal, normal Bartholin's glands, urethra, [employer] glands, no vulvar lesions, no cervical lesions, physiologic discharge present, normal appearing perineal body and perianal region BIMANUAL: uterus normal size, shape and consistency, no adnexal masses, non-tender and IUD strings easily palpable RECTOVAGINAL: deferred. NEURO: alert and oriented x3,exam grossly non-focal EXTREMITIES: normal ASSESSMENT/PLAN: 1) Health maintenance: Pap/HPV up to date. Mammogram ordered. Nutrition, exercise and routine health maintenance exams reviewed. Calcium/Vitamin D supplementation information provided. 2) Contraception: IUD- is due for replacement (will send FC AND will follow up in near future for a pull AND replace) 3) Follow up one year or sooner as needed 4) Pt made aware that we will notify of Abnormal results only. She may contact office to get any results at her convenience; I have also encouraged her to activate her [employer]. Manuel Pavon MD CNOV Observed: 07/03/2017 Status: COMPLETED Source: [place] 3:00 PM [facility] REPOSITORY Office Visit (OBGMEM) LYNN NIETO ([id number]) 1970 F Date Time Provider Department 07/03/17 3:00 PM MANUEL PAVON During your visit today, we recorded the following information about you: Blood pressure Weight 102/60 75.7 kg Manuel Pavon MD, MD 07/04/2017 11:11 AM Signed Lynn Nieto is a 47 year old who presents for her annual gynecologic exam without complaints. Thorough past history obtained/updated/reviewed with today's visit. Pt states there are no significant changes to her past medical and surgical history. Menses: no menses - Mirena IUD. Contraception: IUD- doesn't feel for strings Last Pap: 2014 normal HPV: negative History of abnormal pap: Yes- colpo many years ago, spontaneously resolved Last mammogram: 2014normal Prior history of abnormal mammogram none. Sexually active: Yes History of STDS: None Obstetric History T3 L3 SAB0 TAB0 Ectopic0 Multiple0 Live Births3 PAST MEDICAL HISTORY Diagnosis Date - IUD (intrauterine device) in place 07/08/12 Mirena - Kidney stone PAST SURGICAL HISTORY Procedure Laterality Date - APPENDECTOMY HX - LAPAROSCOPIC APPENDECTOMY during first - TOOTH EXTRACTION x4 wisdom teeth FAMILY HISTORY Problem Relation Age of Onset - No Family History No Family History female/colon/prostate/pancreatic CA SOCIAL HISTORY Social History Substance Use Topics - Smoking status: Never Smoker - Smokeless tobacco: Never Used - Alcohol use No REVIEW OF SYSTEMS Abdomen: No abdominal pain, nausea, vomiting, diarrhea, or constipation. No bloating, early satiety, indigestion, or increased flatulence. Bladder: No dysuria, gross hematuria, urinary frequency, urinary urgency, or incontinence. Breast: No breast lumps, nipple d/c, overlying skin changes, redness or skin retraction and +/-SBE normal. Allergies and current medication updated:Yes EXAM: BP 102/60 Wt 166 lb 12.8 oz (75.7kg) GENERAL: pleasant, female in no apparent distress HEENT: Normocephalic, atraumatic, mucus membranes moist and no lesions NECK: Supple, full range of motion, no adenopathy and thyroid normal DERMATOLOGY: Normal, without lesions, non-icteric and non-hirsute BREAST: soft, non-tender, symmetric, no dominant mass, normal nipple-areolar complex, no lymphadenopathy and no nipple discharge CHEST: Clear to auscultation Normal inspiratory effort Regular rate and rhythm ABDOMEN: soft, non-tender and no masses PELVIC: external genitalia normal, normal Bartholin's glands, urethra, [employer] glands, no vulvar lesions, no cervical lesions, physiologic discharge present, normal appearing perineal body and perianal region BIMANUAL: uterus normal size, shape and consistency, no adnexal masses, non-tender and IUD strings easily palpable RECTOVAGINAL: deferred. NEURO: alert and oriented x3,exam grossly non-focal EXTREMITIES: normal ASSESSMENT/PLAN: 1) Health maintenance: Pap/HPV up to date. Mammogram ordered. Nutrition, exercise and routine health maintenance exams reviewed. Calcium/Vitamin D supplementation information provided. 2) Contraception: IUD- is due for replacement (will send FC ANDamp; will follow up in near future for a pull ANDamp; replace) 3) Follow up one year or sooner as needed 4) Pt made aware that we will notify of Abnormal results only. She may contact office to get any results at her convenience; I have also encouraged her to activate her [employer]. MD Manuel Unger MD, 07/03/2017 3:42 PM Addendum ACOG Screening Guidelines (2015) The following health screening schedule is recommended by the [place] [employer] (ACOG). Some of these tests may be ordered or performed by your primary care doctor. Pap test screening The pap test looks at cells on the cervix (the opening from the vagina to the uterus) to look for cancer or pre-cancerous changes. These changes are caused by the human papillomavirus (HPV). Studies estimate that half of all women will test positive for this virus within 3 years of starting sexual activity. For young women with a normal immune system, 90% of HPV infections will resolve within 2 years. There is a vaccine available against some forms of HPV. This is recommended for girls and women age 9-26 and is a series of 3 injections over 6 months. Because this vaccine does not protect against all HPV types which can cause cervical cancer, women who received the vaccine still need pap tests. Pap smear screening should be started at age 21. The pap test should be done every 3 years from age 21-29. From age 30-65, pap smears can be done every 5 years if HPV test is negative or every 3 years if HPV testing is not done. For women over the age of 65, ACOG recommends against screening women who have had adequate prior screening and are not otherwise at high risk for cervical cancer. Women who have had a hysterectomy also do not need routine pap smear screening unless the pap smear was done for a cervical cancer or moderate to severe dysplasia. Breast cancer screening Mammogram should be performed every 1-2 years starting at age 40 and every year starting at age 50. Screening may be started earlier depending on family history. Cholesterol screening Lipid panel (cholesterol test) should be checked every 5 years starting at age 45. Diabetes screening Fasting glucose (blood sugar) test should be performed every 3 years starting at age 45. Colorectal cancer screening Starting at age 50, women should have a screening colonoscopy at least every 10 years. Screening may be started earlier depending on family history. Thyroid screening Thyroid function test (TSH) should be checked every 5 years starting at age 50. Bone mineral density screening All postmenopausal women age 65 and over and postmenopausal women with risk factors for osteoporosis should have a bone mineral density test performed. Risk factors include race, family history of osteoporosis, personal history of fractures, poor nutrition, smoking, heavy alcohol use, early menopause, low calcium intake and low body weight. Certain medical conditions and long-term use of some medications may also increase risk. Calcium and Vitamin D Supplementation (from the National Institutes of Health Office of Dietary Supplements 2011) Calcium is required by the body for blood vessel, muscle, hormone and nerve functioning. Most of the body's calcium is stored in the bones and teeth where it supports structure and function. Bone is continuously broken down and reformed. When bone breakdown exceeds formation, especially in postmenopausal women, bone loss can increase the risk of osteoporosis and fractures. In addition to low calcium intake, women who smoke, have a family history of osteoporosis, are thin, or , or who take certain medications such as cancer chemotherapy, seizure mediations and steroids are at increased risk of osteoporosis. The calcium requirements in women change with age. The National Institutes of Health (NIH) recommends: 1000mg elemental calcium for premenopausal women age 19-50 1200mg elemental calcium for postmenopausal women and all women over 50 Milk, yogurt, and cheese are rich natural sources of calcium and are the major food contributors in the [place]. For example, 8oz of milk (whole, lowfat or skim) contains about 300mg calcium, 8oz of yogurt contains 415mg. Nondairy sources include salmon and sardines and vegetables, such as [place]ian cabbage, kale, and broccoli. Foods fortified with calcium include many fruit juices, tofu and cereals. For more food calcium content information, visit http://ods.od.nih.gov/factsheets/calcium. Calcium supplements come in several different forms. Remember that the recommendations are for millgrams (mg) of elemental calcium which may be less than the total weight of the supplement. The amount of elemental calcium is required to be printed on the label. Calcium carbonate is the least expensive form. It must be taken on a full stomach to be properly absorbed. Some patients may experience gas or constipation. Calcium phosphate and calcium citrate may be taken either with or without food and tend to have less side effects but are generally more expensive. Because of its ability to neutralize stomach acid, calcium carbonate is found in some [id number]-[id number] antacid products, such as Tums? and Rolaids?. Depending on its strength, each chewable pill or softchew provides 200 to 400 mg of elemental calcium. The percentage of calcium absorbed depends on the total amount of elemental calcium consumed at one time. Absorption is highest in doses ANDlt;500mg. So a woman who takes 1,000mg/day of calcium from supplements should split the dose and take 500mg at two separate times during the day. Too much calcium can cause kidney stones, constipation, difficulty absorbing other nutrients and calcium buildup in blood vessels. Women under 50 should not exceed 2500mg/day (2000mg/day for women over 50) of calcium from food and supplements. Excessive alcohol and caffeine intake can inhibit absorption of calcium. Calcium can reduce the absorption of some medications if taken at the same time of day (bisphosphonates, thyroid medication, Phenytoin and other seizure medications, some antibiotics and iron supplements). Vitamin D promotes calcium absorption in the gut and maintains adequate blood levels of calcium and phosphate for normal bone growth and bone remodeling. Vitamin D also helps regulate cell growth as well as nerve, muscle and immune system function. Vitamin D is produced in the skin as a result of ultraviolet sunlight rays and must be altered in the liver and kidney to become its active form. Recommended intake according to the National Institutes of Health is 600 International Units (IU) for girls and women ages 1-70 and 800 IU for women over 70. Very few foods in nature contain vitamin D. The flesh of fatty fish (such as salmon, tuna, and mackerel) and fish liver oils are among the best sources. Small amounts of vitamin D are found in beef liver, cheese, mushrooms and egg yolks. Most people meet at least some of their vitamin D needs through exposure to sunlight. Season, time of day, length of day, cloud cover, smog, skin melanin content, and sunscreen are among the factors that affect UV radiation exposure and vitamin D synthesis. Despite the importance of the sun for vitamin D synthesis, it is prudent to limit exposure of skin to sunlight and avoid tanning beds. UV radiation is a carcinogen responsible for most of the estimated 1.5 million skin cancers that occur annually in the [place]. Lifetime cumulative UV damage to skin is also responsible for some age-associated dryness and other cosmetic changes. In supplements and fortified foods, vitamin D is available in two forms, D2 (ergocalciferol) and D3 (cholecalciferol). The two are equivalent at normal supplement doses. For women who require high supplement doses because of vitamin D deficiency, D3 may work better to raise blood levels. Some medications can prevent proper absorption of Vitamin D. These include laxatives, corticosteroids like prednisone, the seizure drugs phenobarbital and phenytoin, the weight-loss drug orlistat ( Xenical? and AlliTM) and the cholesterol-lowering drug cholestyramine (Questran?, LoCholest?, and Prevalite?). Talk to your doctor about adjusting your recommended daily vitamin D dosage if you take these medications. You should not exceed 4000 mg of vitamin D supplementation daily unless specifically prescribed by your doctor. Referring Provider: MANUEL PAVON [[id number]] Allergies As of Date: 07/03/2017 Noted Allergy Reaction CODEINE 11/21/2011 1 - Mental Status Change Date Reviewed: 07/03/2017 Reviewed by: Manuel Pavon MD - Fully Assessed Reason for Visit: Follow Up [171] Cmt: annual Reason For Visit History Recorded Primary Visit Diagnosis:Encounter for gynecological examination (general) (routine) without abnormal findings [Z01.419] Other Visit Diagnosis:Encounter for screening mammogram for breast cancer [Z12.31] Order(s):IMMANUEL SCREENING Dior QUIROGA [[id number]] Order #: [id number] FUTURE Prescriptions as of 07/03/2017 Sig: LEVONORGESTREL 20 MCG/24 HR (* Use as directed after in offi* Problem List As Of Date 07/03/2017 Noted Resolved Pre-procedural examination [Z01.818] INVALID FOR*07/08/2012 IUD (intrauterine device) in place [Z97.5] More... Other instructions from your clinician: ACOG Screening Guidelines (2015) The following health screening schedule is recommended by the [place] [employer] (ACOG). Some of these tests may be ordered or performed by your primary care doctor. Pap test screening The pap test looks at cells on the cervix (the opening from the vagina to the uterus) to look for cancer or pre-cancerous changes. These changes are caused by the human papillomavirus (HPV). Studies estimate that half of all women will test positive for this virus within 3 years of starting sexual activity. For young women with a normal immune system, 90% of HPV infections will resolve within 2 years. There is a vaccine available against some forms of HPV. This is recommended for girls and women age 9-26 and is a series of 3 injections over 6 months. Because this vaccine does not protect against all HPV types which can cause cervical cancer, women who received the vaccine still need pap tests. Pap smear screening should be started at age 21. The pap test should be done every 3 years from age 21-29. From age 30-65, pap smears can be done every 5 years if HPV test is negative or every 3 years if HPV testing is not done. For women over the age of 65, ACOG recommends against screening women who have had adequate prior screening and are not otherwise at high risk for cervical cancer. Women who have had a hysterectomy also do not need routine pap smear screening unless the pap smear was done for a cervical cancer or moderate to severe dysplasia. Breast cancer screening Mammogram should be performed every 1-2 years starting at age 40 and every year starting at age 50. Screening may be started earlier depending on family history. Cholesterol screening Lipid panel (cholesterol test) should be checked every 5 years starting at age 45. Diabetes screening Fasting glucose (blood sugar) test should be performed every 3 years starting at age 45. Colorectal cancer screening Starting at age 50, women should have a screening colonoscopy at least every 10 years. Screening may be started earlier depending on family history. Thyroid screening Thyroid function test (TSH) should be checked every 5 years starting at age 50. Bone mineral density screening All postmenopausal women age 65 and over and postmenopausal women with risk factors for osteoporosis should have a bone mineral density test performed. Risk factors include race, family history of osteoporosis, personal history of fractures, poor nutrition, smoking, heavy alcohol use, early menopause, low calcium intake and low body weight. Certain medical conditions and long-term use of some medications may also increase risk. Calcium and Vitamin D Supplementation (from the National Institutes of Health Office of Dietary Supplements 2011) Calcium is required by the body for blood vessel, muscle, hormone and nerve functioning. Most of the body's calcium is stored in the bones and teeth where it supports structure and function. Bone is continuously broken down and reformed. When bone breakdown exceeds formation, especially in postmenopausal women, bone loss can increase the risk of osteoporosis and fractures. In addition to low calcium intake, women who smoke, have a family history of osteoporosis, are thin, or , or who take certain medications such as cancer chemotherapy, seizure mediations and steroids are at increased risk of osteoporosis. The calcium requirements in women change with age. The National Institutes of Health (NIH) recommends: 1000mg elemental calcium for premenopausal women age 19-50 1200mg elemental calcium for postmenopausal women and all women over 50 Milk, yogurt, and cheese are rich natural sources of calcium and are the major food contributors in the [place]. For example, 8oz of milk (whole, lowfat or skim) contains about 300mg calcium, 8oz of yogurt contains 415mg. Nondairy sources include salmon and sardines and vegetables, such as Guamanian cabbage, kale, and broccoli. Foods fortified with calcium include many fruit juices, tofu and cereals. For more food calcium content information, visit http://ods.od.nih.gov/factsheets/calcium. Calcium supplements come in several different forms. Remember that the recommendations are for millgrams (mg) of elemental calcium which may be less than the total weight of the supplement. The amount of elemental calcium is required to be printed on the label. Calcium carbonate is the least expensive form. It must be taken on a full stomach to be properly absorbed. Some patients may experience gas or constipation. Calcium phosphate and calcium citrate may be taken either with or without food and tend to have less side effects but are generally more expensive. Because of its ability to neutralize stomach acid, calcium carbonate is found in some snig-pwl-kmsovwj antacid products, such as Tums? and Rolaids?. Depending on its strength, each chewable pill or softchew provides 200 to 400 mg of elemental calcium. The percentage of calcium absorbed depends on the total amount of elemental calcium consumed at one time. Absorption is highest in doses <500mg. So a woman who takes 1,000mg/day of calcium from supplements should split the dose and take 500mg at two separate times during the day. Too much calcium can cause kidney stones, constipation, difficulty absorbing other nutrients and calcium buildup in blood vessels. Women under 50 should not exceed 2500mg/day (2000mg/day for women over 50) of calcium from food and supplements. Excessive alcohol and caffeine intake can inhibit absorption of calcium. Calcium can reduce the absorption of some medications if taken at the same time of day (bisphosphonates, thyroid medication, Phenytoin and other seizure medications, some antibiotics and iron supplements). Vitamin D promotes calcium absorption in the gut and maintains adequate blood levels of calcium and phosphate for normal bone growth and bone remodeling. Vitamin D also helps regulate cell growth as well as nerve, muscle and immune system function. Vitamin D is produced in the skin as a result of ultraviolet sunlight rays and must be altered in the liver and kidney to become its active form. Recommended intake according to the National Institutes of Health is 600 International Units (IU) for girls and women ages 1-70 and 800 IU for women over 70. Very few foods in nature contain vitamin D. The flesh of fatty fish (such as salmon, tuna, and mackerel) and fish liver oils are among the best sources. Small amounts of vitamin D are found in beef liver, cheese, mushrooms and egg yolks. Most people meet at least some of their vitamin D needs through exposure to sunlight. Season, time of day, length of day, cloud cover, smog, skin melanin content, and sunscreen are among the factors that affect UV radiation exposure and vitamin D synthesis. Despite the importance of the sun for vitamin D synthesis, it is prudent to limit exposure of skin to sunlight and avoid tanning beds. UV radiation is a carcinogen responsible for most of the estimated 1.5 million skin cancers that occur annually in the [place]. Lifetime cumulative UV damage to skin is also responsible for some age-associated dryness and other cosmetic changes. In supplements and fortified foods, vitamin D is available in two forms, D2 (ergocalciferol) and D3 (cholecalciferol). The two are equivalent at normal supplement doses. For women who require high supplement doses because of vitamin D deficiency, D3 may work better to raise blood levels. Some medications can prevent proper absorption of Vitamin D. These include laxatives, corticosteroids like prednisone, the seizure drugs phenobarbital and phenytoin, the weight-loss drug orlistat ( Xenical? and AlliTM) and the cholesterol-lowering drug cholestyramine (Questran?, LoCholest?, and Prevalite?). Talk to your doctor about adjusting your recommended daily vitamin D dosage if you take these medications. You should not exceed 4000 mg of vitamin D supplementation daily unless specifically prescribed by your doctor. Disposition: Return in 1 year (on 07/03/2018), or if symptoms worsen or fail to improve, for Annual Exam. Follow-up and Disposition History Recorded Encounter Status:Closed by MANUEL PAVON MD on 07/04/17 ALLERGIES ALLERGIES DATE TYPE / CODE NAME / CODE REACTION SEVERITY SOURCE 03/05/2018 Drug Gadolinium-MRI Anaphylaxis Unknown Bhargav Allergy/416 Contrast [facility] 188693([facility] Medium/[id number] Hospital ED CT) 9(RXNORM) Repository 03/05/2018 Drug codeine/[id number] Other Unknown [place] Allergy/416 50(RXNORM) Community 299609([facility] ED CT) Repository 03/05/2018 Drug shellfish Anaphylaxis Unknown Bhargav Allergy/416 derived/[id number] [facility] 915974([facility] 54(RXNORM) [facility] ED CT) Repository 08/21/2017 Drug SHELLFISH HIVES [facility] Class/50595 CONTAINING Other [place] 1003(SNOMED PRODUCTS Repository CT) 11/21/2011 DRUG CODEINE Mental Chg [facility] INGREDI/419 Other [place] 778208(SNOM Repository ED CT) NG/[id number] CODEINE [facility] 6(SNOMED [facility]) Repository NG/[id number] SHELLFISH [facility] 6(SNOMED [facility] Health System CT) PRODUCTS Repository ENCOUNTERS ENCOUNTERS ADMIT/DISCHARGE ACCOUNT NUMBER ADMITTING ENCOUNTER LOCATION SOURCE CLASS 03/21/2018 [id number] Ambulatory [facility] ding:MTRAD Repository 03/15/2018/03/15/20 [id number] Emergency [address] Other [place] Repository 03/12/2018/03/12/20 [id number] Ambulatory [address] ding:SDCRoom Repository : AC06 02/01/2018 [id number] Ambulatory [facility] ding:CT Repository 01/17/2018 [id number] Ambulatory [facility] MEDICAL Repository CENTERBuildi ng:AKUF 10/30/2017/11/03/19 [id number] Ambulatory [address] Main [place] Repository 10/18/2017 [id number] Ambulatory [facility] Other [place] Repository 10/18/2017 [id number] Ambulatory [facility] Other [place] Repository 10/02/2017/10/04/19 [id number] Ambulatory [address] Main [place] Repository 09/06/2017/09/07/19 [id number] Ambulatory [address] Other [place] Repository 09/06/2017/09/07/19 [id number] Ambulatory [address] MEDICAL Repository CARLSTADTBuildi ng:AKUF 08/30/2017/09/01/19 [id number] DESMOND GANN, Ambulatory [address] Other [place] Repository 08/30/2017/09/01/19 [id number] DESMOND, Inpatient [address] MEDICAL Repository CARLSTADTBuildi nRoom: 5118Bed: 08/29/2017/08/30/19 [id number] Ambulatory [address] Other [place] Repository 08/29/2017/08/30/19 [id number] Ambulatory [address] MEDICAL Repository CARLSTADTBuildi ng:AKUF 08/28/2017/08/29/19 [id number] Emergency [address] Other [place] Repository 08/20/2017/08/23/19 [id number] VIDHI, Ambulatory [address] Other [place] Repository 07/03/2017/07/06/19 [id number] Ambulatory [address] Main [place] Repository PAYERS PAYERS ENCOUNTER GUARANTOR PAYER SUBSCRIBER SOURCE 03/21/2018 LYNN [id number] Primary LYNN LAMMODOB: Bhargav DORAN Insurance:[id number] [address]170Eqi: (330) Number: Repository [phone] [id number] Date:[id number] [address]FU: 03/21/2018 Secondary NOT GIVENUNK Bhargav Insurance:SELF PAY [facility] Number: Effective Repository Date:2018-03-21 03/12/2018 LYNN [id number] Primary LYNN L GUMMODOB: Bhargav [place] Insurance:MEDICAL [id number] County Hospital [address]Ejr: (330) Number: Repository [phone] () [id number] Date:[id number] [address] [address]WW: 03/12/2018 Secondary NOT GIVENUNK Bhargav Insurance:SELF PAY [facility] Number: Effective Repository Date:2018-02-12 02/01/2018 LYNN [id number] Primary LYNN Montelongo GUMMODOB: [place] Insurance:[facility] [id number] County Hospital [address]Gok: (330) Number: Repository [phone] () [id number] Date:[id number] [address] [address]TZ: 02/01/2018 Secondary NOT GIVENUNK Bhargav Insurance:SELF PAY [facility] Number: Effective Repository Date:2018-01-24 01/17/2018 LYNN Montelongo GUMMODOB: Primary Insurance:MMO LYNN L GUMMODOB: [facility] [id number] Number: Repository [place], [place] [id number]: (330) Date: 53 () 09/06/2017 LYNN L GUMMODOB: Primary Insurance:MMO LYNN L GUMMODOB: [facility] [id number] General Hospital Number: [facility] [place] [place] [id number]: (330) Date: 69 () 08/30/2017 LYNN L GUMMODOB: Primary Insurance:MMO LYNN L GUMMODOB: [facility] [id number] [facility] [id number] General Hospital Number: Repository [place], [place] [id number]: (330) Date: () 08/29/2017 LYNN LAMLGOB: Primary Insurance:[place]ana [place]elongo GUMMODOB: [facility] [id number] General Hospital Number: Repository [facility] [place] [place] [id number]: (330) Date: ()
== END 2018-03-12 12:54 | disposition home or self-care (01) ==
LOC: SDC 07:55 → AC 07:56
PROVIDERS: Anesthesiology; Family Provider Family Medicine; PCP Family Medicine; Referring Provider Urology; Visit Provider Urology
PROC: 0TJ98ZZ Inspection of Ureter, Via Natural or Artificial Opening Endoscopic (ICD-10-PCS; CPT 52352; principal; 2018-03-12 09:10)
DX: N20.0 Calculus of kidney (principal); Z87.442 Personal history of urinary calculi
CPT/HCPCS: 00873; 52356; 76000; 81025; J7120; C1769; C1894; C2617; J2405

== ENCOUNTER → 2018-03-21 15:31 | Outpatient (CLI) | payer OTHER, SELFPAY ==
[2018-03-12 08:12] VITALS: BMI 26.9
--- NOTE | 2018-03-21 15:38 | RAD_ITS ---
STUDY: X-RAY - ABDOMEN/PELVIS REASON FOR EXAM: Female, 47 years old. Left-sided stent. Urinary stone. TECHNIQUE: Single AP view of the abdomen / pelvis. COMPARISON: CT February 01, 2018 FINDINGS: Normal visualized lung bases. There is an unremarkable bowel gas pattern. There is no demonstrated free abdominal air. There is stent extending from the left renal pelvis to the urinary bladder. There are small, 0.1 to 0.2 cm, stones in the region of the kidneys. There is IUD in the pelvis. Normal visualized osseous structures. RAD/Abdomen Single View IMPRESSION: Left renal stones. Left sided stent. Electronically Signed: Dean Mccall MD at 15:43 EST , Service support ,
== END ==
PROVIDERS: Family Provider Family Medicine; PCP Family Medicine; Referring Provider Urology; Visit Provider Urology
DX: N20.0 Calculus of kidney (principal)
CPT/HCPCS: 74018

== ENCOUNTER → 2019-03-19 15:32 | Outpatient (CLI) | payer OTHER, SELFPAY ==
--- NOTE | 2019-03-19 15:35 | RAD_ITS ---
STUDY: X-RAY - ABDOMEN/PELVIS REASON FOR EXAM: Female, 48 years old. History of kidney stones, no current complaints TECHNIQUE: Two AP supine views of the abdomen and pelvis. COMPARISON: Prior study of 03/21/2018 FINDINGS: Normal visualized lung bases. There is an unremarkable bowel gas pattern. There is no demonstrated free abdominal air. The visualized liver, spleen and kidneys are grossly normal in size and morphology. Bilateral pelvic phleboliths are present. An IUD is noted. Normal visualized osseous structures. RAD/Abdomen Single View IMPRESSION: IUD noted. There are bilateral pelvic phleboliths. There has been interval removal of a left-sided ureteral stent. There is no evidence of nephrolithiasis. Electronically Signed: Ar Joy MD at 21:11 EST , Service support ,
== END ==
LOC: MTRAD 15:33
PROVIDERS: Family Provider Family Medicine; PCP Family Medicine; Referring Provider Urology; Visit Provider Urology
DX: N20.0 Calculus of kidney (principal)
CPT/HCPCS: 74018

== ENCOUNTER → 2024-01-24 | Outpatient (CLI) | payer OTHER, SELFPAY ==
--- NOTE | 2024-01-24 15:19 | RAD_ITS ---
STUDY: X-RAY - ABDOMEN/PELVIS REASON FOR EXAM: Female, 53 years old. Flank pain TECHNIQUE: Two AP supine views of the abdomen and pelvis. COMPARISON: None. FINDINGS: Calcific densities overlying the left renal shadow. There are also calcific densities within the pelvis but these have lucent centers and are likely phleboliths. There is an abundance of fecal material throughout the colon. There is no demonstrated free abdominal air. The visualized liver, spleen and kidneys are grossly normal in size and morphology. IUD noted projecting over the left sacrum. Normal visualized osseous structures. RAD/Abdomen Single View IMPRESSION: Left nephrolithiasis Retained stool IUD noted Electronically Signed: João Seaman MD at 15:31 EDT ,
== END | disposition home or self-care (01) ==
PROVIDERS: PCP Family Medicine; Referring Provider Urology; Visit Provider Urology
DX: N20.0 Calculus of kidney (principal)
CPT/HCPCS: 74018

== ENCOUNTER 2024-02-21 05:55 | Day surgery (SDC) | payer OTHER, SELFPAY ==
[2024-02-21] VITALS (10 sets, daily range): BP systolic 107–117; BP diastolic 68–85; PULSE 61–83; RESP 16–17; TEMP 36.4–37; O2SAT 94–97; BMI 29.8
[2024-02-21 06:31] LABS: Internal QC Validated? YES +Cl - CLEAR BKGD; Pregnancy, Urine Negative Negative; Record Kit Lot#,Urine Preg 869294
[2024-02-21] MEDS: Lactated Ringers 1,000 ML 15 ML IV (06:33)
[2024-02-21] MEDS: Cefazolin 2 GM in Syringe IV (07:26)
== END 2024-02-21 09:59 | disposition home or self-care (01) ==
LOC: SDC 05:55 → AC 05:56
PROVIDERS: Anesthesiology; PCP Family Medicine; Referring Provider Urology; Visit Provider Urology
PROC: (CPT 50590; principal; 2024-02-21 07:20)
DX: N20.0 Calculus of kidney (principal); K21.9 Gastro-esophageal reflux disease without esophagitis; Z87.442 Personal history of urinary calculi
CPT/HCPCS: 50590; 81025; J7120; J2405

== ENCOUNTER → 2024-03-10 | Outpatient (CLI) | payer OTHER, SELFPAY ==
--- NOTE | 2024-03-10 14:12 | RAD_ITS ---
STUDY: X-RAY - ABDOMEN/PELVIS REASON FOR EXAM: Female, 53 years old. KIDNEY STONES TECHNIQUE: Single AP view of the abdomen / pelvis. COMPARISON: 03/21/2018 FINDINGS: Normal visualized lung bases. There is an unremarkable bowel gas pattern. The visualized liver, spleen and kidneys are grossly normal in size and morphology. Normal soft tissue structures. Normal visualized osseous structures. RAD/Abdomen Single View IMPRESSION: Normal x-ray examination of the abdomen and pelvis. Electronically Signed: Beau Baxter MD at 8:31 EST ,
== END | disposition home or self-care (01) ==
LOC: MTRAD 14:11
PROVIDERS: PCP Family Medicine; Referring Provider Urology; Visit Provider Urology
DX: N20.0 Calculus of kidney (principal)
CPT/HCPCS: 74018

== ENCOUNTER → 2024-09-16 | Outpatient (CLI) | payer OTHER, SELFPAY ==
--- NOTE | 2024-09-16 15:18 | RAD_ITS ---
PROCEDURE: ABDOMEN SINGLE VIEW 09/16/2024 REASON FOR EXAM: KUB- KIDNEY STONES TECHNIQUE: Frontal views of the abdomen . COMPARISON: Abdominal radiographs on 03/10/2024 and 01/24/2020 FINDINGS: Bowel gas: Bowel gas pattern is normal. No evidence of bowel obstruction. Calcifications: There are calcifications projecting over the left renal shadow which measure up to 3 mm in size, similar to radiographs on 01/24/2024. Phleboliths project in the pelvis. Bones: The bones are unremarkable. Other: IUD projects at the pelvis. RAD/Abdomen Single View IMPRESSION: Unchanged left renal shadow calcifications, which may again represent stones. Reading Location: [facility]
== END | disposition home or self-care (01) ==
LOC: MTRAD 15:17
PROVIDERS: PCP Family Medicine; Referring Provider Urology; Visit Provider Urology
DX: N20.0 Calculus of kidney (principal)
CPT/HCPCS: 74018